=== PATIENT | male | born 1950 | race Caucasian/White ===

== ENCOUNTER 2024-12-20 10:00 | Outpatient (RCR) | payer MEDICARE, SELFPAY ==
[2024-11-29 08:51] VITALS: BP 142/93; PULSE 87; RESP 16; TEMP 36.6; BMI 36.9
--- NOTE | 2024-11-29 13:16 | HP.PCM_ITS ---
History of Present Illness Date of Service: 11/29/24 Chief Complaint: Chronic Left Leg ULcer History of Wound: Ketty is a 74-year-old who was referred to the wound center due to nonhealing left leg ulcer. Ketty states this has been an ongoing issue since age 20 however current episode has been present since September. It was noted when he looked at his lower extremity with a mirror. No significant pain. Was seen by primary care who is also surgeon and had some interventions which did not yield any significant results so was subsequently referred to the wound center. Feels rather well. Reports a diet rich in protein. Questionable history of diabetes mellitus. No chills, fever or feeling of unwell. [facility] Medical History (Updated 11/29/24 @ 16:[address] Aissatou Ricketts MD) Bilateral lower extremity edema Stasis dermatitis of both legs Ulcer of left lower extremity with fat layer exposed Home Medications ?Medication ?Instructions ?Recorded ?Last Taken ?Type atorvastatin 40 mg tablet 40 mg PO DAILY 11/29/24 Unkn own History furosemide 20 mg tablet 20 mg PO DAILY 11/29/24 Unkn own History lisinopril 2.5 mg tablet 2.5 mg PO DAILY 11/29/24 Unk nown History metoprolol succinate 25 mg 25 mg PO DAILY 11/29/24 Unk nown History tablet,extended release 24 hr (Toprol XL) Allergy/AdvReac Type Severity Reaction Status Date / Time No Known Allergies Allergy Verified 11/29/24 09:12 Social History Smoking Status: Former smoker ROS Constitutional Constitutional: Denies fatigue, frequent falls, headache(s), increased appetite, lethargy, malaise or weight loss Eyes Eyes: Denies blindness, change in eye color, change in vision, discharge from eye(s), discongugate gaze or double vision ENT HEENT: Denies dysphagia, ear discharge, epistaxis, foreign body in nose, halitosis, headache(s), hearing loss or hoarseness Cardiovascular Cardiovascular: Denies claudication, cold extremities, cyanosis, diaphoresis, dyspnea at rest, dyspnea on exertion or easily tiring during activity Respiratory/Chest Respiratory/Chest: Denies chest congestion, difficulty clearing secretions, dry cough, excessive phlegm production, hemoptysis or hoarseness Gastrointestinal Gastrointestinal: Denies abdominal pain, bloating, chewing difficulty, coffee ground emesis, constipation or dyspepsia Genitourinary Genitourinary: Denies abdominal discomfort, difficulty urinating or flank pain Musculoskeletal Musculoskeletal: Denies extremity pain, limited range of motion, muscle spasms, muscle weakness, tingling or tremors Integumentary Integumentary: Reports skin ulcer; Denies erythema, furuncle, hirsutism, jaundice or pruritus Neurologic Neurologic: Denies abnormal speech, behavior changes, burning sensations, confusion, dizziness, focal weakness or frequent falls Psychiatric Psychiatric: Denies auditory hallucinations, behavioral changes, suicidal thoughts, tactile hallucinations or visual hallucinations Endocrine Endocrinology: Denies change in body appearance, deepening of the voice, excessive sweating, fatigue, heat intolerance, increase in ring/shoe/hat size or palpitations Hematologic/Lymphatic Hematologic/Lymphatic: Denies anemia, easy bleeding or easy bruising Allergic/Immunologic Allergic/Immunologic: Denies lip swelling, rhinitis, throat swelling, tongue swelling, hives, eczemia or wheezing Vital Signs Vital Signs Vital Signs: 11/29/24 08:51 Temperature 97.9 F Temperature Source Temporal Pulse Rate 87 Respiratory Rate 16 Blood Pressure 142/93 H Blood Pressure Mean 109 Blood Pressure Source Monitor Blood Pressure Position Semi-Fowlers Blood Pressure Location Right Arm Weight Weight: 265 lb Body Mass Index (BMI) 36.9 Physical Exam Const alert, oriented x3 and no apparent distress General Appearance: cooperative, comfortable and well kempt HEENT normocephalic, head/scalp atraumatic and hearing grossly normal bilaterally Head and Scalp: normal to inspection and normocephalic Eyes EOMs intact bilaterally General Eye: normal appearance of both eyes Neck full ROM General: normal visual inspection Resp normal respiratory effort and normal air movement Effort and Inspection: able to speak in complete sentences Cardio regular rate, S1 normal heart sound and S2 normal heart sound GI soft to palpation and non-tender Extremity General Extremity: edema Skin Wounds: wounds noted size Size: See clinical note, bed with slough, drainage serous, margins well approximated, no odor, open and surrounding erythema Neuro oriented x3, CN's II-XII intact bilaterally, moves all extremities and no focal motor deficits Psych mental status grossly normal, cooperative and affect normal Debridement Note Debridement Note Wound debrided: Left lower extremity (lateral) Type of Debridement: Excisional debridement Anesthesia Used: 5% Lidocaine Gel Depth: Down to and including healthy tissue and in the subcutaneous layer Percentage of wound debrided: 100 Instrument Used: 7mm curette Tissue Removed: Slough and devitalized tissue Severity: Fat Layer Exposed Amount of bleeding with debridement: Mild Bleeding Controlled with: Pressure Patient tolerated procedure: Patient tolerated procedure well Post-Debridement Measurements and Additional Note: Post-Debridement Measurements/Treatment - Nurse 1 - General Ulcer Assessment Start: 11/29/24 08:50 Freq: Status: Active Protocol: PRAMOD.LOWEXT Activity Type Activity Date Activity User E-sign Co-sign Detail Recorded Client Recorded Date Recorded By Document 11/29/24 08:51 [id number] 11/29/24 09:09 SEE 11/29/24 08:51 - Today's Visit Information Type of service Initial Visit Arrival Mode Ambulatory Patient Identification Verified (Name & No ) Patient Requires Transmission-Based No Precautions Height and Weight Height 5 ft 11 in Weight 265 lb Weight in Pounds 265.0 lbs Body Mass Index (BMI) 36.9 BMI Classification Obese Vital Signs Temperature (97.8 F-99.1 F) 97.9 F Temperature Source Temporal Pulse Rate (60-100) 87 Pulse Location Monitor Respiratory Rate (12-18) 16 Respiratory rate source Observation Blood Pressure (90/60-120/80) 142/93 H Blood Pressure Mean 109 Source Monitor Position Semi-Fowlers Blood Pressure Location Right Arm History Since Last Visit- (Skip if this is Patient's initial visit) Left Footwear Regular Shoe Right Footwear Regular Shoe Pain Scale: 0-10 Numeric Is Patient Pain Free? Yes Lower Extremity Assessment/ Foot Assessment/ Toe Nail Assessment Left -Posterior Tibial Palpable Yes -Posterior Tibial Doppler Multiphasic -Dorsalis Pedis Palpable Yes -Dorsalis Pedis Doppler Multiphasic -Hair Growth on Legs Yes -Hair Growth on Toes No -Temperature of Extremity Warm -Capillary Refill Less than 3 Seconds -Thick Yes -Discolored Yes -Deformed Yes -Improper Length & Hygeine No Communication Assessment Preferred language [place] Able to Read Yes Able to Write Yes Communication Tools None Caregiver Communication Skills No Impairment Impairment Right Hearing Abillity Normal Left Hearing Abillity Normal Visual Assistive Devices Glasses Teaching Assessment Preferences Verbal,Written, Audio/Visual, Demonstration Barriers to Learning None Readiness To Learn Good Willingness to Engage in Self Management High Activies Readiness to Engage in Self Management High Activities Anxiety Level Calm Cooperation Cooperative Perception Coherent Interest in Health Problem Asks Questions Education Importance Acknowledges Need Does Patient Smoke tobacco or other No substances Smoking Status Former smoker Is Patient Diabetic Yes Functional Assessment Recent Decline in Ability to Perform Denies Any Declines Culture/Denominational/Motor Coach Operator Cultural/Denominational Needs that may affect No Treatment Plan Would you allow our hospital rag production worker to No meet you for the purpose of spiritual/ emotional support? Motor Coach Operator to contact place of oriental orthodox No Teaching: Wound Center [facility] Orientation/ Contacting Physician -Person Taught Patient -Teaching Method Discussion, Demonstration -Response to teaching Return Demonstration, Verbalize Understanding - Nurse 1 - General Ulcer Measurement Start: 11/29/24 08:50 Freq: Status: Active Protocol: Activity Type Activity Date Activity User E-sign Co-sign Detail Recorded Client Recorded Date Recorded By Document 11/29/24 08:51 SEE [id number] 11/29/24 09:09 SEE 11/29/24 08:51 Wound Center Nurse 1 1-Left lateral leg -Combined with other wound No -Current Size (cm) - Length 4.7 -Current Size (cm) - Width 3.2 -Current Size (cm) - Depth 0.2 -Total Square Cm 15.04 -Photo Taken Yes -Epithelialization Small 1-33% -Tunneling No -Undermining/Tunneling No -Circular Undermining No -Classification - Soler Grading ( Grade 2 Diabetic Ulcer) -Exudate Amt Medium -Exudate Type Serosanguineous -Wound Margin Flat & Intact -Granulation Amt Medium (34-66%) -Granulation Quality Red -Slough/Fibrin Yes -Necrosis Amt Medium (34-66%) -Necrotic Tissue Type Adherent Slough -Structure Exposed N/A -Texture (Ashely-wound Skin Appearance) Assessed, Localized Edema -Moisture (Ashely-wound Skin Appearance) No Abnormality, Weeping -Color (Ashely-wound Skin Appearance) Assessed, Hemosiderin Staining -Temperature (Ashely-wound Skin No Abnormality Appearance) (Pt Warm) -Tenderness on Palpation (Ashely-wound No Skin Appearance) -Ulcer Cleansing Rinsed/ Irrigated with Saline -Foul Odor after Cleansing No -Anesthetic Used 5% Lidocaine Gel Lower Limb Edema Present Yes Right Calf (cm) 40.7 Right Ankle (cm) 26.0 Left Calf (cm) 43.6 Left Ankle (cm) 27.5 - Nurse 2 - General Ulcer CM Notes Start: 11/29/24 08:50 Freq: Status: Active Protocol: Activity Type Activity Date Activity User E-sign Co-sign Detail Recorded Client Recorded Date Recorded By Document 11/29/24 09:38 [id number] 11/29/24 09:48 11/29/24 09:38 Wound Center Nurse 2 1-Left lateral leg -Time 09:38 -Correct Patient Yes -Correct Side, Site, Position Yes -Correct Procedure Yes -Procedure Performed Yes -Type of Procedure Debridement -Clinical Debridement Subcutaneous -Tissue Removed Subcutaneous -Post Debridement (cm) - Length 4.8 -Post Debridement (cm) - Width 3.4 -Post Debridement (cm) - Depth 0.2 -Total Square (Post) (cm) 16.32 -Area of Debridement (cm) - Length 4.8 -Area of Debridement (cm) - Width 3.4 -Total Square (Area) (cm) 16.32 -Tunneling No -Undermining/Tunneling No -Circular Undermining No -Wound/Ulcer Outcome Not Healed -Ulcer Cleansing Rinsed/ Irrigated with Saline -Foul Odor after Cleansing No -Bioengineered Tissue No -Bleeding Controlled with Pressure -Treatment Response Procedure Tolerated Well -Offloading No -Debridement - Subq, 1st 20sq cm Yes Pain Scale: 0-10 Numeric Is Patient Pain Free? Yes - Nurse 3 - General Ulcer D/C NN Start: 11/29/24 08:50 Freq: Status: Active Protocol: Activity Type Activity Date Activity User E-sign Co-sign Detail Recorded Client Recorded Date Recorded By Document 11/29/24 10:08 [id number] 11/29/24 10:09 11/29/24 10:08 Wound Care Center Nurse 3 1-Left lateral leg -Ulcer Cleansing Rinsed/ Irrigated with Saline -Foul Odor after Cleansing No -Primary Dressing Applied Optilok 5x5 1/2 ,Promogran -Primary Dressing Covered/Secured with Dry Gauze -Optilok 5x5 1/2 1 -Promogran 1 LLE -Lotion applied to leg before Yes compression wrap -Multi-Layered Wrap Application Multi-Layer Comp - Left ($) -Multi-Layer Compression Left (Qty 1 applied) Pain Scale: 0-10 Numeric Is Patient Pain Free? Yes - Visit Discharge Discharge Condition Stable Ambulatory Status Ambulatory Transportation Private Auto Medication Reconcilliation completed & Yes provided to patient/care provider Clinical Summary of Care Provided Yes Charges/Coding Visit Charges Office Visits / Consults: 16430 OV L4 New 45min Procedures Integumentary [id number]: [id number] Lulu subq tissue 20 sq cm/< Assessment/Plan Assessment/Plan (1) Ulcer of left lower extremity with fat layer exposed: CODE(S): L97.922 - Non-pressure chronic ulcer of unspecified part of left lower leg with fat layer exposed (2) Stasis dermatitis of both legs: CODE(S): I87.2 - Venous insufficiency (chronic) (peripheral) (3) Bilateral lower extremity edema: CODE(S): R60.0 - Localized edema PLAN: Plan Debridement done as documented above, procedure was well-tolerated. Bilateral stasis dermatitis worse on the left compared to the right. Areas of excoriation/skin breakdown. Concern for dressing changes at home, lives alone and as above, did not identify left lower extremity ulcer until looked with a mirror. Culture taken, will review. For ease, Promogran with 3M wrap for edema management. Cover area of redness with Adaptic. Come in on Tuesday for nurse visit/change. Venous and arterial studies ordered, will review. Optimal dietary protein intake and diabetes control discussed, Ketty voiced understanding. Ketty's questions were answered and Ketty was advised to call with any further questions or concerns. This note was generated with [employer] dictation software. It may contain incorrect words, spelling, and punctuation that were not noted in checking the note before signing.
--- NOTE | 2024-11-30 10:26 | WC ---
PHOTO-LEFT LATERAL LEG 11/29/24
[2024-12-03 11:07] VITALS: BP 127/95; PULSE 83; RESP 18; TEMP 36.9; BMI 36.9
--- NOTE | 2024-12-06 08:57 | ART_ITS ---
Reason For Study Reason For Study: Chronic LLE Wound Procedure A bilateral lower extremity continuous wave Doppler with analog waveform analysis,segmental pressures,and ankle brachial indexes without exercise. Left Segmental Pressures Left brachial= 116mmHg. Left posterior tibial artery = 140mmHg. Left dorsalis pedis artery = 141mmHg. Left digit = 98 mmHg. The left posterior tibial artery waveforms are triphasic. The left dorsalis pedis waveforms are triphasic. Right Segmental Pressures Right brachial= 113mmHg. Right posterior tibial artery = 140mmHg. Right dorsalis pedis artery = 128mmHg. Right digit = 108 mmHg. The right posterior tibial artery waveforms are triphasic. The right dorsalis pedis waveforms are triphasic. Indices The right ankle brachial index by the posterior tibial artery is 1.21. The right ankle brachial index by the dorsalis pedis is 1.10. The right digital-brachial index is 0.93. The left ankle brachial index by the posterior tibial artery is 1.21. The left ankle brachial index by the dorsalis pedis is 1.22. The left digital-brachial index is 0.84. VL/Lower Ext Art Exam w/o Exercis Interpretation Summary Triphasic Doppler waveforms are noted at ankle level bilaterally. Pulse-volume recordings appear satisfactory bilaterally. Resting ankle-brachial indices are normal bilaterally. Digital-bra chial indices are normal bilaterally. There is no evidence of significant arterial occlusive disease in the lower ext remities bilaterally. Ordering Physician: Aissatou Ricketts Referring Physician: Jeremías Saldivar Performed By: Gera Son RVT
--- NOTE | 2024-12-06 08:57 | VDLE_ITS ---
Reason For Study Reason For Study: LLE Chronic Wound RIGHT LEFT CFV is compressible, spontaneous, phasic, competent CFV is compressible, spontaneous, phasic, competent, and demonstrates normal augmentation. and demonstrates normal augmentation. FV is compressible, spontaneous, phasic, competent FV is compressible, spontaneous, phasic, competent and demonstrates normal augmentation. and demonstrates normal augmentation. POP V is compressible, spontaneous, phasic, competent POP V is compressible, spontaneous, phasic, competent and demonstrates normal augmentation. and demonstrates normal augmentation. T/P Trunk is compressible. T/P Trunk is compressible. PTV is compressible. PTV is compressible. RT PerV is compressible. LT PerV is compressible. SFJ is competent and measures 0.45 cm. SFJ is competent and measures 0.58 cm. GSV proximal thigh measures 0.23 x 0.26 cm. GSV proximal thigh measures 0.47 x 0.48 cm. GSV at knee measures 0.22 x 0.25 cm. GSV at knee measures 0.44 x 0.50 cm. GSV above knee is competent. GSV is competent throughout. GSV below knee is INCOMPETENT for greater than 0.5 SSV mid calf is competent and measures 0.29 x 0.28 seconds. cm. SSV mid calf is competent and measures 0.22 x 0.25 cm. Procedure Exam performed in department. This is a venous duplex using B-mode, color flow and spectral Doppler. The exam was diagnostic. VL/Venous Duplex US - [place] Extrem Interpretation Summary Deep veins of the lower extremities are bilaterally patent and compressible seg mentally. There is no evidence of deep vein thrombosis on either side. Valvular competence appears intact within the p roximal deep venous systems bilaterally. The great saphenous veins appear bilaterally patent and compressible segmentall y. Sapheno-femoral junctions are bilaterally competent . The right great saphenous vein appears competent above the knee. The right great saphenous vein appears incompetent below the knee. The left great saphenous vein appears segme ntally competent. The small saphenous veins are patent and competent bilaterally. Ordering Physician: Aissatou Ricketts Referring Physician: Jeremías Thomas Performed By: Gera Son RVT
[2024-12-06 11:19] VITALS: BP 135/79; PULSE 105; RESP 18; TEMP 36.4; BMI 36.9
[2024-12-13 10:09] VITALS: BP 138/88; PULSE 84; RESP 18; TEMP 36.5; BMI 36.9
--- NOTE | 2024-12-13 11:18 | PCM.WC.PN ---
History of Present Illness Date of Service: 12/13/24 Chief Complaint: Chronic Left Leg ULcer History of Wound: Ketty is a 74-year-old who was referred to the wound center due to nonhealing left leg ulcer. Ketty states this has been an ongoing issue since age 20 however current episode has been present since September. It was noted when he looked at his lower extremity with a mirror. No significant pain. Was seen by primary care who is also surgeon and had some interventions which did not yield any significant results so was subsequently referred to the wound center. Feels rather well. Reports a diet rich in protein. Questionable history of diabetes mellitus. No chills, fever or feeling of unwell. Progress of Wound: No acute concerns at this time. Some improvement noted since initial visit however still significant ulceration. Tolerated 3M wraps. Cultures reviewed, minimal/rare aerobic growth. Anaerobic growth noted. Objective Data Objective Data Vital Signs: Vital Signs Temp Pulse Resp BP O2 Del Method 97.7 F L 84 18 138/88 H Room Air 12/13/24 10:09 12/13/24 10:09 12/13/24 10:09 12/13/24 10:09 12/03/24 11:07 Oxygen Delivery Method Room Air Weight: 265 lb Body Mass Index (BMI) 36.9 Lab / Micro Data Micro: Microbiology 11/29/24 09:44 Wound - Leg, Left Gram Stain - Final 11/29/24 09:44 Wound - Leg, Left Wound Culture - Final Staphylococcus aureus Staphylococcus epidermidis 11/29/24 09:44 Wound - Leg, Left Anaerobic Culture - Final Lactobacillus sp. Charges/Coding Procedures Integumentary 111xxx-113xx: 26333 Lulu subq tissue 20 sq cm/< Physical Exam Const alert, oriented x3 and no apparent distress General Appearance: cooperative, comfortable and well kempt HEENT normocephalic, head/scalp atraumatic and hearing grossly normal bilaterally Head and Scalp: normal to inspection and normocephalic Eyes EOMs intact bilaterally General Eye: normal appearance of both eyes Neck full ROM General: normal visual inspection Resp normal respiratory effort Effort and Inspection: able to speak in complete sentences Extremity General Extremity: edema Skin Wounds: wounds noted size Size: See clinical note, bed with slough, drainage serous, margins well approximated, no odor, open and surrounding erythema Neuro oriented x3, CN's II-XII intact bilaterally, moves all extremities and no focal motor deficits Psych mental status grossly normal, cooperative and affect normal Debridement Note Debridement Note Wound debrided: Left lower extremity (lateral) Type of Debridement: Excisional debridement Anesthesia Used: 5% Lidocaine Gel Depth: Down to and including healthy tissue and in the subcutaneous layer Percentage of wound debrided: 100 Instrument Used: 5mm curette Tissue Removed: Slough and devitalized tissue Severity: Fat Layer Exposed Amount of bleeding with debridement: Mild Bleeding Controlled with: Pressure Patient tolerated procedure: Patient tolerated procedure well Post-Debridement Measurements and Additional Note: Post-Debridement Measurements/Treatment - Nurse 1 - General Ulcer Assessment Start: 11/29/24 08:50 Freq: Status: Active Protocol: FARIBA9+Dionisio Activity Type Activity Date Activity User E-sign Co-sign Detail Recorded Client Recorded Date Recorded By Document 11/29/24 08:51 JF [id number] 11/29/24 09:09 JF Document 12/03/24 11:07 MT [id number] 12/03/24 11:10 MT Document 12/06/24 11:19 RB [id number] 12/06/24 11:23 RB Document 12/13/24 10:09 TS [id number] 12/13/24 10:16 TS 11/29/24 12/03/24 12/06/24 08:51 11:07 11:19 - Today's Visit Information Type of service Initial Visit Nurse-only Nurse-only Visit Visit Arrival Mode Ambulatory Ambulatory Ambulatory Transfer Assistance None Accompanied by self Patient Identification Verified (Name & No Yes Yes ) Patient Requires Transmission-Based No No Precautions Safety Precautions Fall Prevention Height and Weight Height 5 ft 11 in Weight 265 lb Weight in Pounds 265.0 lbs Body Mass Index (BMI) 36.9 36.9 36.9 BMI Classification Obese Obese Obese Vital Signs Temperature (97.8 F-99.1 F) 97.9 F 98.5 F 97.5 F L Temperature Source Temporal Temporal Temporal Pulse Rate (60-100) 87 83 105 H Pulse Location Monitor Monitor Monitor Respiratory Rate (12-18) 16 18 18 Respiratory rate source Observation Monitor Observation Oxygen Delivery Method Room Air Blood Pressure (90/60-120/80) 142/93 H 127/95 H 135/79 H Blood Pressure Mean (mm Hg) 109 105 97 Source Monitor Monitor Monitor Position Semi-Fowlers Sitting Sitting Blood Pressure Location Right Arm Left Forearm Left Arm History Since Last Visit- (Skip if this is Patient's initial visit) Have you changed medications since your No last visit? Any new allergies or adverse reactions No Had a fall/change in ADL's that may No increase risk of falls Signs or symptoms of abuse and/or No neglect since last visit Have you been in the hospital since your No last visit? Has dressing in place as prescribed Yes Yes Has compression in place as prescribed Yes No Has offloadiing in place as prescribed Yes N/A Experienced any changes in pain level or Yes No management Left Footwear Regular Shoe Regular Shoe Right Footwear Regular Shoe Regular Shoe Pain Scale: 0-10 Numeric Is Patient Pain Free? Yes Yes Yes LLE -Description -Intensity -Duration (hours) -Pain Behavior -Pain Aggravating Factors -Alleviating Factors/Interventions Lower Extremity Assessment/ Foot Assessment/ Toe Nail Assessment Left -Posterior Tibial Palpable Yes -Posterior Tibial Doppler Multiphasic -Dorsalis Pedis Palpable Yes -Dorsalis Pedis Doppler Multiphasic -Hair Growth on Legs Yes -Hair Growth on Toes No -Temperature of Extremity Warm -Capillary Refill Less than 3 Seconds -Thick Yes -Discolored Yes -Deformed Yes -Improper Length & Hygeine No Communication Assessment Preferred language Upper Sorbian Able to Read Yes Able to Write Yes Communication Tools None Caregiver Communication Skills No Impairment Impairment Right Hearing Abillity Normal Left Hearing Abillity Normal Visual Assistive Devices Glasses Teaching Assessment Preferences Verbal,Written, Audio/Visual, Demonstration Barriers to Learning None Readiness To Learn Good Willingness to Engage in Self Management High Activies Readiness to Engage in Self Management High Activities Anxiety Level Calm Cooperation Cooperative Perception Coherent Interest in Health Problem Asks Questions Education Importance Acknowledges Need Does Patient Smoke tobacco or other No substances Smoking Status Former smoker Is Patient Diabetic Yes Functional Assessment Recent Decline in Ability to Perform Denies Any Declines Culture/Faith/Senior Media Director Cultural/Faith Needs that may affect No Treatment Plan Would you allow our hospital endless steamer tender to No meet you for the purpose of spiritual/ emotional support? Senior Media Director to contact place of evangelical No Teaching: Wound Center [facility] Orientation/ Contacting Physician -Person Taught Patient -Teaching Method Discussion, Demonstration -Response to teaching Return Demonstration, Verbalize Understanding 12/13/24 10:09 - Today's Visit Information Type of service Follow-up Visit (Physician/[employer] ) Arrival Mode Ambulatory Transfer Assistance None Accompanied by Patient Identification Verified (Name & Yes ) Patient Requires Transmission-Based Precautions Safety Precautions Height and Weight Height Weight Weight in Pounds Body Mass Index (BMI) 36.9 BMI Classification Obese Vital Signs Temperature (97.8 F-99.1 F) 97.7 F L Temperature Source Temporal Pulse Rate (60-100) 84 Pulse Location Monitor Respiratory Rate (12-18) 18 Respiratory rate source Observation Oxygen Delivery Method Blood Pressure (90/60-120/80) 138/88 H Blood Pressure Mean (mm Hg) 104 Source Monitor Position Sitting Blood Pressure Location Left Arm History Since Last Visit- (Skip if this is Patient's initial visit) Have you changed medications since your No last visit? Any new allergies or adverse reactions No Had a fall/change in ADL's that may No increase risk of falls Signs or symptoms of abuse and/or No neglect since last visit Have you been in the hospital since your No last visit? Has dressing in place as prescribed Yes Has compression in place as prescribed Yes Has offloadiing in place as prescribed N/A Experienced any changes in pain level or No management Left Footwear Regular Shoe Right Footwear Regular Shoe Pain Scale: 0-10 Numeric Is Patient Pain Free? Yes LLE -Description Aching -Intensity 1 -Duration (hours) Acute -Pain Behavior Withdrawal from Touch -Pain Aggravating Factors Exercise/ Activity, Debridement -Alleviating Factors/Interventions None Lower Extremity Assessment/ Foot Assessment/ Toe Nail Assessment Left -Posterior Tibial Palpable -Posterior Tibial Doppler -Dorsalis Pedis Palpable -Dorsalis Pedis Doppler -Hair Growth on Legs -Hair Growth on Toes -Temperature of Extremity -Capillary Refill -Thick -Discolored -Deformed -Improper Length & Hygeine Communication Assessment Preferred language Able to Read Able to Write Communication Tools Caregiver Communication Skills Impairment Right Hearing Abillity Left Hearing Abillity Visual Assistive Devices Teaching Assessment Preferences Barriers to Learning Readiness To Learn Willingness to Engage in Self Management Activies Readiness to Engage in Self Management Activities Anxiety Level Cooperation Perception Interest in Health Problem Education Importance Does Patient Smoke tobacco or other substances Smoking Status Is Patient Diabetic Functional Assessment Recent Decline in Ability to Perform Culture/Faith/Senior Media Director Cultural/Faith Needs that may affect Treatment Plan Would you allow our hospital endless steamer tender to meet you for the purpose of spiritual/ emotional support? Senior Media Director to contact place of evangelical Teaching: Wound Center [facility] Orientation/ Contacting Physician -Person Taught -Teaching Method -Response to teaching WC - Nurse 1 - General Ulcer Measurement Start: 11/29/24 08:50 Freq: Status: Active Protocol: Activity Type Activity Date Activity User E-sign Co-sign Detail Recorded Client Recorded Date Recorded By Document 11/29/24 08:51 JF [id number] 11/29/24 09:09 JF Document 12/03/24 11:07 MT [id number] 12/03/24 11:10 MT Document 12/06/24 11:19 RB [id number] 12/06/24 11:23 RB Document 12/13/24 10:09 TS [id number] 12/13/24 10:16 TS 11/29/24 12/03/24 12/06/24 08:51 11:07 11:19 Wound Center Nurse 1 1-Left lateral leg -Combined with other wound No -Current Size (cm) - Length 4.7 -Current Size (cm) - Width 3.2 -Current Size (cm) - Depth 0.2 -Total Square Cm 15.04 -Photo Taken Yes -Epithelialization Small 1-33% -Tunneling No -Undermining/Tunneling No -Circular Undermining No -Classification - Soler Grading ( Grade 2 Diabetic Ulcer) -Exudate Amt Medium -Exudate Type Serosanguineous -Wound Margin Flat & Intact -Granulation Amt Medium (34-66%) -Granulation Quality Red -Slough/Fibrin Yes -Necrosis Amt Medium (34-66%) -Necrotic Tissue Type Adherent Slough -Structure Exposed N/A -Texture (Ashely-wound Skin Appearance) Assessed, Localized Edema -Moisture (Ashely-wound Skin Appearance) No Abnormality, Weeping -Color (Ashely-wound Skin Appearance) Assessed, Hemosiderin Staining -Temperature (Ashely-wound Skin No Abnormality Appearance) (Pt Warm) -Tenderness on Palpation (Ashely-wound No Skin Appearance) -Ulcer Cleansing Rinsed/ Irrigated with Saline -Foul Odor after Cleansing No -Anesthetic Used 5% Lidocaine Gel Lower Limb Edema Present Yes Yes Right Calf (cm) 40.7 Right Ankle (cm) 26.0 Left Calf (cm) 43.6 26.6 40.5 Left Ankle (cm) 27.5 40.8 27.6 12/13/24 10:09 Wound Center Nurse 1 1-Left lateral leg -Combined with other wound No -Current Size (cm) - Length 5.1 -Current Size (cm) - Width 3 -Current Size (cm) - Depth 0.2 -Total Square Cm 15.3 -Photo Taken Yes -Epithelialization -Tunneling No -Undermining/Tunneling No -Circular Undermining No -Classification - Soler Grading ( Diabetic Ulcer) -Exudate Amt Large -Exudate Type Serosanguineous -Wound Margin Distinct, Outline Attached -Granulation Amt Medium (34-66%) -Granulation Quality [place] -Slough/Fibrin Yes -Necrosis Amt -Necrotic Tissue Type Adherent Slough -Structure Exposed N/A -Texture (Ashely-wound Skin Appearance) Assessed -Moisture (Ashely-wound Skin Appearance) Assessed -Color (Ashely-wound Skin Appearance) Hemosiderin Staining -Temperature (Ashely-wound Skin No Abnormality Appearance) (Pt Warm) -Tenderness on Palpation (Ashely-wound No Skin Appearance) -Ulcer Cleansing Wound Cleanser -Foul Odor after Cleansing No -Anesthetic Used 5% Lidocaine Gel Lower Limb Edema Present Yes Right Calf (cm) Right Ankle (cm) Left Calf (cm) 39.5 Left Ankle (cm) 26.2 WC - Nurse 2 - General Ulcer CM Notes Start: 11/29/24 08:50 Freq: Status: Active Protocol: Activity Type Activity Date Activity User E-sign Co-sign Detail Recorded Client Recorded Date Recorded By Document 11/29/24 09:38 [id number] 11/29/24 09:48 Document 12/13/24 10:26 [id number] 12/13/24 10:30 11/29/24 12/13/24 09:38 10:26 Wound Center Nurse 2 1-Left lateral leg -Time 09:38 10:27 -Correct Patient Yes Yes -Correct Side, Site, Position Yes Yes -Correct Procedure Yes Yes -Procedure Performed Yes Yes -Type of Procedure Debridement Debridement -Clinical Debridement Subcutaneous Subcutaneous -Tissue Removed Subcutaneous Subcutaneous -Post Debridement (cm) - Length 4.8 -Post Debridement (cm) - Width 3.4 -Post Debridement (cm) - Depth 0.2 -Total Square (Post) (cm) 16.32 -Area of Debridement (cm) - Length 4.8 -Area of Debridement (cm) - Width 3.4 -Total Square (Area) (cm) 16.32 -Tunneling No No -Undermining/Tunneling No No -Circular Undermining No No -Wound/Ulcer Outcome Not Healed Not Healed -Ulcer Cleansing Rinsed/ Rinsed/ Irrigated with Irrigated with Saline Saline -Foul Odor after Cleansing No No -Bioengineered Tissue No No -Bleeding Controlled with Pressure Pressure -Treatment Response Procedure Procedure Tolerated Well Tolerated Well -Offloading No No -Debridement - Subq, 1st 20sq cm Yes Yes Pain Scale: 0-10 Numeric Is Patient Pain Free? Yes Yes WC - Nurse 3 - General Ulcer D/C NN Start: 11/29/24 08:50 Freq: Status: Active Protocol: Activity Type Activity Date Activity User E-sign Co-sign Detail Recorded Client Recorded Date Recorded By Document 11/29/24 10:08 JF [id number] 11/29/24 10:09 JF Document 12/03/24 11:07 MT [id number] 12/03/24 11:10 MT Document 12/06/24 11:19 RB [id number] 12/06/24 11:23 RB Document 12/13/24 10:53 RB [id number] 12/13/24 10:54 RB 11/29/24 12/03/24 12/06/24 10:08 11:07 11:19 Wound Care Center Nurse 3 1-Left lateral leg -Ulcer Cleansing Rinsed/ Wound Cleanser Irrigated with Saline -Foul Odor after Cleansing No No -Negative Pressure Wound Therapy N/A -Primary Dressing Applied Optilok 5x5 1/2 Optilok 5x5 1/2 Optilok 5x5 1/2 ,Promogran ,Promogran ,Promogran -Primary Dressing Covered/Secured with Dry Gauze -Optilok 5x5 1/2 1 1 1 -Promogran 1 1 1 Ashely-Wound Care Lotion LLE -Lotion applied to leg before Yes compression wrap -Multi-Layered Wrap Application Multi-Layer Multi-Layer Multi-Layer Comp - Left ($) Comp - Left ($) Comp - Left ($) -Multi-Layer Compression Left (Qty 1 1 1 applied) Treatment Response Procedure Tolerated Well Pain Scale: 0-10 Numeric Is Patient Pain Free? Yes Yes Yes WC - Visit Discharge Discharge Condition Stable Stable Stable Ambulatory Status Ambulatory Ambulatory Ambulatory Transportation Private Auto Private Auto Private Auto Medication Reconcilliation completed & Yes No No provided to patient/care provider Clinical Summary of Care Provided Yes Yes No Notes: pt 3M removed per WC at vascular studies today 10/23/25 10:53 Wound Care Center Nurse 3 1-Left lateral leg -Ulcer Cleansing Rinsed/ Irrigated with Saline -Foul Odor after Cleansing -Negative Pressure Wound Therapy -Primary Dressing Applied Optilok 5x5 1/2 ,Promogran -Primary Dressing Covered/Secured with -Optilok 5x5 1/2 1 -Promogran 1 Ashely-Wound Care LLE -Lotion applied to leg before compression wrap -Multi-Layered Wrap Application Multi-Layer Comp - Left ($) -Multi-Layer Compression Left (Qty 1 applied) Treatment Response Procedure Tolerated Well Pain Scale: 0-10 Numeric Is Patient Pain Free? Yes WC - Visit Discharge Discharge Condition Stable Ambulatory Status Ambulatory Transportation Private Auto Medication Reconcilliation completed & No provided to patient/care provider Clinical Summary of Care Provided Yes Notes: Assessment/Plan Assessment/Plan (1) Ulcer of left lower extremity with fat layer exposed: CODE(S): L97.922 - Non-pressure chronic ulcer of unspecified part of left lower leg with fat layer exposed (2) Stasis dermatitis of both legs: CODE(S): I87.2 - Venous insufficiency (chronic) (peripheral) (3) Bilateral lower extremity edema: CODE(S): R60.0 - Localized edema PLAN: Plan Debridement done as documented above, procedure was well-tolerated. No acute concerns reported at this time. Area of erythema has improved and some improvement in ulceration however, nothing significant. Due to chronicity, I believe would benefit from a skin substitute, we will begin process. For now, continue Promogran covered with Adaptic and foam dressing. Come in on Tuesday for nurse visit/change. Continue optimal dietary protein intake and diabetes control. Ketty's questions were answered and Ketty was advised to call with any further questions or concerns. Follow-up in a week or sooner if needed. This note was generated with [employer] dictation software. It may contain incorrect words, spelling, and punctuation that were not noted in checking the note before signing.
[2024-12-17 12:02] VITALS: BP 123/88; PULSE 87; RESP 15; TEMP 35.9; BMI 36.9
[2024-12-20 10:11] VITALS: BP 124/87; PULSE 98; RESP 18; TEMP 36.4; BMI 36.9
--- NOTE | 2024-12-20 11:11 | PCM.WC.PN ---
History of Present Illness Date of Service: 12/20/24 Chief Complaint: Chronic Left Leg ULcer History of Wound: Ketty is a 74-year-old who was referred to the wound center due to nonhealing left leg ulcer. Ketty states this has been an ongoing issue since age 20 however current episode has been present since September. It was noted when he looked at his lower extremity with a mirror. No significant pain. Was seen by primary care who is also surgeon and had some interventions which did not yield any significant results so was subsequently referred to the wound center. Feels rather well. Reports a diet rich in protein. Questionable history of diabetes mellitus. No chills, fever or feeling of unwell. Progress of Wound: Application for EpiFix began last week however, still in progress. No acute concerns reported. Tolerating 3M wrap however concern for dermatitis. Objective Data Objective Data Vital Signs: Vital Signs Temp Pulse Resp BP O2 Del Method 97.6 F L 98 18 124/87 H Room Air 12/20/24 10:11 12/20/24 10:11 12/20/24 10:11 12/20/24 10:11 12/20/24 10:11 Oxygen Delivery Method Room Air Weight: 265 lb Body Mass Index (BMI) 36.9 Lab / Micro Data Micro: Microbiology 11/29/24 09:44 Wound - Leg, Left Gram Stain - Final 11/29/24 09:44 Wound - Leg, Left Wound Culture - Final Staphylococcus aureus Staphylococcus epidermidis 11/29/24 09:44 Wound - Leg, Left Anaerobic Culture - Final Lactobacillus sp. Charges/Coding Procedures Integumentary [id number]: [id number] Lulu subq tissue 20 sq cm/< Physical Exam Const alert, oriented x3 and no apparent distress General Appearance: cooperative, comfortable and well kempt HEENT normocephalic, head/scalp atraumatic and hearing grossly normal bilaterally Head and Scalp: normal to inspection and normocephalic Eyes EOMs intact bilaterally General Eye: normal appearance of both eyes Neck full ROM General: normal visual inspection Resp normal respiratory effort Effort and Inspection: able to speak in complete sentences Extremity General Extremity: edema Skin Wounds: wounds noted size Size: See clinical note, bed with slough, margins well approximated, no odor, open and surrounding erythema Neuro oriented x3, CN's II-XII intact bilaterally, moves all extremities and no focal motor deficits Psych mental status grossly normal, cooperative and affect normal Debridement Note Debridement Note Wound debrided: Left lower extremity (lateral) Type of Debridement: Excisional debridement Anesthesia Used: 5% Lidocaine Gel Depth: Down to and including healthy tissue and in the subcutaneous layer Percentage of wound debrided: 100 Instrument Used: 7mm curette Tissue Removed: Slough and devitalized tissue Severity: Fat Layer Exposed Amount of bleeding with debridement: Mild Bleeding Controlled with: Pressure Patient tolerated procedure: Patient tolerated procedure well Post-Debridement Measurements and Additional Note: Post-Debridement Measurements/Treatment - Nurse 1 - General Ulcer Assessment Start: 11/29/24 08:50 Freq: Status: Active Protocol: .TruLeaf Activity Type Activity Date Activity User E-sign Co-sign Detail Recorded Client Recorded Date Recorded By Document 11/29/24 08:51 JF [id number] 11/29/24 09:09 Document 12/03/24 11:07 MT [id number] 12/03/24 11:10 MT Document 12/06/24 11:19 RB [id number] 12/06/24 11:23 RB Document 12/13/24 10:09 TS [id number] 12/13/24 10:16 TS Document 12/17/24 12:02 MT [id number] 12/17/24 12:11 MT Document 12/20/24 10:11 RB [id number] 12/20/24 10:12 RB 11/29/24 12/03/24 12/06/24 08:51 11:07 11:19 - Today's Visit Information Type of service Initial Visit Nurse-only Nurse-only Visit Visit Arrival Mode Ambulatory Ambulatory Ambulatory Transfer Assistance None Accompanied by self Patient Identification Verified (Name & No Yes Yes ) Patient Requires Transmission-Based No No Precautions Safety Precautions Fall Prevention Height and Weight Height 5 ft 11 in Weight 265 lb Weight in Pounds 265.0 lbs Body Mass Index (BMI) 36.9 36.9 36.9 BMI Classification Obese Obese Obese Vital Signs Temperature (97.8 F-99.1 F) 97.9 F 98.5 F 97.5 F L Temperature Source Temporal Temporal Temporal Pulse Rate (60-100) 87 83 105 H Pulse Location Monitor Monitor Monitor Respiratory Rate (12-18) 16 18 18 Respiratory rate source Observation Monitor Observation Oxygen Delivery Method Room Air Blood Pressure (90/60-120/80) 142/93 H 127/95 H 135/79 H Blood Pressure Mean (mm Hg) 109 105 97 Source Monitor Monitor Monitor Position Semi-Fowlers Sitting Sitting Blood Pressure Location Right Arm Left Forearm Left Arm History Since Last Visit- (Skip if this is Patient's initial visit) Have you changed medications since your No last visit? Any new allergies or adverse reactions No Had a fall/change in ADL's that may No increase risk of falls Signs or symptoms of abuse and/or No neglect since last visit Have you been in the hospital since your No last visit? Has dressing in place as prescribed Yes Yes Has compression in place as prescribed Yes No Has offloadiing in place as prescribed Yes N/A Experienced any changes in pain level or Yes No management Left Footwear Regular Shoe Regular Shoe Right Footwear Regular Shoe Regular Shoe Pain Scale: 0-10 Numeric Is Patient Pain Free? Yes Yes Yes LLE -Description -Intensity -Duration (hours) -Pain Behavior -Pain Aggravating Factors -Alleviating Factors/Interventions Lower Extremity Assessment/ Foot Assessment/ Toe Nail Assessment Left -Posterior Tibial Palpable Yes -Posterior Tibial Doppler Multiphasic -Dorsalis Pedis Palpable Yes -Dorsalis Pedis Doppler Multiphasic -Hair Growth on Legs Yes -Hair Growth on Toes No -Temperature of Extremity Warm -Capillary Refill Less than 3 Seconds -Thick Yes -Discolored Yes -Deformed Yes -Improper Length & Hygeine No Communication Assessment Preferred language Polish Able to Read Yes Able to Write Yes Communication Tools None Caregiver Communication Skills No Impairment Impairment Right Hearing Abillity Normal Left Hearing Abillity Normal Visual Assistive Devices Glasses Teaching Assessment Preferences Verbal,Written, Audio/Visual, Demonstration Barriers to Learning None Readiness To Learn Good Willingness to Engage in Self Management High Activies Readiness to Engage in Self Management High Activities Anxiety Level Calm Cooperation Cooperative Perception Coherent Interest in Health Problem Asks Questions Education Importance Acknowledges Need Does Patient Smoke tobacco or other No substances Smoking Status Former smoker Is Patient Diabetic Yes Functional Assessment Recent Decline in Ability to Perform Denies Any Declines Culture/Pentecostalism/Sql Server Bi Developer Cultural/Pentecostalism Needs that may affect No Treatment Plan Would you allow our hospital blood bank calendar control clerk to No meet you for the purpose of spiritual/ emotional support? Sql Server Bi Developer to contact place of religious No Teaching: Wound Center [facility] Orientation/ Contacting Physician -Person Taught Patient -Teaching Method Discussion, Demonstration -Response to teaching Return Demonstration, Verbalize Understanding 12/13/24 12/17/24 12/20/24 10:09 12:02 10:11 WC - Today's Visit Information Type of service Follow-up Visit Nurse-only Follow-up Visit (Physician/BISQUE GRADER Visit (Physician/BISQUE GRADER ) ) Arrival Mode Ambulatory Ambulatory Transfer Assistance None Manual Accompanied by Patient Identification Verified (Name & Yes Yes Yes ) Patient Requires Transmission-Based No No Precautions Safety Precautions Height and Weight Height Weight Weight in Pounds Body Mass Index (BMI) 36.9 36.9 36.9 BMI Classification Obese Obese Obese Vital Signs Temperature (97.8 F-99.1 F) 97.7 F L 96.6 F L 97.6 F L Temperature Source Temporal Temporal Temporal Pulse Rate (60-100) 84 87 98 Pulse Location Monitor Monitor Monitor Respiratory Rate (12-18) 18 15 18 Respiratory rate source Observation Monitor Observation Oxygen Delivery Method Room Air Blood Pressure (90/60-120/80) 138/88 H 123/88 H 124/87 H Blood Pressure Mean (mm Hg) 104 99 99 Source Monitor Monitor Monitor Position Sitting Sitting Sitting Blood Pressure Location Left Arm Right Forearm Left Arm History Since Last Visit- (Skip if this is Patient's initial visit) Have you changed medications since your No No No last visit? Any new allergies or adverse reactions No No No Had a fall/change in ADL's that may No No No increase risk of falls Signs or symptoms of abuse and/or No No No neglect since last visit Have you been in the hospital since your No No No last visit? Has dressing in place as prescribed Yes Yes Yes Has compression in place as prescribed Yes Yes Yes Has offloadiing in place as prescribed N/A Yes No Experienced any changes in pain level or No No No management Left Footwear Regular Shoe Regular Shoe Right Footwear Regular Shoe Regular Shoe Pain Scale: 0-10 Numeric Is Patient Pain Free? Yes Yes Yes LLE -Description Aching -Intensity 1 -Duration (hours) Acute -Pain Behavior Withdrawal from Touch -Pain Aggravating Factors Exercise/ Activity, Debridement -Alleviating Factors/Interventions None Lower Extremity Assessment/ Foot Assessment/ Toe Nail Assessment Left -Posterior Tibial Palpable -Posterior Tibial Doppler -Dorsalis Pedis Palpable -Dorsalis Pedis Doppler -Hair Growth on Legs -Hair Growth on Toes -Temperature of Extremity -Capillary Refill -Thick -Discolored -Deformed -Improper Length & Hygeine Communication Assessment Preferred language Able to Read Able to Write Communication Tools Caregiver Communication Skills Impairment Right Hearing Abillity Left Hearing Abillity Visual Assistive Devices Teaching Assessment Preferences Barriers to Learning Readiness To Learn Willingness to Engage in Self Management Activies Readiness to Engage in Self Management Activities Anxiety Level Cooperation Perception Interest in Health Problem Education Importance Does Patient Smoke tobacco or other substances Smoking Status Is Patient Diabetic Functional Assessment Recent Decline in Ability to Perform Culture/Pentecostalism/Sql Server Bi Developer Cultural/Pentecostalism Needs that may affect Treatment Plan Would you allow our hospital blood bank calendar control clerk to meet you for the purpose of spiritual/ emotional support? Sql Server Bi Developer to contact place of religious Teaching: Wound Center [facility] Orientation/ Contacting Physician -Person Taught -Teaching Method -Response to teaching WC - Nurse 1 - General Ulcer Measurement Start: 11/29/24 08:50 Freq: Status: Active Protocol: Activity Type Activity Date Activity User E-sign Co-sign Detail Recorded Client Recorded Date Recorded By Document 11/29/24 08:51 JF [id number] 11/29/24 09:09 JF Document 12/03/24 11:07 MT [id number] 12/03/24 11:10 MT Document 12/06/24 11:19 RB [id number] 12/06/24 11:23 RB Document 12/13/24 10:09 TS [id number] 12/13/24 10:16 TS Document 12/20/24 10:11 RB [id number] 12/20/24 10:12 RB 11/29/24 12/03/24 12/06/24 08:51 11:07 11:19 Wound Center Nurse 1 1-Left lateral leg -Combined with other wound No -Current Size (cm) - Length 4.7 -Current Size (cm) - Width 3.2 -Current Size (cm) - Depth 0.2 -Total Square Cm 15.04 -Photo Taken Yes -Epithelialization Small 1-33% -Tunneling No -Undermining/Tunneling No -Circular Undermining No -Classification - Soler Grading ( Grade 2 Diabetic Ulcer) -Exudate Amt Medium -Exudate Type Serosanguineous -Wound Margin Flat & Intact -Granulation Amt Medium (34-66%) -Granulation Quality Red -Slough/Fibrin Yes -Necrosis Amt Medium (34-66%) -Necrotic Tissue Type Adherent Slough -Structure Exposed N/A -Texture (Ashely-wound Skin Appearance) Assessed, Localized Edema -Moisture (Ashely-wound Skin Appearance) No Abnormality, Weeping -Color (Ashely-wound Skin Appearance) Assessed, Hemosiderin Staining -Temperature (Ashely-wound Skin No Abnormality Appearance) (Pt Warm) -Tenderness on Palpation (Ashely-wound No Skin Appearance) -Ulcer Cleansing Rinsed/ Irrigated with Saline -Foul Odor after Cleansing No -Anesthetic Used 5% Lidocaine Gel Lower Limb Edema Present Yes Yes Right Calf (cm) 40.7 Right Ankle (cm) 26.0 Left Calf (cm) 43.6 26.6 40.5 Left Ankle (cm) 27.5 40.8 27.6 12/13/24 12/20/24 10:09 10:11 Wound Center Nurse 1 1-Left lateral leg -Combined with other wound No No -Current Size (cm) - Length 5.1 4.3 -Current Size (cm) - Width 3 2.7 -Current Size (cm) - Depth 0.2 0.2 -Total Square Cm 15.3 11.61 -Photo Taken Yes Yes -Epithelialization -Tunneling No No -Undermining/Tunneling No No -Circular Undermining No No -Classification - Soler Grading ( Diabetic Ulcer) -Exudate Amt Large Large -Exudate Type Serosanguineous Serosanguineous -Wound Margin Distinct, Thickened & Outline Rolled Under Attached -Granulation Amt Medium (34-66%) Large (67-100%) -Granulation Quality [place] -Slough/Fibrin Yes Yes -Necrosis Amt Medium (34-66%) -Necrotic Tissue Type Adherent Slough Adherent Slough -Structure Exposed N/A N/A -Texture (Ashely-wound Skin Appearance) Assessed Assessed -Moisture (Ashely-wound Skin Appearance) Assessed Assessed -Color (Ashely-wound Skin Appearance) Hemosiderin Hemosiderin Staining Staining -Temperature (Ashely-wound Skin No Abnormality No Abnormality Appearance) (Pt Warm) (Pt Warm) -Tenderness on Palpation (Ashely-wound No No Skin Appearance) -Ulcer Cleansing Wound Cleanser Wound Cleanser -Foul Odor after Cleansing No No -Anesthetic Used 5% Lidocaine Gel Lower Limb Edema Present Yes Yes Right Calf (cm) Right Ankle (cm) Left Calf (cm) 39.5 38.6 Left Ankle (cm) 26.2 26 WC - Nurse 2 - General Ulcer CM Notes Start: 11/29/24 08:50 Freq: Status: Active Protocol: Activity Type Activity Date Activity User E-sign Co-sign Detail Recorded Client Recorded Date Recorded By Document 11/29/24 09:38 GM [id number] 11/29/24 09:48 GM Document 12/13/24 10:26 GM [id number] 12/13/24 10:30 GM Document 12/20/24 10:25 DS [id number] 12/20/24 10:26 DS 11/29/24 12/13/24 12/20/24 09:38 10:26 10:25 Wound Center Nurse 2 1-Left lateral leg -Time 09: 10:27 10:25 -Correct Patient Yes Yes Yes -Correct Side, Site, Position Yes Yes Yes -Correct Procedure Yes Yes Yes -Procedure Performed Yes Yes Yes -Type of Procedure Debridement Debridement Debridement -Clinical Debridement Subcutaneous Subcutaneous Subcutaneous -Tissue Removed Subcutaneous Subcutaneous Subcutaneous -Post Debridement (cm) - Length 4.8 4.5 -Post Debridement (cm) - Width 3.4 2.4 -Post Debridement (cm) - Depth 0.2 0.2 -Total Square (Post) (cm) 16.32 10.80 -Area of Debridement (cm) - Length 4.8 4.5 -Area of Debridement (cm) - Width 3.4 2.4 -Total Square (Area) (cm) 16.32 10.80 -Tunneling No No No -Undermining/Tunneling No No No -Circular Undermining No No No -Wound/Ulcer Outcome Not Healed Not Healed Not Healed -Ulcer Cleansing Rinsed/ Rinsed/ Rinsed/ Irrigated with Irrigated with Irrigated with Saline Saline Saline -Foul Odor after Cleansing No No No -Bioengineered Tissue No No No -Bleeding Controlled with Pressure Pressure Pressure -Treatment Response Procedure Procedure Procedure Tolerated Well Tolerated Well Tolerated Well -Offloading No No -Debridement - Subq, 1st 20sq cm Yes Yes Yes Pain Scale: 0-10 Numeric Is Patient Pain Free? Yes Yes Yes - Nurse 3 - General Ulcer D/C NN Start: 11/29/24 08:50 Freq: Status: Active Protocol: Activity Type Activity Date Activity User E-sign Co-sign Detail Recorded Client Recorded Date Recorded By Document 11/29/24 10:08 [id number] 11/29/24 10:09 Document 12/03/24 11:07 MT [id number] 12/03/24 11:10 MT Document 12/06/24 11:19 RB [id number] 12/06/24 11:23 RB Document 12/13/24 10:53 RB [id number] 12/13/24 10:54 RB Document 12/17/24 12:02 MT [id number] 12/17/24 12:11 MT Edit Result 12/17/24 12:02 MT (1) [id number] 12/19/24 12:52 MT Document 12/20/24 10:33 TS [id number] 12/20/24 10:45 TS (1) 1-Left lateral leg - NPWT Application Charge NPWT </= 50 sq cm => (disp) ($) => 11/29/24 12/03/24 12/06/24 10:08 11:07 11:19 Wound Care Center Nurse 3 1-Left lateral leg -Ulcer Cleansing Rinsed/ Wound Cleanser Irrigated with Saline -Foul Odor after Cleansing No No -Negative Pressure Wound Therapy N/A -Primary Dressing Applied Optilok 5x5 1/2 Optilok 5x5 1/2 Optilok 5x5 1/2 ,Promogran ,Promogran ,Promogran -Primary Dressing Covered/Secured with Dry Gauze -Optilok 5x5 1/2 1 1 1 -Promogran 1 1 1 Ashely-Wound Care Lotion LLE -Lotion applied to leg before Yes compression wrap -Multi-Layered Wrap Application Multi-Layer Multi-Layer Multi-Layer Comp - Left ($) Comp - Left ($) Comp - Left ($) -Unna- Left (Qty applied) -Multi-Layer Compression Left (Qty 1 1 1 applied) -Multi-Layer Compression Right (Qty applied) Treatment Response Procedure Tolerated Well Pain Scale: 0-10 Numeric Is Patient Pain Free? Yes Yes Yes WC - Visit Discharge Discharge Condition Stable Stable Stable Ambulatory Status Ambulatory Ambulatory Ambulatory Transportation Private Auto Private Auto Private Auto Medication Reconcilliation completed & Yes No No provided to patient/care provider Clinical Summary of Care Provided Yes Yes No Notes: pt 3M removed per WC at vascular studies today 12/13/24 12/17/24 12/20/24 10:53 12:02 10:33 Wound Care Center Nurse 3 1-Left lateral leg -Ulcer Cleansing Rinsed/ Soap and Water Irrigated with Saline -Foul Odor after Cleansing -Negative Pressure Wound Therapy -Primary Dressing Applied Optilok 5x5 1/2 Optilok 5x5 1/2 Promogran ,Promogran ,Promogran -Primary Dressing Covered/Secured with -Optilok 5x5 1/2 1 1 -Promogran 1 1 1 Ashely-Wound Care LLE -Lotion applied to leg before Yes compression wrap -Multi-Layered Wrap Application Multi-Layer Multi-Layer Unna Boot - Comp - Left ($) Comp - Right ($ Left ) -Unna- Left (Qty applied) 1 -Multi-Layer Compression Left (Qty 1 applied) -Multi-Layer Compression Right (Qty 1 applied) Treatment Response Procedure Tolerated Well Pain Scale: 0-10 Numeric Is Patient Pain Free? Yes Yes Yes WC - Visit Discharge Discharge Condition Stable Stable Ambulatory Status Ambulatory Ambulatory Transportation Private Auto Private Auto Medication Reconcilliation completed & No No provided to patient/care provider Clinical Summary of Care Provided Yes Yes Notes: Assessment/Plan Assessment/Plan (1) Ulcer of left lower extremity with fat layer exposed: CODE(S): L97.922 - Non-pressure chronic ulcer of unspecified part of left lower leg with fat layer exposed (2) Stasis dermatitis of both legs: CODE(S): I87.2 - Venous insufficiency (chronic) (peripheral) (3) Bilateral lower extremity edema: CODE(S): R60.0 - Localized edema PLAN: Plan Debridement done as documented above, procedure was well-tolerated. Overall, stable. EpiFix application still in progress. Continue Promogran, cover with Adaptic and foam dressing. Switch compression to Unna boots due to concern for stasis dermatitis. Encourage leg elevation, exercise as tolerated. Optimize dietary/protein intake. Advised to call with any further questions or concerns. Follow-up in a week or sooner if needed. This note was generated with [employer] dictation software. It may contain incorrect words, spelling, and punctuation that were not noted in checking the note before signing.
--- NOTE | 2024-12-21 07:43 | WC ---
PHOTO-LEFT LAT LEG 12/20/24
== END 2024-12-21 23:59 | disposition home or self-care (01) ==
LOC: WC 10:00
PROVIDERS: PCP Internal Medicine; Referring Provider Internal Medicine; Visit Provider Internal Medicine
DX: L97.922 Non-pressure chronic ulcer of unspecified part of left lower leg with fat layer exposed (principal); I87.2 Venous insufficiency (chronic) (peripheral); Z87.891 Personal history of nicotine dependence; R60.0 Localized edema
CPT/HCPCS: 11042; 29580; 29581; 87070; 87075; 87077; 87186; 87205; 93923; 93970; 97607; 99203; G0463

== ENCOUNTER 2025-01-16 09:45 | Outpatient (RCR) | payer MEDICARE, SELFPAY ==
[2024-12-24 11:03] VITALS: BP 137/84; PULSE 87; RESP 16; TEMP 36.2
[2024-12-27 10:10] VITALS: BP 120/80; PULSE 97; RESP 18; TEMP 36.7
--- NOTE | 2024-12-27 10:38 | PCM.WC.PN ---
History of Present Illness Date of Service: 12/27/24 Chief Complaint: Chronic Left Leg ULcer History of Wound: Ketty is a 74-year-old who was referred to the wound center due to nonhealing left leg ulcer. Ketty states this has been an ongoing issue since age 20 however current episode has been present since September. It was noted when he looked at his lower extremity with a mirror. No significant pain. Was seen by primary care who is also surgeon and had some interventions which did not yield any significant results so was subsequently referred to the wound center. Feels rather well. Reports a diet rich in protein. Questionable history of diabetes mellitus. No chills, fever or feeling of unwell. Progress of Wound: No acute concerns at this time. Application for skin substitute still pending. Tolerated Unna boots well. Stasis dermatitis did show some improvement. Objective Data Objective Data Vital Signs: Vital Signs Temp Pulse Resp BP O2 Del Method 98.1 F 97 18 120/80 Room Air 12/27/24 10:10 12/27/24 10:10 12/27/24 10:10 12/27/24 10:10 12/27/24 10:10 Oxygen Delivery Method Room Air Charges/Coding Procedures Integumentary 111xxx-113xx: 29519 Lulu subq tissue 20 sq cm/< Physical Exam Const alert, oriented x3 and no apparent distress General Appearance: cooperative, comfortable and well kempt HEENT normocephalic, head/scalp atraumatic and hearing grossly normal bilaterally Head and Scalp: normal to inspection and normocephalic Eyes EOMs intact bilaterally General Eye: normal appearance of both eyes Neck full ROM General: normal visual inspection Resp normal respiratory effort Effort and Inspection: able to speak in complete sentences Extremity General Extremity: edema Skin Wounds: wounds noted size Size: See clinical note, bed with slough, margins well approximated, no odor, open and surrounding erythema Neuro oriented x3, CN's II-XII intact bilaterally, moves all extremities and no focal motor deficits Psych mental status grossly normal, cooperative and affect normal Debridement Note Debridement Note Wound debrided: Left lower extremity (lateral) Type of Debridement: Excisional debridement Anesthesia Used: 5% Lidocaine Gel Depth: Down to and including healthy tissue and in the subcutaneous layer Percentage of wound debrided: 100 Instrument Used: 5mm curette Tissue Removed: Slough and devitalized tissue Severity: Fat Layer Exposed Amount of bleeding with debridement: Mild Bleeding Controlled with: Pressure Patient tolerated procedure: Patient tolerated procedure well Post-Debridement Measurements and Additional Note: Post-Debridement Measurements/Treatment - Nurse 1 - General Ulcer Assessment Start: 12/24/24 11:03 Freq: Status: Active Protocol: TANA Activity Type Activity Date Activity User E-sign Co-sign Detail Recorded Client Recorded Date Recorded By Document 12/24/24 11:03 SEE [id number] 12/24/24 11:04 JF Document 12/27/24 10:10 RB [id number] 12/27/24 10:14 RB 12/24/24 12/27/24 11:03 10:10 WC - Today's Visit Information Type of service Nurse-only Follow-up Visit Visit (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 ) Arrival Mode Ambulatory Ambulatory Transfer Assistance None Patient Identification Verified (Name & Yes Yes ) Patient Requires Transmission-Based No No Precautions Vital Signs Temperature (97.8 F-99.1 F) 97.1 F L 98.1 F Temperature Source Temporal Temporal Pulse Rate (60-100) 87 97 Pulse Location Monitor Monitor Respiratory Rate (12-18) 16 18 Respiratory rate source Observation Observation Oxygen Delivery Method Room Air Blood Pressure (90/60-120/80) 137/84 H 120/80 Blood Pressure Mean (mm Hg) 101 93 Source Monitor Monitor Position Semi-Fowlers Sitting Blood Pressure Location Right Arm Left Arm History Since Last Visit- (Skip if this is Patient's initial visit) Have you changed medications since your No last visit? Any new allergies or adverse reactions No Had a fall/change in ADL's that may No increase risk of falls Signs or symptoms of abuse and/or No neglect since last visit Have you been in the hospital since your No last visit? Has dressing in place as prescribed Yes Has compression in place as prescribed Yes Has offloadiing in place as prescribed N/A Experienced any changes in pain level or No management Left Footwear Regular Shoe Regular Shoe Right Footwear Regular Shoe Slipper Pain Scale: 0-10 Numeric Is Patient Pain Free? Yes Yes LLE -Description Aching -Intensity 1 -Duration (hours) Acute -Pain Behavior Irritability -Pain Aggravating Factors ADL's -Alleviating Factors/Interventions None - Nurse 1 - General Ulcer Measurement Start: 12/24/24 11:03 Freq: Status: Active Protocol: Activity Type Activity Date Activity User E-sign Co-sign Detail Recorded Client Recorded Date Recorded By Document 12/24/24 11:03 JF [id number] 12/24/24 11:04 JF Document 12/27/24 10:10 RB [id number] 12/27/24 10:14 RB 12/24/24 12/27/24 11:03 10:10 Wound Center Nurse 1 1-Left lateral leg -Combined with other wound No -Current Size (cm) - Length 4.3 -Current Size (cm) - Width 2.4 -Current Size (cm) - Depth 0.2 -Total Square Cm 10.32 -Date of Last Picture (Recall this 12/27/24 field) -Photo Taken Yes -Epithelialization Small 1-33% -Tunneling No -Undermining/Tunneling No -Circular Undermining No -Exudate Amt Medium -Exudate Type Serosanguineous -Wound Margin Thickened & Rolled Under -Granulation Amt Large (67-100%) -Granulation Quality [place] -Slough/Fibrin Yes -Necrosis Amt Small (1-33%) -Necrotic Tissue Type Adherent Slough -Structure Exposed N/A -Texture (Ashely-wound Skin Appearance) Assessed -Moisture (Ashely-wound Skin Appearance) Assessed -Color (Ashely-wound Skin Appearance) Hemosiderin Staining -Temperature (Ashely-wound Skin No Abnormality Appearance) (Pt Warm) -Tenderness on Palpation (Ashely-wound No Skin Appearance) -Ulcer Cleansing Wound Cleanser -Foul Odor after Cleansing No -Anesthetic Used 5% Lidocaine Gel Lower Limb Edema Present Yes Yes Left Calf (cm) 39 38.6 Left Ankle (cm) 26 26.6 WC - Nurse 2 - General Ulcer CM Notes Start: 12/24/24 11:03 Freq: Status: Active Protocol: Activity Type Activity Date Activity User E-sign Co-sign Detail Recorded Client Recorded Date Recorded By Document 12/27/24 10:28 [id number] 12/27/24 10:29 12/27/24 10:28 Wound Center Nurse 2 1-Left lateral leg -Time 10:29 -Correct Patient Yes -Correct Side, Site, Position Yes -Correct Procedure Yes -Procedure Performed Yes -Type of Procedure Debridement -Clinical Debridement Subcutaneous -Tissue Removed Subcutaneous -Post Debridement (cm) - Length 4.1 -Post Debridement (cm) - Width 2.2 -Post Debridement (cm) - Depth 0.2 -Total Square (Post) (cm) 9.02 -Area of Debridement (cm) - Length 4.1 -Area of Debridement (cm) - Width 2.2 -Total Square (Area) (cm) 9.02 -Tunneling No -Undermining/Tunneling No -Circular Undermining No -Wound/Ulcer Outcome Not Healed -Ulcer Cleansing Rinsed/ Irrigated with Saline -Foul Odor after Cleansing No -Bioengineered Tissue No -Bleeding Controlled with Pressure -Treatment Response Procedure Tolerated Well -Debridement - Subq, 1st 20sq cm Yes Pain Scale: 0-10 Numeric Is Patient Pain Free? Yes - Nurse 3 - General Ulcer D/C NN Start: 12/24/24 11:03 Freq: Status: Active Protocol: Activity Type Activity Date Activity User E-sign Co-sign Detail Recorded Client Recorded Date Recorded By Document 12/24/24 11:03 SEE [id number] 12/24/24 11:04 SEE 12/24/24 11:03 Is Patient Pain Free? Yes Wound Care Center Nurse 3 1-Left lateral leg -Ulcer Cleansing Soap and Water -Foul Odor after Cleansing No -Primary Dressing Applied Promogran -Primary Dressing Covered/Secured with Dry Gauze -Promogran 0 LLE -Multi-Layered Wrap Application Unna Boot - Left -Unna- Left (Qty applied) 1 - Visit Discharge Discharge Condition Stable Ambulatory Status Ambulatory Transportation Private Auto Medication Reconcilliation completed & No provided to patient/care provider Clinical Summary of Care Provided No Assessment/Plan Assessment/Plan (1) Ulcer of left lower extremity with fat layer exposed: CODE(S): L97.922 - Non-pressure chronic ulcer of unspecified part of left lower leg with fat layer exposed (2) Stasis dermatitis of both legs: CODE(S): I87.2 - Venous insufficiency (chronic) (peripheral) (3) Bilateral lower extremity edema: CODE(S): R60.0 - Localized edema PLAN: Plan Debridement done as documented above, procedure was well-tolerated. Some improvement noted, slow. EpiFix application still in progress. Continue Promogran, cover with Adaptic and foam dressing. Continue Unna boots due to concern for stasis dermatitis which did show some improvement compared to last week. Encourage leg elevation, exercise as tolerated. Optimize dietary/protein intake. Advised to call with any further questions or concerns. Follow-up in a week or sooner if needed. This note was generated with [employer] dictation software. It may contain incorrect words, spelling, and punctuation that were not noted in checking the note before signing.
[2024-12-31 10:15] VITALS: BP 112/71; PULSE 87; RESP 17; TEMP 36.2
[2025-01-03 09:51] VITALS: BP 114/85; PULSE 94; RESP 16; TEMP 36.8
--- NOTE | 2025-01-03 12:08 | PCM.WC.PN ---
History of Present Illness Date of Service: 01/03/25 Chief Complaint: Chronic Left Leg ULcer History of Wound: Ketty is a 74-year-old who was referred to the wound center due to nonhealing left leg ulcer. Ketty states this has been an ongoing issue since age 20 however current episode has been present since September. It was noted when he looked at his lower extremity with a mirror. No significant pain. Was seen by primary care who is also surgeon and had some interventions which did not yield any significant results so was subsequently referred to the wound center. Feels rather well. Reports a diet rich in protein. Questionable history of diabetes mellitus. No chills, fever or feeling of unwell. Progress of Wound: No acute concerns reported at this time. Now approved for EpiFix. Objective Data Objective Data Vital Signs: Vital Signs Temp Pulse Resp BP O2 Del Method 98.3 F 94 16 114/85 H Room Air 01/03/25 09:51 01/03/25 09:51 01/03/25 09:51 01/03/25 09:51 12/31/24 10:15 Oxygen Delivery Method Room Air Charges/Coding Procedures Integumentary 150xxx-152xx: 99175 Skin sub graft trnk/arm/leg Physical Exam Const alert, oriented x3 and no apparent distress General Appearance: cooperative, comfortable and well kempt HEENT normocephalic, head/scalp atraumatic and hearing grossly normal bilaterally Head and Scalp: normal to inspection and normocephalic Eyes EOMs intact bilaterally General Eye: normal appearance of both eyes Neck full ROM General: normal visual inspection Resp normal respiratory effort Effort and Inspection: able to speak in complete sentences Extremity General Extremity: edema Skin Wounds: wounds noted size Size: See clinical note, bed with slough, margins well approximated, no odor, open and surrounding erythema Neuro oriented x3, CN's II-XII intact bilaterally, moves all extremities and no focal motor deficits Psych mental status grossly normal, cooperative and affect normal Debridement Note Debridement Note Wound debrided: Left lower extremity (lateral) Type of Debridement: Excisional debridement Anesthesia Used: 5% Lidocaine Gel Depth: Down to and including healthy tissue and in the subcutaneous layer Percentage of wound debrided: 100 Instrument Used: 5mm curette Tissue Removed: Slough and devitalized tissue Severity: Fat Layer Exposed Amount of bleeding with debridement: Mild Bleeding Controlled with: Pressure Patient tolerated procedure: Patient tolerated procedure well Post-Debridement Measurements and Additional Note: Post-Debridement Measurements/Treatment WC - Nurse 1 - General Ulcer Assessment Start: 12/24/24 11:03 Freq: Status: Active Protocol: TANA Activity Type Activity Date Activity User E-sign Co-sign Detail Recorded Client Recorded Date Recorded By Document 12/24/24 11:03 JF [id number] 12/24/24 11:04 JF Document 12/27/24 10:10 RB [id number] 12/27/24 10:14 RB Document 12/31/24 10:15 TS [id number] 12/31/24 10:18 TS Document 01/03/25 09:51 JF [id number] 01/03/25 10:02 JF 12/24/24 12/27/24 12/31/24 11:03 10:10 10:15 - Today's Visit Information Type of service Nurse-only Follow-up Visit Nurse-only Visit (Physician/INSTANT POTATO PROCESSOR Visit ) Arrival Mode Ambulatory Ambulatory Ambulatory Transfer Assistance None Patient Identification Verified (Name & Yes Yes Yes ) Patient Requires Transmission-Based No No No Precautions Safety Precautions Fall Prevention Vital Signs Temperature (97.8 F-99.1 F) 97.1 F L 98.1 F 97.2 F L Temperature Source Temporal Temporal Temporal Pulse Rate (60-100) 87 97 87 Pulse Location Monitor Monitor Monitor Respiratory Rate (12-18) 16 18 17 Respiratory rate source Observation Observation Observation Oxygen Delivery Method Room Air Room Air Blood Pressure (90/60-120/80) 137/84 H 120/80 112/71 Blood Pressure Mean (mm Hg) 101 93 84 Source Monitor Monitor Position Semi-Fowlers Sitting Sitting Blood Pressure Location Right Arm Left Arm Left Arm History Since Last Visit- (Skip if this is Patient's initial visit) Have you changed medications since your No last visit? Any new allergies or adverse reactions No Had a fall/change in ADL's that may No increase risk of falls Signs or symptoms of abuse and/or No neglect since last visit Have you been in the hospital since your No last visit? Has dressing in place as prescribed Yes Has compression in place as prescribed Yes Has offloadiing in place as prescribed N/A Experienced any changes in pain level or No management Left Footwear Regular Shoe Regular Shoe Regular Shoe Right Footwear Regular Shoe Slipper Regular Shoe Pain Scale: 0-10 Numeric Is Patient Pain Free? Yes Yes Yes LLE -Description Aching -Intensity 1 -Duration (hours) Acute -Pain Behavior Irritability -Pain Aggravating Factors ADL's -Alleviating Factors/Interventions None 01/03/25 09:51 - Today's Visit Information Type of service Follow-up Visit (Physician/INSTANT POTATO PROCESSOR ) Arrival Mode Ambulatory Transfer Assistance Patient Identification Verified (Name & No ) Patient Requires Transmission-Based No Precautions Safety Precautions Vital Signs Temperature (97.8 F-99.1 F) 98.3 F Temperature Source Temporal Pulse Rate (60-100) 94 Pulse Location Monitor Respiratory Rate (12-18) 16 Respiratory rate source Observation Oxygen Delivery Method Blood Pressure (90/60-120/80) 114/85 H Blood Pressure Mean (mm Hg) 94 Source Monitor Position Semi-Fowlers Blood Pressure Location Right Arm History Since Last Visit- (Skip if this is Patient's initial visit) Have you changed medications since your Yes last visit? Any new allergies or adverse reactions No Had a fall/change in ADL's that may No increase risk of falls Signs or symptoms of abuse and/or No neglect since last visit Have you been in the hospital since your No last visit? Has dressing in place as prescribed Yes Has compression in place as prescribed Yes Has offloadiing in place as prescribed N/A Experienced any changes in pain level or No management Left Footwear Regular Shoe Right Footwear Regular Shoe Pain Scale: 0-10 Numeric Is Patient Pain Free? Yes LLE -Description -Intensity -Duration (hours) -Pain Behavior -Pain Aggravating Factors -Alleviating Factors/Interventions - Nurse 1 - General Ulcer Measurement Start: 12/24/24 11:03 Freq: Status: Active Protocol: Activity Type Activity Date Activity User E-sign Co-sign Detail Recorded Client Recorded Date Recorded By Document 12/24/24 11:03 SEE [id number] 12/24/24 11:04 JF Document 12/27/24 10:10 RB [id number] 12/27/24 10:14 RB Document 01/03/25 09:51 SEE [id number] 01/03/25 10:02 SEE 12/24/24 12/27/24 01/03/25 11:03 10:10 09:51 Wound Center Nurse 1 1-Left lateral leg -Combined with other wound No No -Current Size (cm) - Length 4.3 4.2 -Current Size (cm) - Width 2.4 2.2 -Current Size (cm) - Depth 0.2 0.2 -Total Square Cm 10.32 9.24 -Date of Last Picture (Recall this 12/27/24 field) -Photo Taken Yes Yes -Epithelialization Small 1-33% Medium 34-66% -Tunneling No No -Undermining/Tunneling No No -Circular Undermining No No -Exudate Amt Medium Small -Exudate Type Serosanguineous Serosanguineous -Wound Margin Thickened & Flat & Intact Rolled Under -Granulation Amt Large (67-100%) Medium (34-66%) -Granulation Quality [place] -Slough/Fibrin Yes Yes -Necrosis Amt Small (1-33%) Medium (34-66%) -Necrotic Tissue Type Adherent Slough Adherent Slough -Structure Exposed N/A N/A -Texture (Ashely-wound Skin Appearance) Assessed Assessed, Localized Edema -Moisture (Ashely-wound Skin Appearance) Assessed No Abnormality, Assessed,Dry/ Scaly -Color (Ashely-wound Skin Appearance) Hemosiderin Assessed Staining -Temperature (Ashely-wound Skin No Abnormality No Abnormality Appearance) (Pt Warm) (Pt Warm) -Tenderness on Palpation (Ashely-wound No No Skin Appearance) -Ulcer Cleansing Wound Cleanser Soap and Water -Foul Odor after Cleansing No No -Anesthetic Used 5% Lidocaine 4% Lidocaine Gel Solution Lower Limb Edema Present Yes Yes Yes Left Calf (cm) 39 38.6 38.5 Left Ankle (cm) 26 26.6 27.4 WC - Nurse 2 - General Ulcer CM Notes Start: 12/24/24 11:03 Freq: Status: Active Protocol: Activity Type Activity Date Activity User E-sign Co-sign Detail Recorded Client Recorded Date Recorded By Document 12/27/24 10:28 [id number] 12/27/24 10:29 Document 01/03/25 11:18 [id number] 01/03/25 11:23 12/27/24 01/03/25 10:28 11:18 Wound Center Nurse 2 1-Left lateral leg -Time 10:29 11:18 -Correct Patient Yes Yes -Correct Side, Site, Position Yes Yes -Correct Procedure Yes Yes -Procedure Performed Yes Yes -Type of Procedure Debridement Debridement -Clinical Debridement Subcutaneous Subcutaneous -Tissue Removed Subcutaneous Subcutaneous -Post Debridement (cm) - Length 4.1 4.0 -Post Debridement (cm) - Width 2.2 2.4 -Post Debridement (cm) - Depth 0.2 0.2 -Total Square (Post) (cm) 9.02 9.60 -Area of Debridement (cm) - Length 4.1 4.0 -Area of Debridement (cm) - Width 2.2 2.4 -Total Square (Area) (cm) 9.02 9.60 -Tunneling No No -Undermining/Tunneling No No -Circular Undermining No No -Wound/Ulcer Outcome Not Healed Not Healed -Ulcer Cleansing Rinsed/ Rinsed/ Irrigated with Irrigated with Saline Saline -Foul Odor after Cleansing No No -Bioengineered Tissue No Yes -Type of Bioengineered Tissue Epifix Mesh -Expiration Date 07/22/29 -Product Lot Number [id number] -Percent Used 100 -Lot number of Saline Used [id number] -Bleeding Controlled with Pressure Pressure -Treatment Response Procedure Procedure Tolerated Well Tolerated Well -Offloading No -Debridement - Subq, 1st 20sq cm Yes Yes -Apply Skin Sub - 1st 25 sq cm - Legs 1 -Epifix Mesh Application 1-4 (per sq 11 cm) Pain Scale: 0-10 Numeric Is Patient Pain Free? Yes Yes - Nurse 3 - General Ulcer D/C NN Start: 12/24/24 11:03 Freq: Status: Active Protocol: Activity Type Activity Date Activity User E-sign Co-sign Detail Recorded Client Recorded Date Recorded By Document 12/24/24 11:03 JF [id number] 12/24/24 11:04 JF Document 12/27/24 10:52 RB [id number] 12/27/24 10:55 RB Document 12/31/24 10:15 TS [id number] 12/31/24 10:18 TS Document 01/03/25 11:40 RB [id number] 01/03/25 11:41 RB 12/24/24 12/27/24 12/31/24 11:03 10:52 10:15 Pain Scale: 0-10 Numeric Is Patient Pain Free? Yes Yes Yes Wound Care Center Nurse 3 1-Left lateral leg -Ulcer Cleansing Soap and Water Rinsed/ Soap and Water Irrigated with Saline -Foul Odor after Cleansing No -Primary Dressing Applied Promogran Promogran Promogran -Primary Dressing Covered/Secured with Dry Gauze Dry Gauze & Roll Gauze -Aquacel Extra -Promogran 0 1 1 LLE -Lotion applied to leg before No compression wrap -Multi-Layered Wrap Application Unna Boot - Unna Boot - Unna Boot - Left Left Left -Unna- Left (Qty applied) 1 1 1 Treatment Response Procedure Procedure Tolerated Well Tolerated Well WC - Visit Discharge Discharge Condition Stable Stable Stable Ambulatory Status Ambulatory Ambulatory Ambulatory Transportation Private Auto Private Auto Private Auto Medication Reconcilliation completed & No No No provided to patient/care provider Clinical Summary of Care Provided No Yes No 01/03/25 11:40 Pain Scale: 0-10 Numeric Is Patient Pain Free? Yes Wound Care Center Nurse 3 1-Left lateral leg -Ulcer Cleansing Rinsed/ Irrigated with Saline -Foul Odor after Cleansing -Primary Dressing Applied Aquacel Extra -Primary Dressing Covered/Secured with Dry Gauze -Aquacel Extra 1 -Promogran LLE -Lotion applied to leg before compression wrap -Multi-Layered Wrap Application Unna Boot - Left -Unna- Left (Qty applied) 1 Treatment Response Procedure Tolerated Well WC - Visit Discharge Discharge Condition Stable Ambulatory Status Ambulatory Transportation Private Auto Medication Reconcilliation completed & No provided to patient/care provider Clinical Summary of Care Provided Yes Assessment/Plan Assessment/Plan (1) Ulcer of left lower extremity with fat layer exposed: CODE(S): L97.922 - Non-pressure chronic ulcer of unspecified part of left lower leg with fat layer exposed (2) Stasis dermatitis of both legs: CODE(S): I87.2 - Venous insufficiency (chronic) (peripheral) (3) Bilateral lower extremity edema: CODE(S): R60.0 - Localized edema PLAN: Plan Debridement done as documented above, procedure was well-tolerated. Initial application of EpiFix mesh using 100% of product done today. Moistened with saline, covered with Adaptic touch and secured with Steri-Strips. Aquacel extra over top. Continue Unna boots for edema management. Encourage leg elevation and exercise as tolerated. Optimize dietary/protein intake. Advised to call with any further questions or concerns. Follow-up in a week or sooner if needed. This note was generated with [employer] dictation software. It may contain incorrect words, spelling, and punctuation that were not noted in checking the note before signing.
--- NOTE | 2025-01-07 08:51 | WC ---
PHOTO-LEFT LATERAL LEG 01/03/25
[2025-01-10 10:13] VITALS: BP 130/78; PULSE 91; RESP 18; TEMP 36.4
--- NOTE | 2025-01-10 10:52 | PN.PCM_ITS ---
History of Present Illness Date of Service: 01/10/25 Chief Complaint: Chronic Left Leg ULcer History of Wound: Ketty is a 74-year-old who was referred to the wound center due to nonhealing left leg ulcer. Ketty states this has been an ongoing issue since age 20 however current episode has been present since September. It was noted when he looked at his lower extremity with a mirror. No significant pain. Was seen by primary care who is also surgeon and had some interventions which did not yield any significant results so was subsequently referred to the wound center. Feels rather well. Reports a diet rich in protein. Questionable history of diabetes mellitus. No chills, fever or feeling of unwell. Progress of Wound: No acute concerns reported at this time. Has had 1 application of EpiFix so far. Tolerated well. Objective Data Objective Data Vital Signs: Vital Signs Temp Pulse Resp BP O2 Del Method 97.5 F L 91 18 130/78 H Room Air 01/10/25 10:13 01/10/25 10:13 01/10/25 10:13 01/10/25 10:13 01/10/25 10:13 Oxygen Delivery Method Room Air Charges/Coding Procedures Integumentary 150xxx-152xx: 06161 Skin sub graft trnk/arm/leg Physical Exam Const alert, oriented x3 and no apparent distress General Appearance: cooperative, comfortable and well kempt HEENT normocephalic, head/scalp atraumatic and hearing grossly normal bilaterally Head and Scalp: normal to inspection and normocephalic Eyes EOMs intact bilaterally General Eye: normal appearance of both eyes Neck full ROM General: normal visual inspection Resp normal respiratory effort Effort and Inspection: able to speak in complete sentences Extremity General Extremity: edema Skin Wounds: wounds noted size Size: See clinical note, bed granulating well, margins well approximated, no odor, open and surrounding erythema Neuro oriented x3, CN's II-XII intact bilaterally, moves all extremities and no focal motor deficits Psych mental status grossly normal, cooperative and affect normal Debridement Note Debridement Note Wound debrided: Left lower extremity Type of Debridement: Excisional debridement Anesthesia Used: 5% Lidocaine Gel Depth: Down to and including healthy tissue and in the subcutaneous layer Percentage of wound debrided: 100 Instrument Used: 5mm curette Tissue Removed: Slough and devitalized tissue Severity: Fat Layer Exposed Amount of bleeding with debridement: Mild Bleeding Controlled with: Pressure Patient tolerated procedure: Patient tolerated procedure well Post-Debridement Measurements and Additional Note: Post-Debridement Measurements/Treatment WC - Nurse 1 - General Ulcer Assessment Start: 12/24/24 11:03 Freq: Status: Active Protocol: TANA Activity Type Activity Date Activity User E-sign Co-sign Detail Recorded Client Recorded Date Recorded By Document 12/24/24 11:03 JF [id number] 12/24/24 11:04 JF Document 12/27/24 10:10 RB [id number] 12/27/24 10:14 RB Document 12/31/24 10:15 TS [id number] 12/31/24 10:18 TS Document 01/03/25 09:51 JF [id number] 01/03/25 10:02 JF Document 01/10/25 10:13 RB [id number] 01/10/25 10:15 RB 12/24/24 12/27/24 12/31/24 11:03 10:10 10:15 - Today's Visit Information Type of service Nurse-only Follow-up Visit Nurse-only Visit (Physician/DIRECTOR CORPORATE SECURITY Visit ) Arrival Mode Ambulatory Ambulatory Ambulatory Transfer Assistance None Patient Identification Verified (Name & Yes Yes Yes ) Patient Requires Transmission-Based No No No Precautions Safety Precautions Fall Prevention Vital Signs Temperature (97.8 F-99.1 F) 97.1 F L 98.1 F 97.2 F L Temperature Source Temporal Temporal Temporal Pulse Rate (60-100) 87 97 87 Pulse Location Monitor Monitor Monitor Respiratory Rate (12-18) 16 18 17 Respiratory rate source Observation Observation Observation Oxygen Delivery Method Room Air Room Air Blood Pressure (90/60-120/80) 137/84 H 120/80 112/71 Blood Pressure Mean (mm Hg) 101 93 84 Source Monitor Monitor Position Semi-Fowlers Sitting Sitting Blood Pressure Location Right Arm Left Arm Left Arm History Since Last Visit- (Skip if this is Patient's initial visit) Have you changed medications since your No last visit? Any new allergies or adverse reactions No Had a fall/change in ADL's that may No increase risk of falls Signs or symptoms of abuse and/or No neglect since last visit Have you been in the hospital since your No last visit? Has dressing in place as prescribed Yes Has compression in place as prescribed Yes Has offloadiing in place as prescribed N/A Experienced any changes in pain level or No management Left Footwear Regular Shoe Regular Shoe Regular Shoe Right Footwear Regular Shoe Slipper Regular Shoe Pain Scale: 0-10 Numeric Is Patient Pain Free? Yes Yes Yes LLE -Description Aching -Intensity 1 -Duration (hours) Acute -Pain Behavior Irritability -Pain Aggravating Factors ADL's -Alleviating Factors/Interventions None 01/03/25 01/10/25 09:51 10:13 WC - Today's Visit Information Type of service Follow-up Visit Follow-up Visit (Physician/DIRECTOR CORPORATE SECURITY (Physician/DIRECTOR CORPORATE SECURITY ) ) Arrival Mode Ambulatory Ambulatory Transfer Assistance None Patient Identification Verified (Name & No Yes ) Patient Requires Transmission-Based No No Precautions Safety Precautions Vital Signs Temperature (97.8 F-99.1 F) 98.3 F 97.5 F L Temperature Source Temporal Temporal Pulse Rate (60-100) 94 91 Pulse Location Monitor Monitor Respiratory Rate (12-18) 16 18 Respiratory rate source Observation Observation Oxygen Delivery Method Room Air Blood Pressure (90/60-120/80) 114/85 H 130/78 H Blood Pressure Mean (mm Hg) 94 95 Source Monitor Monitor Position Semi-Fowlers Semi-Fowlers Blood Pressure Location Right Arm Left Arm History Since Last Visit- (Skip if this is Patient's initial visit) Have you changed medications since your Yes No last visit? Any new allergies or adverse reactions No No Had a fall/change in ADL's that may No No increase risk of falls Signs or symptoms of abuse and/or No No neglect since last visit Have you been in the hospital since your No No last visit? Has dressing in place as prescribed Yes Yes Has compression in place as prescribed Yes Yes Has offloadiing in place as prescribed N/A N/A Experienced any changes in pain level or No No management Left Footwear Regular Shoe Regular Shoe Right Footwear Regular Shoe Regular Shoe Pain Scale: 0-10 Numeric Is Patient Pain Free? Yes Yes LLE -Description -Intensity -Duration (hours) -Pain Behavior -Pain Aggravating Factors -Alleviating Factors/Interventions PRAMOD - Nurse 1 - General Ulcer Measurement Start: 12/24/24 11:03 Freq: Status: Active Protocol: Activity Type Activity Date Activity User E-sign Co-sign Detail Recorded Client Recorded Date Recorded By Document 12/24/24 11:03 SEE [id number] 12/24/24 11:04 JF Document 12/27/24 10:10 RB [id number] 12/27/24 10:14 RB Document 01/03/25 09:51 JF [id number] 01/03/25 10:02 JF Document 01/10/25 10:13 RB [id number] 01/10/25 10:15 RB 12/24/24 12/27/24 01/03/25 11:03 10:10 09:51 Wound Center Nurse 1 1-Left lateral leg -Combined with other wound No No -Current Size (cm) - Length 4.3 4.2 -Current Size (cm) - Width 2.4 2.2 -Current Size (cm) - Depth 0.2 0.2 -Total Square Cm 10.32 9.24 -Date of Last Picture (Recall this 12/27/24 field) -Photo Taken Yes Yes -Epithelialization Small 1-33% Medium 34-66% -Tunneling No No -Undermining/Tunneling No No -Circular Undermining No No -Exudate Amt Medium Small -Exudate Type Serosanguineous Serosanguineous -Wound Margin Thickened & Flat & Intact Rolled Under -Granulation Amt Large (67-100%) Medium (34-66%) -Granulation Quality Onsted Onsted -Slough/Fibrin Yes Yes -Necrosis Amt Small (1-33%) Medium (34-66%) -Necrotic Tissue Type Adherent Slough Adherent Slough -Structure Exposed N/A N/A -Texture (Ashely-wound Skin Appearance) Assessed Assessed, Localized Edema -Moisture (Ashely-wound Skin Appearance) Assessed No Abnormality, Assessed,Dry/ Scaly -Color (Asheyl-wound Skin Appearance) Hemosiderin Assessed Staining -Temperature (Ashely-wound Skin No Abnormality No Abnormality Appearance) (Pt Warm) (Pt Warm) -Tenderness on Palpation (Ashely-wound No No Skin Appearance) -Ulcer Cleansing Wound Cleanser Soap and Water -Foul Odor after Cleansing No No -Anesthetic Used 5% Lidocaine 4% Lidocaine Gel Solution Lower Limb Edema Present Yes Yes Yes Left Calf (cm) 39 38.6 38.5 Left Ankle (cm) 26 26.6 27.4 01/10/25 10:13 Wound Center Nurse 1 1-Left lateral leg -Combined with other wound No -Current Size (cm) - Length 3.9 -Current Size (cm) - Width 2.3 -Current Size (cm) - Depth 0.2 -Total Square Cm 8.97 -Date of Last Picture (Recall this 01/10/25 field) -Photo Taken Yes -Epithelialization -Tunneling No -Undermining/Tunneling No -Circular Undermining No -Exudate Amt Medium -Exudate Type Serosanguineous -Wound Margin Thickened & Rolled Under -Granulation Amt Medium (34-66%) -Granulation Quality Onsted -Slough/Fibrin Yes -Necrosis Amt Medium (34-66%) -Necrotic Tissue Type Adherent Slough -Structure Exposed N/A -Texture (Ashely-wound Skin Appearance) Assessed -Moisture (Ashely-wound Skin Appearance) Dry/Scaly -Color (Ashely-wound Skin Appearance) Erythema -Temperature (Ashely-wound Skin No Abnormality Appearance) (Pt Warm) -Tenderness on Palpation (Ashely-wound No Skin Appearance) -Ulcer Cleansing Wound Cleanser -Foul Odor after Cleansing No -Anesthetic Used 5% Lidocaine Gel Lower Limb Edema Present Yes Left Calf (cm) 39.1 Left Ankle (cm) 26.2 WC - Nurse 2 - General Ulcer CM Notes Start: 12/24/24 11:03 Freq: Status: Active Protocol: Activity Type Activity Date Activity User E-sign Co-sign Detail Recorded Client Recorded Date Recorded By Document 12/27/24 10:28 [id number] 12/27/24 10:29 Document 01/03/25 11:18 [id number] 01/03/25 11:23 Document 01/10/25 10:29 [id number] 01/10/25 10:33 12/27/24 01/03/25 01/10/25 10:28 11:18 10:29 Wound Center Nurse 2 1-Left lateral leg -Time 10: 11:18 10:30 -Correct Patient Yes Yes Yes -Correct Side, Site, Position Yes Yes Yes -Correct Procedure Yes Yes Yes -Procedure Performed Yes Yes Yes -Type of Procedure Debridement Debridement Debridement -Clinical Debridement Subcutaneous Subcutaneous Subcutaneous -Tissue Removed Subcutaneous Subcutaneous Subcutaneous -Post Debridement (cm) - Length 4.1 4.0 4.0 -Post Debridement (cm) - Width 2.2 2.4 2.2 -Post Debridement (cm) - Depth 0.2 0.2 0.2 -Total Square (Post) (cm) 9.02 9.60 8.80 -Area of Debridement (cm) - Length 4.1 4.0 1.0 -Area of Debridement (cm) - Width 2.2 2.4 2.2 -Total Square (Area) (cm) 9.02 9.60 2.20 -Tunneling No No No -Undermining/Tunneling No No No -Circular Undermining No No No -Wound/Ulcer Outcome Not Healed Not Healed Not Healed -Ulcer Cleansing Rinsed/ Rinsed/ Rinsed/ Irrigated with Irrigated with Irrigated with Saline Saline Saline -Foul Odor after Cleansing No No No -Bioengineered Tissue No Yes Yes -Type of Bioengineered Tissue Epifix Mesh Epifix -Expiration Date 07/22/29 04/21/29 -Product Lot Number [id number] -Percent Used 100 100 -Lot number of Saline Used [id number] -Bleeding Controlled with Pressure Pressure Pressure -Treatment Response Procedure Procedure Procedure Tolerated Well Tolerated Well Tolerated Well -Offloading No No -Debridement - Subq, 1st 20sq cm Yes Yes Yes -Apply Skin Sub - 1st 25 sq cm - Legs 1 1 -Epifix Application 1-4 (per sq cm) 4 -Epifix Mesh Application 1-4 (per sq 11 cm) Pain Scale: 0-10 Numeric Is Patient Pain Free? Yes Yes Yes WC - Nurse 3 - General Ulcer D/C NN Start: 12/24/24 11:03 Freq: Status: Active Protocol: Activity Type Activity Date Activity User E-sign Co-sign Detail Recorded Client Recorded Date Recorded By Document 12/24/24 11:03 JF [id number] 12/24/24 11:04 JF Document 12/27/24 10:52 RB [id number] 12/27/24 10:55 RB Document 12/31/24 10:15 TS [id number] 12/31/24 10:18 TS Document 01/03/25 11:40 RB [id number] 01/03/25 11:41 RB Document 01/10/25 10:50 TS [id number] 01/10/25 10:51 TS 12/24/24 12/27/24 12/31/24 11:03 10:52 10:15 Pain Scale: 0-10 Numeric Is Patient Pain Free? Yes Yes Yes Wound Care Center Nurse 3 1-Left lateral leg -Ulcer Cleansing Soap and Water Rinsed/ Soap and Water Irrigated with Saline -Foul Odor after Cleansing No -Primary Dressing Applied Promogran Promogran Promogran -Primary Dressing Covered/Secured with Dry Gauze Dry Gauze & Roll Gauze -Aquacel Extra -Promogran 0 1 1 LLE -Lotion applied to leg before No compression wrap -Multi-Layered Wrap Application Unna Boot - Unna Boot - Unna Boot - Left Left Left -Unna- Left (Qty applied) 1 1 1 Treatment Response Procedure Procedure Tolerated Well Tolerated Well WC - Visit Discharge Discharge Condition Stable Stable Stable Ambulatory Status Ambulatory Ambulatory Ambulatory Transportation [employer] [facility] [place] Funding Options Auto Medication Reconcilliation completed & No No No provided to patient/care provider Clinical Summary of Care Provided No Yes No 01/03/25 01/10/25 11:40 10:50 Pain Scale: 0-10 Numeric Is Patient Pain Free? Yes Yes Wound Care Center Nurse 3 1-Left lateral leg -Ulcer Cleansing Rinsed/ Irrigated with Saline -Foul Odor after Cleansing -Primary Dressing Applied Aquacel Extra Aquacel Extra -Primary Dressing Covered/Secured with Dry Gauze -Aquacel Extra 1 1 -Promogran LLE -Lotion applied to leg before No compression wrap -Multi-Layered Wrap Application Unna Boot - Unna Boot - Left Left -Unna- Left (Qty applied) 1 1 Treatment Response Procedure Tolerated Well WC - Visit Discharge Discharge Condition Stable Stable Ambulatory Status Ambulatory Ambulatory Transportation Private [employer] Auto Medication Reconcilliation completed & No No provided to patient/care provider Clinical Summary of Care Provided Yes Yes Assessment/Plan Assessment/Plan (1) Ulcer of left lower extremity with fat layer exposed: CODE(S): L97.922 - Non-pressure chronic ulcer of unspecified part of left lower leg with fat layer exposed (2) Stasis dermatitis of both legs: CODE(S): I87.2 - Venous insufficiency (chronic) (peripheral) (3) Bilateral lower extremity edema: CODE(S): R60.0 - Localized edema PLAN: Plan Debridement done as documented above, procedure was well-tolerated. 2nd application of EpiFix using 100% of product done today. Moistened with saline, covered with wound veil and secured with Steri-Strips. Promogran also placed over area. Continue Unna boots for edema management. Encourage leg elevation and exercise as tolerated. Optimize dietary/protein intake. Advised to call with any further questions or concerns. Follow-up on Tuesday for Unna boot change and for courtesy visit and in 2 weeks with me. This note was generated with [employer] dictation software. It may contain incorrect words, spelling, and punctuation that were not noted in checking the note before signing.
--- NOTE | 2025-01-11 08:50 | WC ---
PHOTO-LEFT LATERAL LEG 01/10/25
[2025-01-16 10:09] VITALS: BP 88/53; PULSE 84; RESP 16; TEMP 35.9
--- NOTE | 2025-01-16 11:15 | PN.PCM_ITS ---
History of Present Illness Date of Service: 01/16/25 Chief Complaint: Chronic Left Leg ULcer History of Wound: Ketty is a 74-year-old who was referred to the wound center due to nonhealing left leg ulcer. Ketty states this has been an ongoing issue since age 20 however current episode has been present since September. It was noted when he looked at his lower extremity with a mirror. No significant pain. Was seen by primary care who is also surgeon and had some interventions which did not yield any significant results so was subsequently referred to the wound center. Feels rather well. Reports a diet rich in protein. Questionable history of diabetes mellitus. No chills, fever or feeling of unwell. Progress of Wound: No acute concerns reported at this time. Has had 1 application of EpiFix so far. Tolerated well. This is a courtesy visit ,no concerns EpiFix #3 applied today tolerated well still has depth well-demarcated edges no sign of infection. Will cover with an Aquacel and apply double layer Tubigrip to his leg Subjective Subjective Patient is agreeable to plan and is doing well he says his leg is never looked this good. Objective Data Objective Data Open wound on the lateral side of his left ankle. Appears to be a chronic problem we will continue to use EpiFix #3 on today with no issues covering it with a veil and Aquacel extra on top of that with the regular dressing and double layer Tubigrip's Vital Signs: Vital Signs Temp Pulse Resp BP O2 Del Method 96.6 F L 84 16 88/53 L Room Air 01/16/25 10:09 01/16/25 10:09 01/16/25 10:09 01/16/25 10:09 01/16/25 10:09 Oxygen Delivery Method Room Air Lab / Micro Data Lab results narrative: No labs to go over Physical Exam Const alert, oriented x3 and no apparent distress General Appearance: cooperative, comfortable and well kempt HEENT normocephalic, head/scalp atraumatic and hearing grossly normal bilaterally Head and Scalp: normal to inspection and normocephalic Eyes EOMs intact bilaterally General Eye: normal appearance of both eyes Neck full ROM General: normal visual inspection Resp normal respiratory effort Effort and Inspection: able to speak in complete sentences Extremity General Extremity: edema Skin Wounds: wounds noted size Size: See clinical note, bed granulating well, margins well approximated, no odor, open and surrounding erythema Neuro oriented x3, CN's II-XII intact bilaterally, moves all extremities and no focal motor deficits Psych mental status grossly normal, cooperative and affect normal Debridement Note Debridement Note Wound debrided: Left lower extremity Type of Debridement: Excisional debridement Anesthesia Used: 5% Lidocaine Gel Depth: Down to and including healthy tissue and in the subcutaneous layer Percentage of wound debrided: 100 Instrument Used: 5mm curette Tissue Removed: Fibrin Severity: Fat Layer Exposed Amount of bleeding with debridement: Mild Bleeding Controlled with: Pressure Patient tolerated procedure: Patient tolerated procedure well Post-Debridement Measurements and Additional Note: Post-Debridement Measurements/Treatment - Nurse 1 - General Ulcer Assessment Start: 12/24/24 11:03 Freq: Status: Active Protocol: TANA Activity Type Activity Date Activity User E-sign Co-sign Detail Recorded Client Recorded Date Recorded By Document 12/24/24 11:03 JF [id number] 12/24/24 11:04 JF Document 12/27/24 10:10 RB [id number] 12/27/24 10:14 RB Document 12/31/24 10:15 TS [id number] 12/31/24 10:18 TS Document 01/03/25 09:51 JF [id number] 01/03/25 10:02 JF Document 01/10/25 10:13 RB [id number] 01/10/25 10:15 RB Document 01/16/25 10:09 TS [id number] 01/16/25 10:10 TS 12/24/24 12/27/24 12/31/24 11:03 10:10 10:15 - Today's Visit Information Type of service Nurse-only Follow-up Visit Nurse-only Visit (Physician/GLASS BLOWING INSTRUCTOR Visit ) Arrival Mode Ambulatory Ambulatory Ambulatory Transfer Assistance None Patient Identification Verified (Name & Yes Yes Yes ) Patient Requires Transmission-Based No No No Precautions Safety Precautions Fall Prevention Vital Signs Temperature (97.8 F-99.1 F) 97.1 F L 98.1 F 97.2 F L Temperature Source Temporal Temporal Temporal Pulse Rate (60-100) 87 97 87 Pulse Location Monitor Monitor Monitor Respiratory Rate (12-18) 16 18 17 Respiratory rate source Observation Observation Observation Oxygen Delivery Method Room Air Room Air Blood Pressure (90/60-120/80) 137/84 H 120/80 112/71 Blood Pressure Mean (mm Hg) 101 93 84 Source Monitor Monitor Position Semi-Fowlers Sitting Sitting Blood Pressure Location Right Arm Left Arm Left Arm History Since Last Visit- (Skip if this is Patient's initial visit) Have you changed medications since your No last visit? Any new allergies or adverse reactions No Had a fall/change in ADL's that may No increase risk of falls Signs or symptoms of abuse and/or No neglect since last visit Have you been in the hospital since your No last visit? Has dressing in place as prescribed Yes Has compression in place as prescribed Yes Has offloadiing in place as prescribed N/A Experienced any changes in pain level or No management Left Footwear Regular Shoe Regular Shoe Regular Shoe Right Footwear Regular Shoe Slipper Regular Shoe Pain Scale: 0-10 Numeric Is Patient Pain Free? Yes Yes Yes LLE -Description Aching -Intensity 1 -Duration (hours) Acute -Pain Behavior Irritability -Pain Aggravating Factors ADL's -Alleviating Factors/Interventions None 01/03/25 01/10/25 01/16/25 09:51 10:13 10:09 WC - Today's Visit Information Type of service Follow-up Visit Follow-up Visit Follow-up Visit (Physician/GLASS BLOWING INSTRUCTOR (Physician/GLASS BLOWING INSTRUCTOR (Physician/GLASS BLOWING INSTRUCTOR ) ) ) Arrival Mode Ambulatory Ambulatory Ambulatory Transfer Assistance None Patient Identification Verified (Name & No Yes Yes ) Patient Requires Transmission-Based No No No Precautions Safety Precautions Fall Prevention Vital Signs Temperature (97.8 F-99.1 F) 98.3 F 97.5 F L 96.6 F L Temperature Source Temporal Temporal Temporal Pulse Rate (60-100) 94 91 84 Pulse Location Monitor Monitor Monitor Respiratory Rate (12-18) 16 18 16 Respiratory rate source Observation Observation Observation Oxygen Delivery Method Room Air Room Air Blood Pressure (90/60-120/80) 114/85 H 130/78 H 88/53 L Blood Pressure Mean (mm Hg) 94 95 64 Source Monitor Monitor Monitor Position Semi-Fowlers Semi-Fowlers Standing Blood Pressure Location Right Arm Left Arm Left Arm History Since Last Visit- (Skip if this is Patient's initial visit) Have you changed medications since your Yes No No last visit? Any new allergies or adverse reactions No No No Had a fall/change in ADL's that may No No No increase risk of falls Signs or symptoms of abuse and/or No No neglect since last visit Have you been in the hospital since your No No last visit? Has dressing in place as prescribed Yes Yes Yes Has compression in place as prescribed Yes Yes Yes Has offloadiing in place as prescribed N/A N/A N/A Experienced any changes in pain level or No No No management Left Footwear Regular Shoe Regular Shoe Regular Shoe Right Footwear Regular Shoe Regular Shoe Regular Shoe Pain Scale: 0-10 Numeric Is Patient Pain Free? Yes Yes Yes LLE -Description -Intensity -Duration (hours) -Pain Behavior -Pain Aggravating Factors -Alleviating Factors/Interventions WC - Nurse 1 - General Ulcer Measurement Start: 12/24/24 11:03 Freq: Status: Active Protocol: Activity Type Activity Date Activity User E-sign Co-sign Detail Recorded Client Recorded Date Recorded By Document 12/24/24 11:03 JF [id number] 12/24/24 11:04 JF Document 12/27/24 10:10 RB [id number] 12/27/24 10:14 RB Document 01/03/25 09:51 JF [id number] 01/03/25 10:02 JF Document 01/10/25 10:13 RB [id number] 01/10/25 10:15 RB Document 01/16/25 10:09 TS [id number] 01/16/25 10:10 TS 12/24/24 12/27/24 01/03/25 11:03 10:10 09:51 Wound Center Nurse 1 1-Left lateral leg -Combined with other wound No No -Current Size (cm) - Length 4.3 4.2 -Current Size (cm) - Width 2.4 2.2 -Current Size (cm) - Depth 0.2 0.2 -Total Square Cm 10.32 9.24 -Date of Last Picture (Recall this 12/27/24 field) -Photo Taken Yes Yes -Epithelialization Small 1-33% Medium 34-66% -Tunneling No No -Undermining/Tunneling No No -Circular Undermining No No -Exudate Amt Medium Small -Exudate Type Serosanguineous Serosanguineous -Wound Margin Thickened & Flat & Intact Rolled Under -Granulation Amt Large (67-100%) Medium (34-66%) -Granulation Quality [place] Pen[place]el -Slough/Fibrin Yes Yes -Necrosis Amt Small (1-33%) Medium (34-66%) -Necrotic Tissue Type Adherent Slough Adherent Slough -Structure Exposed N/A N/A -Texture (Ashely-wound Skin Appearance) Assessed Assessed, Localized Edema -Moisture (Ashely-wound Skin Appearance) Assessed No Abnormality, Assessed,Dry/ Scaly -Color (Ashely-wound Skin Appearance) Hemosiderin Assessed Staining -Temperature (Ashely-wound Skin No Abnormality No Abnormality Appearance) (Pt Warm) (Pt Warm) -Tenderness on Palpation (Ashely-wound No No Skin Appearance) -Ulcer Cleansing Wound Cleanser Soap and Water -Foul Odor after Cleansing No No -Anesthetic Used 5% Lidocaine 4% Lidocaine Gel Solution Lower Limb Edema Present Yes Yes Yes Left Calf (cm) 39 38.6 38.5 Point of measurement (cm from the medial instep) Left Ankle (cm) 26 26.6 27.4 Point of Measurement (cm from the medial instep) 01/10/25 01/16/25 10:13 10:09 Wound Center Nurse 1 1-Left lateral leg -Combined with other wound No No -Current Size (cm) - Length 3.9 4 -Current Size (cm) - Width 2.3 2 -Current Size (cm) - Depth 0.2 0.2 -Total Square Cm 8.97 8 -Date of Last Picture (Recall this 01/10/25 01/16/25 field) -Photo Taken Yes Yes -Epithelialization -Tunneling No -Undermining/Tunneling No -Circular Undermining No -Exudate Amt Medium Medium -Exudate Type Serosanguineous Serosanguineous -Wound Margin Thickened & Distinct, Rolled Under Outline Attached -Granulation Amt Medium (34-66%) -Granulation Quality [place],Red -Slough/Fibrin Yes -Necrosis Amt Medium (34-66%) Medium (34-66%) -Necrotic Tissue Type Adherent Slough Adherent Slough -Structure Exposed N/A None/Limited to Skin Breakdown -Texture (Ashely-wound Skin Appearance) Assessed Assessed -Moisture (Ashely-wound Skin Appearance) Dry/Scaly Assessed -Color (Ashely-wound Skin Appearance) Erythema Assessed -Temperature (Ashely-wound Skin No Abnormality No Abnormality Appearance) (Pt Warm) (Pt Warm) -Tenderness on Palpation (Ashely-wound No Skin Appearance) -Ulcer Cleansing Wound Cleanser Soap and Water -Foul Odor after Cleansing No No -Anesthetic Used 5% Lidocaine 5% Lidocaine Gel Gel Lower Limb Edema Present Yes No Left Calf (cm) 39.1 Point of measurement (cm from the medial 38.5 instep) Left Ankle (cm) 26.2 Point of Measurement (cm from the medial 29 instep) WC - Nurse 2 - General Ulcer CM Notes Start: 12/24/24 11:03 Freq: Status: Active Protocol: Activity Type Activity Date Activity User E-sign Co-sign Detail Recorded Client Recorded Date Recorded By Document 12/27/24 10:28 [id number] 12/27/24 10:29 Document 01/03/25 11:18 [id number] 01/03/25 11:23 Document 01/10/25 10:29 [id number] 01/10/25 10:33 Document 01/16/25 10:22 [id number] 01/16/25 10:27 GM 12/27/24 01/03/25 01/10/25 10:28 11:18 10:29 Wound Center Nurse 2 1-Left lateral leg -Time 10:29 11:18 10:30 -Correct Patient Yes Yes Yes -Correct Side, Site, Position Yes Yes Yes -Correct Procedure Yes Yes Yes -Procedure Performed Yes Yes Yes -Type of Procedure Debridement Debridement Debridement -Clinical Debridement Subcutaneous Subcutaneous Subcutaneous -Tissue Removed Subcutaneous Subcutaneous Subcutaneous -Post Debridement (cm) - Length 4.1 4.0 4.0 -Post Debridement (cm) - Width 2.2 2.4 2.2 -Post Debridement (cm) - Depth 0.2 0.2 0.2 -Total Square (Post) (cm) 9.02 9.60 8.80 -Area of Debridement (cm) - Length 4.1 4.0 1.0 -Area of Debridement (cm) - Width 2.2 2.4 2.2 -Total Square (Area) (cm) 9.02 9.60 2.20 -Tunneling No No No -Undermining/Tunneling No No No -Circular Undermining No No No -Wound/Ulcer Outcome Not Healed Not Healed Not Healed -Ulcer Cleansing Rinsed/ Rinsed/ Rinsed/ Irrigated with Irrigated with Irrigated with Saline Saline Saline -Foul Odor after Cleansing No No No -Bioengineered Tissue No Yes Yes -Type of Bioengineered Tissue Epifix Mesh Epifix -Expiration Date 07/22/29 04/21/29 -Product Lot Number [id number] -Percent Used 100 100 -Lot number of Saline Used [id number] -Bleeding Controlled with Pressure Pressure Pressure -Treatment Response Procedure Procedure Procedure Tolerated Well Tolerated Well Tolerated Well -Offloading No No -Debridement - Subq, 1st 20sq cm Yes Yes Yes -Apply Skin Sub - 1st 25 sq cm - Legs 1 1 -Epifix Application 1-4 (per sq cm) 4 -Epifix Mesh Application 1-4 (per sq 11 cm) Pain Scale: 0-10 Numeric Is Patient Pain Free? Yes Yes Yes 01/16/25 10:22 Wound Center Nurse 2 1-Left lateral leg -Time 10:23 -Correct Patient Yes -Correct Side, Site, Position Yes -Correct Procedure Yes -Procedure Performed Yes -Type of Procedure Debridement -Clinical Debridement Subcutaneous -Tissue Removed Subcutaneous -Post Debridement (cm) - Length 4.1 -Post Debridement (cm) - Width 2.2 -Post Debridement (cm) - Depth 0.3 -Total Square (Post) (cm) 9.02 -Area of Debridement (cm) - Length 4.1 -Area of Debridement (cm) - Width 2.2 -Total Square (Area) (cm) 9.02 -Tunneling No -Undermining/Tunneling No -Circular Undermining No -Wound/Ulcer Outcome Not Healed -Ulcer Cleansing Rinsed/ Irrigated with Saline -Foul Odor after Cleansing No -Bioengineered Tissue Yes -Type of Bioengineered Tissue Epifix Mesh -Expiration Date 04/21/29 -Product Lot Number [id number] -Percent Used 100 -Lot number of Saline Used [id number] -Bleeding Controlled with Pressure -Treatment Response Procedure Tolerated Well -Offloading No -Debridement - Subq, 1st 20sq cm Yes -Apply Skin Sub - 1st 25 sq cm - Legs -Epifix Application 1-4 (per sq cm) -Epifix Mesh Application 1-4 (per sq cm) Pain Scale: 0-10 Numeric Is Patient Pain Free? Yes WC - Nurse 3 - General Ulcer D/C NN Start: 12/24/24 11:03 Freq: Status: Active Protocol: Activity Type Activity Date Activity User E-sign Co-sign Detail Recorded Client Recorded Date Recorded By Document 12/24/24 11:03 JF [id number] 12/24/24 11:04 JF Document 12/27/24 10:52 RB [id number] 12/27/24 10:55 RB Document 12/31/24 10:15 TS [id number] 12/31/24 10:18 TS Document 01/03/25 11:40 RB [id number] 01/03/25 11:41 RB Document 01/10/25 10:50 TS [id number] 01/10/25 10:51 TS Document 01/16/25 10:57 TS [id number] 01/16/25 10:58 TS 12/24/24 12/27/24 12/31/24 11:03 10:52 10:15 Pain Scale: 0-10 Numeric Is Patient Pain Free? Yes Yes Yes Wound Care Center Nurse 3 1-Left lateral leg -Ulcer Cleansing Soap and Water Rinsed/ Soap and Water Irrigated with Saline -Foul Odor after Cleansing No -Primary Dressing Applied Promogran Promogran Promogran -Other Dressing -Primary Dressing Covered/Secured with Dry Gauze Dry Gauze & Roll Gauze -Aquacel Extra -Promogran 0 1 1 LLE -Lotion applied to leg before No compression wrap -Multi-Layered Wrap Application Unna Boot - Unna Boot - Unna Boot - Left Left Left -Tubular Bandage -Size of Tubigrip Used -Size D ($) -Unna- Left (Qty applied) 1 1 1 Treatment Response Procedure Procedure Tolerated Well Tolerated Well WC - Visit Discharge Discharge Condition Stable Stable Stable Ambulatory Status Ambulatory Ambulatory Ambulatory Transportation Private Auto Private Auto Private Auto Medication Reconcilliation completed & No No No provided to patient/care provider Clinical Summary of Care Provided No Yes No 01/03/25 01/10/25 01/16/25 11:40 10:50 10:57 Pain Scale: 0-10 Numeric Is Patient Pain Free? Yes Yes Yes Wound Care Center Nurse 3 1-Left lateral leg -Ulcer Cleansing Rinsed/ Irrigated with Saline -Foul Odor after Cleansing -Primary Dressing Applied Aquacel Extra Aquacel Extra Aquacel Extra -Other Dressing abd pad -Primary Dressing Covered/Secured with Dry Gauze Secured with Tape -Aquacel Extra 1 1 1 -Promogran LLE -Lotion applied to leg before No No compression wrap -Multi-Layered Wrap Application Unna Boot - Unna Boot - Left Left -Tubular Bandage Double Layer -Size of Tubigrip Used Size D -Size D ($) 2 -Unna- Left (Qty applied) 1 1 Treatment Response Procedure Tolerated Well WC - Visit Discharge Discharge Condition Stable Stable Stable Ambulatory Status Ambulatory Ambulatory Ambulatory Transportation Private Auto Private Auto Private Auto Medication Reconcilliation completed & No No No provided to patient/care provider Clinical Summary of Care Provided Yes Yes Yes Assessment/Plan Assessment/Plan (1) Ulcer of left lower extremity with fat layer exposed: CODE(S): L97.922 - Non-pressure chronic ulcer of unspecified part of left lower leg with fat layer exposed PLAN: 3. EpiFix applied to wound base of wound covered with veil and Steri- Strips and then we applied Aquacel extra over the graft site with a dry dressing And proceeded a double layer Tubigrip to the area patient was still instructed not to shower or get the dressing wet and follow-up in 1 week (2) Stasis dermatitis of both legs: CODE(S): I87.2 - Venous insufficiency (chronic) (peripheral) (3) Bilateral lower extremity edema: CODE(S): R60.0 - Localized edema
--- NOTE | 2025-01-21 09:18 | WC ---
PHOTO-LEFT LAT LEG 01/16/25
== END 2025-01-20 23:59 | disposition home or self-care (01) ==
LOC: WC 09:45
PROVIDERS: PCP Internal Medicine; Referring Provider Internal Medicine; Visit Provider Internal Medicine
DX: L97.922 Non-pressure chronic ulcer of unspecified part of left lower leg with fat layer exposed (principal); I87.2 Venous insufficiency (chronic) (peripheral); R60.0 Localized edema
CPT/HCPCS: 11042; 15271; 29580; Q4186

== ENCOUNTER 2025-02-19 10:15 | Outpatient (RCR) | payer MEDICARE, SELFPAY ==
[2025-01-24 09:52] VITALS: BP 119/86; PULSE 113; RESP 18; TEMP 36.6
--- NOTE | 2025-01-24 11:52 | PCM.WC.PN ---
History of Present Illness Date of Service: 01/24/25 Chief Complaint: Chronic Left Leg ULcer History of Wound: Ketty is a 74-year-old who was referred to the wound center due to nonhealing left leg ulcer. Ketty states this has been an ongoing issue since age 20 however current episode has been present since September. It was noted when he looked at his lower extremity with a mirror. No significant pain. Was seen by primary care who is also surgeon and had some interventions which did not yield any significant results so was subsequently referred to the wound center. Feels rather well. Reports a diet rich in protein. Questionable history of diabetes mellitus. No chills, fever or feeling of unwell. Progress of Wound: Some improvement noted in ulceration however, concern for ASHELY ulcer cellulitis/irritation. Reports increased pain around the surrounding skin, skin breakdown also appreciated. Objective Data Objective Data Vital Signs: Vital Signs Temp Pulse Resp BP O2 Del Method 97.8 F 113 H 18 119/86 H Room Air 01/24/25 09:52 01/24/25 09:52 01/24/25 09:52 01/24/25 09:52 01/24/25 09:52 Oxygen Delivery Method Room Air Charges/Coding Procedures Integumentary 150xxx-152xx: 40438 Skin sub graft trnk/arm/leg Physical Exam Const alert, oriented x3 and no apparent distress General Appearance: cooperative, comfortable and well kempt HEENT normocephalic, head/scalp atraumatic and hearing grossly normal bilaterally Head and Scalp: normal to inspection and normocephalic Eyes EOMs intact bilaterally General Eye: normal appearance of both eyes Neck full ROM General: normal visual inspection Resp normal respiratory effort Effort and Inspection: able to speak in complete sentences Extremity General Extremity: edema Skin Wounds: wounds noted size Size: See clinical note, bed granulating well, margins well approximated, no odor, open and surrounding erythema Neuro oriented x3, CN's II-XII intact bilaterally, moves all extremities and no focal motor deficits Psych mental status grossly normal, cooperative and affect normal Debridement Note Debridement Note Wound debrided: Left lower extremity Type of Debridement: Excisional debridement Anesthesia Used: 5% Lidocaine Gel Depth: Down to and including healthy tissue and - Percentage of wound debrided: 100 Instrument Used: 5mm curette Tissue Removed: Slough and devitalized tissue Severity: Fat Layer Exposed Amount of bleeding with debridement: Mild Bleeding Controlled with: Pressure Patient tolerated procedure: Patient tolerated procedure well Post-Debridement Measurements and Additional Note: Post-Debridement Measurements/Treatment - Nurse 1 - General Ulcer Assessment Start: 01/24/25 09:52 Freq: Status: Active Protocol: TANA Activity Type Activity Date Activity User E-sign Co-sign Detail Recorded Client Recorded Date Recorded By Document 01/24/25 09:52 EASTON [id number] 01/24/25 09:57 RB 01/24/25 09:52 - Today's Visit Information Type of service Follow-up Visit (Physician/SUPERVISOR [address] [address] ) Arrival Mode Ambulatory Transfer Assistance None Patient Identification Verified (Name & Yes ) Patient Requires Transmission-Based No Precautions Vital Signs Temperature (97.8 F-99.1 F) 97.8 F Temperature Source Temporal Pulse Rate (60-100) 113 H Pulse Location Monitor Respiratory Rate (12-18) 18 Respiratory rate source Observation Oxygen Delivery Method Room Air Blood Pressure (90/60-120/80) 119/86 H Blood Pressure Mean (mm Hg) 97 Source Monitor Position Sitting Blood Pressure Location Left Arm History Since Last Visit- (Skip if this is Patient's initial visit) Have you changed medications since your No last visit? Any new allergies or adverse reactions No Had a fall/change in ADL's that may No increase risk of falls Signs or symptoms of abuse and/or No neglect since last visit Have you been in the hospital since your No last visit? Has dressing in place as prescribed Yes Has compression in place as prescribed Yes Has offloadiing in place as prescribed N/A Experienced any changes in pain level or No management Pain Scale: 0-10 Numeric Is Patient Pain Free? Yes [facility] Nurse 1 - General Ulcer Measurement Start: 01/24/25 09:52 Freq: Status: Active Protocol: Activity Type Activity Date Activity User E-sign Co-sign Detail Recorded Client Recorded Date Recorded By Document 01/24/25 09:52 EASTON [id number] 01/24/25 09:57 RB 01/24/25 09:52 Wound Center Nurse 1 1-Left lateral leg -Combined with other wound No -Current Size (cm) - Length 4 -Current Size (cm) - Width 2.5 -Current Size (cm) - Depth 0.2 -Total Square Cm 10.0 -Date of Last Picture (Recall this 01/24/25 field) -Photo Taken Yes -Tunneling No -Undermining/Tunneling No -Circular Undermining No -Exudate Amt Medium -Exudate Type Serosanguineous -Wound Margin Thickened & Rolled Under -Granulation Amt Medium (34-66%) -Granulation Quality [place] -Slough/Fibrin Yes -Necrosis Amt Medium (34-66%) -Necrotic Tissue Type Adherent Slough -Structure Exposed N/A -Texture (Ashely-wound Skin Appearance) Assessed -Moisture (Ashely-wound Skin Appearance) Assessed -Color (Ashely-wound Skin Appearance) Erythema -Temperature (Ashely-wound Skin No Abnormality Appearance) (Pt Warm) -Tenderness on Palpation (Ashely-wound No Skin Appearance) -Ulcer Cleansing Wound Cleanser -Foul Odor after Cleansing No -Anesthetic Used 5% Lidocaine Gel Lower Limb Edema Present Yes Left Calf (cm) 40.6 Left Ankle (cm) 29 WC - Nurse 2 - General Ulcer CM Notes Start: 01/24/25 09:52 Freq: Status: Active Protocol: Activity Type Activity Date Activity User E-sign Co-sign Detail Recorded Client Recorded Date Recorded By Document 01/24/25 10:18 GM [id number] 01/24/25 10:20 GM 01/24/25 10:18 Wound Center Nurse 2 1-Left lateral leg -Time 10:18 -Correct Patient Yes -Correct Side, Site, Position Yes -Correct Procedure Yes -Procedure Performed Yes -Type of Procedure Debridement -Clinical Debridement Subcutaneous -Tissue Removed Subcutaneous -Post Debridement (cm) - Length 3.9 -Post Debridement (cm) - Width 2.4 -Post Debridement (cm) - Depth 0.2 -Total Square (Post) (cm) 9.36 -Area of Debridement (cm) - Length 3.9 -Area of Debridement (cm) - Width 2.4 -Total Square (Area) (cm) 9.36 -Tunneling No -Undermining/Tunneling No -Circular Undermining No -Wound/Ulcer Outcome Not Healed -Ulcer Cleansing Rinsed/ Irrigated with Saline -Foul Odor after Cleansing No -Bioengineered Tissue Yes -Type of Bioengineered Tissue Epifix Mesh -Expiration Date 05/22/29 -Product Lot Number [id number] -Percent Used 100 -Lot number of Saline Used [id number] -Bleeding Controlled with Pressure -Treatment Response Procedure Tolerated Well -Debridement - Subq, 1st 20sq cm Yes -Apply Skin Sub - 1st 25 sq cm - Legs 1 -Epifix Mesh Application 1-4 (per sq 11 cm) Pain Scale: 0-10 Numeric Is Patient Pain Free? Yes - Nurse 3 - General Ulcer D/C NN Start: 01/24/25 09:52 Freq: Status: Active Protocol: Activity Type Activity Date Activity User E-sign Co-sign Detail Recorded Client Recorded Date Recorded By Document 01/24/25 10:27 [id number] 01/24/25 10:28 TS 01/24/25 10:27 Wound Care Center Nurse 3 1-Left lateral leg -Primary Dressing Applied Aquacel Extra -Other Dressing abd -Aquacel Extra 1 LLE -Lotion applied to leg before No compression wrap -Multi-Layered Wrap Application Unna Boot - Left -Unna- Left (Qty applied) 1 Pain Scale: 0-10 Numeric Is Patient Pain Free? Yes WC - Visit Discharge Discharge Condition Stable Ambulatory Status Ambulatory Transportation Private Auto Medication Reconcilliation completed & No provided to patient/care provider Clinical Summary of Care Provided Yes Assessment/Plan Assessment/Plan (1) Ulcer of left lower extremity with fat layer exposed: CODE(S): L97.922 - Non-pressure chronic ulcer of unspecified part of left lower leg with fat layer exposed (2) Stasis dermatitis of both legs: CODE(S): I87.2 - Venous insufficiency (chronic) (peripheral) (3) Bilateral lower extremity edema: CODE(S): R60.0 - Localized edema PLAN: Plan Debridement done as documented above, procedure was well-tolerated. 4th application of EpiFix mesh using 100% of product done today. Moistened with saline, covered with wound veil and secured with Steri-Strips. Go back to Unna boots for edema management. Double layer Tubigrip's were used over the last week, obviously not enough for his compression. Encourage leg elevation and exercise as tolerated. Optimize dietary/protein intake. Prescription for Augmentin sent due to concern for cellulitis. Advised to call with any further questions or concerns. Follow-up on Tuesday for Unna boot change and with me in 1 week. This note was generated with [employer] dictation software. It may contain incorrect words, spelling, and punctuation that were not noted in checking the note before signing.
--- NOTE | 2025-01-25 09:14 | WC ---
PHOTO-LEFT LAT LEG 01/24/25
[2025-01-28 11:02] VITALS: BP 116/82; PULSE 92; RESP 18; TEMP 36.4
[2025-01-31 09:51] VITALS: BP 149/118; PULSE 64; RESP 16; TEMP 35.8
--- NOTE | 2025-01-31 12:35 | PCM.WC.PN ---
History of Present Illness Date of Service: 01/31/25 Chief Complaint: Chronic Left Leg ULcer History of Wound: Ketty is a 74-year-old who was referred to the wound center due to nonhealing left leg ulcer. Ketty states this has been an ongoing issue since age 20 however current episode has been present since September. It was noted when he looked at his lower extremity with a mirror. No significant pain. Was seen by primary care who is also surgeon and had some interventions which did not yield any significant results so was subsequently referred to the wound center. Feels rather well. Reports a diet rich in protein. Questionable history of diabetes mellitus. No chills, fever or feeling of unwell. Progress of Wound: No acute concerns reported at this time. Again, some improvement noted. Has had 4 applications of EpiFix so far. Objective Data Objective Data Vital Signs: Vital Signs Temp Pulse Resp BP O2 Del Method 96.5 F L 64 16 149/118 H Room Air 01/31/25 09:51 01/31/25 09:51 01/31/25 09:51 01/31/25 09:51 01/31/25 09:51 Oxygen Delivery Method Room Air Charges/Coding Procedures Integumentary 150xxx-152xx: 13423 Skin sub graft trnk/arm/leg Physical Exam Const alert, oriented x3 and no apparent distress General Appearance: cooperative, comfortable and well kempt HEENT normocephalic, head/scalp atraumatic and hearing grossly normal bilaterally Head and Scalp: normal to inspection and normocephalic Eyes EOMs intact bilaterally General Eye: normal appearance of both eyes Neck full ROM General: normal visual inspection Resp normal respiratory effort Effort and Inspection: able to speak in complete sentences Extremity General Extremity: edema Skin Wounds: wounds noted size Size: See clinical note, bed granulating well, margins well approximated, no odor, open and surrounding erythema Neuro oriented x3, CN's II-XII intact bilaterally, moves all extremities and no focal motor deficits Psych mental status grossly normal, cooperative and affect normal Debridement Note Debridement Note Wound debrided: Left lower extremity (lateral) Type of Debridement: Excisional debridement Anesthesia Used: 5% Lidocaine Gel Depth: Down to and including healthy tissue and in the subcutaneous layer Percentage of wound debrided: 100 Instrument Used: 5mm curette Tissue Removed: Devitalized tissue Severity: Fat Layer Exposed Amount of bleeding with debridement: Mild Bleeding Controlled with: Pressure Patient tolerated procedure: Patient tolerated procedure well Post-Debridement Measurements and Additional Note: Post-Debridement Measurements/Treatment WC - Nurse 1 - General Ulcer Assessment Start: 01/24/25 09:52 Freq: Status: Active Protocol: TANA Activity Type Activity Date Activity User E-sign Co-sign Detail Recorded Client Recorded Date Recorded By Document 01/24/25 09:52 RB [id number] 01/24/25 09:57 RB Document 01/28/25 11:02 JM [id number] 01/28/25 11:42 JM Document 01/31/25 09:51 TS [id number] 01/31/25 09:58 TS 01/24/25 01/28/25 01/31/25 09:52 11:02 09:51 - Today's Visit Information Type of service Follow-up Visit Nurse-only Follow-up Visit (Physician/SPECIAL ASSETS OFFICER Visit (Physician/SPECIAL ASSETS OFFICER ) ) Physician Covering Nurse Only Visit Jordan Combs Arrival Mode Ambulatory Ambulatory Ambulatory Transfer Assistance None None Patient Identification Verified (Name & Yes Yes Yes ) Patient Requires Transmission-Based No No No Precautions Safety Precautions NA Fall Prevention Vital Signs Temperature (97.8 F-99.1 F) 97.8 F 97.6 F L 96.5 F L Temperature Source Temporal Temporal Temporal Pulse Rate (60-100) 113 H 92 64 Pulse Location Monitor Monitor Monitor Respiratory Rate (12-18) 18 18 16 Respiratory rate source Observation Observation Observation Oxygen Delivery Method Room Air Room Air Room Air Blood Pressure (90/60-120/80) 119/86 H 116/82 H 149/118 H Blood Pressure Mean (mm Hg) 97 93 128 Source Monitor Monitor Monitor Position Sitting Sitting Sitting Blood Pressure Location Left Arm Left Arm Right Arm History Since Last Visit- (Skip if this is Patient's initial visit) Have you changed medications since your No No last visit? Any new allergies or adverse reactions No No Had a fall/change in ADL's that may No No increase risk of falls Signs or symptoms of abuse and/or No No neglect since last visit Have you been in the hospital since your No No last visit? Has dressing in place as prescribed Yes Yes Has compression in place as prescribed Yes Yes Has offloadiing in place as prescribed N/A N/A Experienced any changes in pain level or No No management Left Footwear Regular Shoe Right Footwear Regular Shoe Pain Scale: 0-10 Numeric Is Patient Pain Free? Yes Yes Yes WC - Nurse 1 - General Ulcer Measurement Start: 01/24/25 09:52 Freq: Status: Active Protocol: Activity Type Activity Date Activity User E-sign Co-sign Detail Recorded Client Recorded Date Recorded By Document 01/24/25 09:52 RB [id number] 01/24/25 09:57 RB Document 01/28/25 11:02 JM [id number] 01/28/25 11:42 JM Document 01/31/25 09:51 TS [id number] 01/31/25 09:58 TS 01/24/25 01/28/25 01/31/25 09:52 11:02 09:51 Wound Center Nurse 1 1-Left lateral leg -Combined with other wound No No No -Current Size (cm) - Length 4 4 -Current Size (cm) - Width 2.5 2.2 -Current Size (cm) - Depth 0.2 0.2 -Total Square Cm 10.0 8.8 -Date of Last Picture (Recall this 01/24/25 01/31/25 field) -Photo Taken Yes Yes -Tunneling No -Undermining/Tunneling No No -Circular Undermining No No -Exudate Amt Medium Large Medium -Exudate Type Serosanguineous Serosanguineous Serosanguineous -Wound Margin Thickened & Distinct, Rolled Under Outline Attached -Granulation Amt Medium (34-66%) Small (1-33%) -Granulation Quality [place] -Slough/Fibrin Yes -Necrosis Amt Medium (34-66%) Small (1-33%) -Necrotic Tissue Type Adherent Slough Adherent Slough -Structure Exposed N/A None/Limited to Skin Breakdown -Texture (Ashely-wound Skin Appearance) Assessed Assessed -Moisture (Ashely-wound Skin Appearance) Assessed Assessed -Color (Ashely-wound Skin Appearance) Erythema Assessed -Temperature (Ashely-wound Skin No Abnormality No Abnormality Appearance) (Pt Warm) (Pt Warm) -Tenderness on Palpation (Ashely-wound No Skin Appearance) -Ulcer Cleansing Wound Cleanser Soap and Water -Foul Odor after Cleansing No No -Anesthetic Used 5% Lidocaine 5% Lidocaine Gel Gel -Wound Comment(s) epimesh/wound veil/ steristrips left intact Lower Limb Edema Present Yes Left Calf (cm) 40.6 41.5 Point of measurement (cm from the medial 40 instep) Left Ankle (cm) 29 Point of Measurement (cm from the medial 32 instep) - Nurse 2 - General Ulcer CM Notes Start: 01/24/25 09:52 Freq: Status: Active Protocol: Activity Type Activity Date Activity User E-sign Co-sign Detail Recorded Client Recorded Date Recorded By Document 01/24/25 10:18 [id number] 01/24/25 10:20 Document 01/31/25 10:25 [id number] 01/31/25 10:28 GM 01/24/25 01/31/25 10:18 10:25 Wound Center Nurse 2 1-Left lateral leg -Time 10:18 10:25 -Correct Patient Yes Yes -Correct Side, Site, Position Yes Yes -Correct Procedure Yes Yes -Procedure Performed Yes Yes -Type of Procedure Debridement Debridement -Clinical Debridement Subcutaneous Subcutaneous -Tissue Removed Subcutaneous Subcutaneous -Post Debridement (cm) - Length 3.9 -Post Debridement (cm) - Width 2.4 -Post Debridement (cm) - Depth 0.2 -Total Square (Post) (cm) 9.36 -Area of Debridement (cm) - Length 3.9 -Area of Debridement (cm) - Width 2.4 -Total Square (Area) (cm) 9.36 -Tunneling No No -Undermining/Tunneling No No -Circular Undermining No No -Wound/Ulcer Outcome Not Healed Not Healed -Ulcer Cleansing Rinsed/ Rinsed/ Irrigated with Irrigated with Saline Saline -Foul Odor after Cleansing No No -Bioengineered Tissue Yes Yes -Type of Bioengineered Tissue Epifix Mesh Epifix Mesh -Expiration Date 05/22/29 07/22/29 -Product Lot Number [id number] -Percent Used 100 100 -Lot number of Saline Used [id number] -Bleeding Controlled with Pressure Pressure -Treatment Response Procedure Procedure Tolerated Well Tolerated Well -Offloading No -Debridement - Subq, 1st 20sq cm Yes Yes -Apply Skin Sub - 1st 25 sq cm - Legs 1 1 -Epifix Mesh Application 1-4 (per sq 11 11 cm) Pain Scale: 0-10 Numeric Is Patient Pain Free? Yes Yes - Nurse 3 - General Ulcer D/C NN Start: 01/24/25 09:52 Freq: Status: Active Protocol: Activity Type Activity Date Activity User E-sign Co-sign Detail Recorded Client Recorded Date Recorded By Document 01/24/25 10:27 TS [id number] 01/24/25 10:28 Document 01/28/25 11:42 JM [id number] 01/28/25 11:44 Document 01/31/25 10:48 RB [id number] 01/31/25 10:49 RB 01/24/25 01/28/25 01/31/25 10:27 11:42 10:48 Wound Care Center Nurse 3 1-Left lateral leg -Ulcer Cleansing Soap and Water -Foul Odor after Cleansing No -Primary Dressing Applied Aquacel Extra Aquacel Extra Aquacel Extra -Other Dressing abd ABD -Primary Dressing Covered/Secured with Other -Other Covering covered w/ABD pad -Patient Supplied Dressing Yes -Aquacel Extra 1 0 1 LLE -Lotion applied to leg before No compression wrap -Multi-Layered Wrap Application Unna Boot - Unna Boot - Unna Boot - Left Left Left -Unna- Left (Qty applied) 1 1 1 Treatment Response Procedure Tolerated Well Pain Scale: 0-10 Numeric Is Patient Pain Free? Yes Yes Yes WC - Visit Discharge Discharge Condition Stable Stable Stable Ambulatory Status Ambulatory Ambulatory Ambulatory Transportation Private Auto Private Auto Private Auto Medication Reconcilliation completed & No No provided to patient/care provider Clinical Summary of Care Provided Yes Yes Assessment/Plan Assessment/Plan (1) Ulcer of left lower extremity with fat layer exposed: CODE(S): L97.922 - Non-pressure chronic ulcer of unspecified part of left lower leg with fat layer exposed (2) Stasis dermatitis of both legs: CODE(S): I87.2 - Venous insufficiency (chronic) (peripheral) (3) Bilateral lower extremity edema: CODE(S): R60.0 - Localized edema PLAN: Plan Debridement done as documented above, procedure was well-tolerated. As above, some improvement noted. Concern for ASHELY ulcer cellulitis has resolved. 5th application of EpiFix mesh using 100% of product done today. Moistened with saline, covered with wound veil and secured with Steri-Strips. Continue Unna boots for edema management. Encourage leg elevation and exercise as tolerated. Optimize dietary/protein intake. Advised to call with any further questions or concerns. Follow-up on Tuesday for Unna boot change and with me in 1 week. This note was generated with [employer] dictation software. It may contain incorrect words, spelling, and punctuation that were not noted in checking the note before signing.
--- NOTE | 2025-02-01 11:38 | WC ---
PHOTO-RIGHT LAT LEG 01/31/25
[2025-02-04 13:39] VITALS: BP 119/82; PULSE 94; RESP 18; TEMP 36.6
[2025-02-07 10:12] VITALS: BP 138/74; PULSE 87; RESP 16; TEMP 36.4
--- NOTE | 2025-02-07 12:51 | PN.PCM_ITS ---
History of Present Illness Date of Service: 02/07/25 Chief Complaint: Chronic Left Leg ULcer History of Wound: Ketty is a 74-year-old who was referred to the wound center due to nonhealing left leg ulcer. Ketty states this has been an ongoing issue since age 20 however current episode has been present since September. It was noted when he looked at his lower extremity with a mirror. No significant pain. Was seen by primary care who is also surgeon and had some interventions which did not yield any significant results so was subsequently referred to the wound center. Feels rather well. Reports a diet rich in protein. Questionable history of diabetes mellitus. No chills, fever or feeling of unwell. Progress of Wound: No new concerns reported at this time. Has had 5 applications of EpiFix so far and has tolerated these well. Objective Data Objective Data Vital Signs: Vital Signs Temp Pulse Resp BP O2 Del Method 97.5 F L 87 16 138/74 H Room Air 02/07/25 10:12 02/07/25 10:12 02/07/25 10:12 02/07/25 10:12 02/07/25 10:12 Oxygen Delivery Method Room Air Charges/Coding Procedures Integumentary 150xxx-152xx: 10922 Skin sub graft trnk/arm/leg Physical Exam Const alert, oriented x3 and no apparent distress General Appearance: cooperative, comfortable and well kempt HEENT normocephalic, head/scalp atraumatic and hearing grossly normal bilaterally Head and Scalp: normal to inspection and normocephalic Eyes EOMs intact bilaterally General Eye: normal appearance of both eyes Neck full ROM General: normal visual inspection Resp normal respiratory effort Effort and Inspection: able to speak in complete sentences Extremity General Extremity: edema Skin Wounds: wounds noted size Size: See clinical note, bed granulating well, margins well approximated, no odor, open and surrounding erythema Neuro oriented x3, CN's II-XII intact bilaterally, moves all extremities and no focal motor deficits Psych mental status grossly normal, cooperative and affect normal Debridement Note Debridement Note Wound debrided: Left lower extremity Type of Debridement: Excisional debridement Anesthesia Used: 5% Lidocaine Gel Depth: Down to and including healthy tissue and in the subcutaneous layer Percentage of wound debrided: 100 Instrument Used: 5mm curette Tissue Removed: Devitalized tissue Severity: Fat Layer Exposed Amount of bleeding with debridement: Mild Bleeding Controlled with: Pressure Patient tolerated procedure: Patient tolerated procedure well Post-Debridement Measurements and Additional Note: Post-Debridement Measurements/Treatment WC - Nurse 1 - General Ulcer Assessment Start: 01/24/25 09:52 Freq: Status: Active Protocol: TANA Activity Type Activity Date Activity User E-sign Co-sign Detail Recorded Client Recorded Date Recorded By Document 01/24/25 09:52 RB [id number] 01/24/25 09:57 RB Document 01/28/25 11:02 JM [id number] 01/28/25 11:42 JM Document 01/31/25 09:51 TS [id number] 01/31/25 09:58 TS Document 02/04/25 13:39 RB [id number] 02/04/25 13:41 RB Document 02/07/25 10:12 TS [id number] 02/07/25 10:22 TS 01/24/25 01/28/25 01/31/25 09:52 11:02 09:51 WC - Today's Visit Information Type of service Follow-up Visit Nurse-only Follow-up Visit (Physician/HAND MIXER Visit (Physician/HAND MIXER ) ) Physician Covering Nurse Only Visit Jordan Combs Arrival Mode Ambulatory Ambulatory Ambulatory Transfer Assistance None None Patient Identification Verified (Name & Yes Yes Yes ) Patient Requires Transmission-Based No No No Precautions Safety Precautions NA Fall Prevention Vital Signs Temperature (97.8 F-99.1 F) 97.8 F 97.6 F L 96.5 F L Temperature Source Temporal Temporal Temporal Pulse Rate (60-100) 113 H 92 64 Pulse Location Monitor Monitor Monitor Respiratory Rate (12-18) 18 18 16 Respiratory rate source Observation Observation Observation Oxygen Delivery Method Room Air Room Air Room Air Blood Pressure (90/60-120/80) 119/86 H 116/82 H 149/118 H Blood Pressure Mean (mm Hg) 97 93 128 Source Monitor Monitor Monitor Position Sitting Sitting Sitting Blood Pressure Location Left Arm Left Arm Right Arm History Since Last Visit- (Skip if this is Patient's initial visit) Have you changed medications since your No No last visit? Any new allergies or adverse reactions No No Had a fall/change in ADL's that may No No increase risk of falls Signs or symptoms of abuse and/or No No neglect since last visit Have you been in the hospital since your No No last visit? Has dressing in place as prescribed Yes Yes Has compression in place as prescribed Yes Yes Has offloadiing in place as prescribed N/A N/A Experienced any changes in pain level or No No management Left Footwear Regular Shoe Right Footwear Regular Shoe Pain Scale: 0-10 Numeric Is Patient Pain Free? Yes Yes Yes 02/04/25 02/07/25 13:39 10:12 - Today's Visit Information Type of service Nurse-only Follow-up Visit Visit (Physician/HAND MIXER ) Physician Covering Nurse Only Visit Arrival Mode Ambulatory Ambulatory Transfer Assistance None Patient Identification Verified (Name & Yes Yes ) Patient Requires Transmission-Based No Precautions Safety Precautions Fall Prevention Vital Signs Temperature (97.8 F-99.1 F) 98 F 97.5 F L Temperature Source Temporal Temporal Pulse Rate (60-100) 94 87 Pulse Location Monitor Monitor Respiratory Rate (12-18) 18 16 Respiratory rate source Observation Oxygen Delivery Method Room Air Room Air Blood Pressure (90/60-120/80) 119/82 H 138/74 H Blood Pressure Mean (mm Hg) 94 95 Source Monitor Monitor Position Sitting Semi-Fowlers Blood Pressure Location Left Arm Right Arm History Since Last Visit- (Skip if this is Patient's initial visit) Have you changed medications since your No No last visit? Any new allergies or adverse reactions No No Had a fall/change in ADL's that may No No increase risk of falls Signs or symptoms of abuse and/or No No neglect since last visit Have you been in the hospital since your No last visit? Has dressing in place as prescribed Yes Yes Has compression in place as prescribed Yes Yes Has offloadiing in place as prescribed N/A N/A Experienced any changes in pain level or No No management Left Footwear Regular Shoe Right Footwear Regular Shoe Pain Scale: 0-10 Numeric Is Patient Pain Free? Yes Yes - Nurse 1 - General Ulcer Measurement Start: 01/24/25 09:52 Freq: Status: Active Protocol: Activity Type Activity Date Activity User E-sign Co-sign Detail Recorded Client Recorded Date Recorded By Document 01/24/25 09:52 RB [id number] 01/24/25 09:57 RB Document 01/28/25 11:02 JM [id number] 01/28/25 11:42 JM Document 01/31/25 09:51 TS [id number] 01/31/25 09:58 TS Document 02/04/25 13:39 RB [id number] 02/04/25 13:41 RB Document 02/07/25 10:12 TS [id number] 02/07/25 10:22 TS 01/24/25 01/28/25 01/31/25 09:52 11:02 09:51 Wound Center Nurse 1 1-Left lateral leg -Combined with other wound No No No -Current Size (cm) - Length 4 4 -Current Size (cm) - Width 2.5 2.2 -Current Size (cm) - Depth 0.2 0.2 -Total Square Cm 10.0 8.8 -Date of Last Picture (Recall this 01/24/25 01/31/25 field) -Photo Taken Yes Yes -Tunneling No -Undermining/Tunneling No No -Circular Undermining No No -Exudate Amt Medium Large Medium -Exudate Type Serosanguineous Serosanguineous Serosanguineous -Wound Margin Thickened & Distinct, Rolled Under Outline Attached -Granulation Amt Medium (34-66%) Small (1-33%) -Granulation Quality [place] -Slough/Fibrin Yes -Necrosis Amt Medium (34-66%) Small (1-33%) -Necrotic Tissue Type Adherent Slough Adherent Slough -Structure Exposed N/A None/Limited to Skin Breakdown -Texture (Ashely-wound Skin Appearance) Assessed Assessed -Moisture (Ashely-wound Skin Appearance) Assessed Assessed -Color (Ashely-wound Skin Appearance) Erythema Assessed -Temperature (Ashely-wound Skin No Abnormality No Abnormality Appearance) (Pt Warm) (Pt Warm) -Tenderness on Palpation (Ashely-wound No Skin Appearance) -Ulcer Cleansing Wound Cleanser Soap and Water -Foul Odor after Cleansing No No -Anesthetic Used 5% Lidocaine 5% Lidocaine Gel Gel -Wound Comment(s) epimesh/wound veil/ steristrips left intact Lower Limb Edema Present Yes Point of measurement (cm from the medial instep) Point of Measurement (cm from the medial instep) Left Calf (cm) 40.6 41.5 Point of measurement (cm from the medial 40 instep) Left Ankle (cm) 29 Point of Measurement (cm from the medial 32 instep) 02/04/25 02/07/25 13:39 10:12 Wound Center Nurse 1 1-Left lateral leg -Combined with other wound No No -Current Size (cm) - Length 4 -Current Size (cm) - Width 3.1 -Current Size (cm) - Depth 0.2 -Total Square Cm 12.4 -Date of Last Picture (Recall this 02/07/25 field) -Photo Taken Yes -Tunneling -Undermining/Tunneling No -Circular Undermining No -Exudate Amt Medium Medium -Exudate Type Serosanguineous Serosanguineous -Wound Margin Thickened & Rolled Under -Granulation Amt Small (1-33%) -Granulation Quality [place],Red -Slough/Fibrin Yes -Necrosis Amt Large (67-100%) -Necrotic Tissue Type Adherent Slough -Structure Exposed Fascia -Texture (Ashely-wound Skin Appearance) Assessed -Moisture (Ashely-wound Skin Appearance) No Abnormality, Assessed -Color (Ashely-wound Skin Appearance) Assessed -Temperature (Ashely-wound Skin No Abnormality Appearance) (Pt Warm) -Tenderness on Palpation (Ashely-wound Skin Appearance) -Ulcer Cleansing Soap and Water -Foul Odor after Cleansing No -Anesthetic Used 5% Lidocaine Gel -Wound Comment(s) Lower Limb Edema Present Yes Point of measurement (cm from the medial 30 instep) Point of Measurement (cm from the medial 29 instep) Left Calf (cm) 39 Point of measurement (cm from the medial 32 instep) Left Ankle (cm) 25.7 Point of Measurement (cm from the medial 23 instep) WC - Nurse 2 - General Ulcer CM Notes Start: 01/24/25 09:52 Freq: Status: Active Protocol: Activity Type Activity Date Activity User E-sign Co-sign Detail Recorded Client Recorded Date Recorded By Document 01/24/25 10:18 GM [id number] 01/24/25 10:20 GM Edit Result 01/24/25 10:18 GM (1) [id number] 02/01/25 07:42 GM Document 01/31/25 10:25 GM [id number] 01/31/25 10:28 GM Document 02/07/25 10:41 GM [id number] 02/07/25 10:45 GM (1) 1-Left lateral leg - Debridement - Subq, 1st 20sq cm Yes => No 01/24/25 01/31/25 02/07/25 10:18 10:25 10:41 Wound Center Nurse 2 1-Left lateral leg -Time 10:18 10:25 10:41 -Correct Patient Yes Yes Yes -Correct Side, Site, Position Yes Yes Yes -Correct Procedure Yes Yes Yes -Procedure Performed Yes Yes Yes -Type of Procedure Debridement Debridement Debridement -Clinical Debridement Subcutaneous Subcutaneous Subcutaneous -Tissue Removed Subcutaneous Subcutaneous Subcutaneous -Post Debridement (cm) - Length 3.9 3.7 -Post Debridement (cm) - Width 2.4 1.9 -Post Debridement (cm) - Depth 0.2 0.2 -Total Square (Post) (cm) 9.36 7.03 -Area of Debridement (cm) - Length 3.9 3.7 -Area of Debridement (cm) - Width 2.4 1.9 -Total Square (Area) (cm) 9.36 7.03 -Tunneling No No No -Undermining/Tunneling No No No -Circular Undermining No No No -Wound/Ulcer Outcome Not Healed Not Healed Not Healed -Ulcer Cleansing Rinsed/ Rinsed/ Rinsed/ Irrigated with Irrigated with Irrigated with Saline Saline Saline -Foul Odor after Cleansing No No No -Bioengineered Tissue Yes Yes Yes -Type of Bioengineered Tissue Epifix Mesh Epifix Mesh Epifix Mesh -Expiration Date 05/22/29 07/22/29 07/22/29 -Product Lot Number [id number] -Percent Used 100 100 100 -Lot number of Saline Used [id number] -Bleeding Controlled with Pressure Pressure Pressure -Treatment Response Procedure Procedure Procedure Tolerated Well Tolerated Well Tolerated Well -Offloading No No -Debridement - Subq, 1st 20sq cm No Yes No -Apply Skin Sub - 1st 25 sq cm - Legs 1 1 1 -Epifix Mesh Application 1-4 (per sq 11 11 11 cm) Pain Scale: 0-10 Numeric Is Patient Pain Free? Yes Yes Yes WC - Nurse 3 - General Ulcer D/C NN Start: 01/24/25 09:52 Freq: Status: Active Protocol: Activity Type Activity Date Activity User E-sign Co-sign Detail Recorded Client Recorded Date Recorded By Document 01/24/25 10:27 TS [id number] 01/24/25 10:28 TS Document 01/28/25 11:42 JM [id number] 01/28/25 11:44 Document 01/31/25 10:48 RB [id number] 01/31/25 10:49 RB Document 02/04/25 13:39 RB [id number] 02/04/25 13:41 RB Document 02/07/25 11:09 ML [id number] 02/07/25 11:10 ML 01/24/25 01/28/25 01/31/25 10:27 11:42 10:48 Wound Care Center Nurse 3 1-Left lateral leg -Ulcer Cleansing Soap and Water -Foul Odor after Cleansing No -Primary Dressing Applied Aquacel Extra Aquacel Extra Aquacel Extra -Other Dressing abd ABD -Primary Dressing Covered/Secured with Other -Other Covering covered w/ABD pad -Patient Supplied Dressing Yes -Aquacel Extra 1 0 1 -Aquacel AG 4x4 LLE -Lotion applied to leg before No compression wrap -Multi-Layered Wrap Application Unna Boot - Unna Boot - Unna Boot - Left Left Left -Unna- Left (Qty applied) 1 1 1 Treatment Response Procedure Tolerated Well Pain Scale: 0-10 Numeric Is Patient Pain Free? Yes Yes Yes WC - Visit Discharge Discharge Condition Stable Stable Stable Ambulatory Status Ambulatory Ambulatory Ambulatory Transportation Private Auto Private Auto Private Auto Medication Reconcilliation completed & No No provided to patient/care provider Clinical Summary of Care Provided Yes Yes 02/04/25 02/07/25 13:39 11:09 Wound Care Center Nurse 3 1-Left lateral leg -Ulcer Cleansing Wound Cleanser -Foul Odor after Cleansing -Primary Dressing Applied -Other Dressing aquacel extra/ abd abd -Primary Dressing Covered/Secured with -Other Covering -Patient Supplied Dressing -Aquacel Extra -Aquacel AG 4x4 1 LLE -Lotion applied to leg before compression wrap -Multi-Layered Wrap Application Unna Boot - Unna Boot - Left Left -Unna- Left (Qty applied) 1 1 Treatment Response Procedure Tolerated Well Pain Scale: 0-10 Numeric Is Patient Pain Free? Yes Yes WC - Visit Discharge Discharge Condition Stable Ambulatory Status Ambulatory Transportation Private Auto Medication Reconcilliation completed & No provided to patient/care provider Clinical Summary of Care Provided Yes Assessment/Plan Assessment/Plan (1) Ulcer of left lower extremity with fat layer exposed: CODE(S): L97.922 - Non-pressure chronic ulcer of unspecified part of left lower leg with fat layer exposed (2) Stasis dermatitis of both legs: CODE(S): I87.2 - Venous insufficiency (chronic) (peripheral) (3) Bilateral lower extremity edema: CODE(S): R60.0 - Localized edema PLAN: Plan Debridement done as documented above, procedure was well-tolerated. Continues to show slow but steady improvement. 6th application of EpiFix mesh using 100% of product done today. Moistened with saline, covered with wound veil and secured with Steri-Strips. Continue Unna boots for edema management. Encourage leg elevation and exercise as tolerated. Optimize dietary/protein intake. Advised to call with any further questions or concerns. Follow-up on Tuesday for nurse visit/Unna boot change. Used a for courtesy visit and me due to the holidays. This note was generated with [employer] dictation software. It may contain incorrect words, spelling, and punctuation that were not noted in checking the note before signing.
--- NOTE | 2025-02-08 09:27 | WC ---
PHOTO-LEFT LATERAL LEG 02/07/25
[2025-02-12 09:54] VITALS: BP 131/86; PULSE 89; RESP 18; TEMP 36.2
--- NOTE | 2025-02-12 15:29 | PCM.WC.HP ---
History of Present Illness Date of Service: 02/12/25 Chief Complaint: Chronic Left Leg ULcer History of Wound: The patient is seen as a courtesy to Dr. Ricketts, who is the patient's regular Wound Center provider. The patient's past medical history has been previously documented, as below: Ketty is a 74-year-old who was referred to the wound center due to nonhealing left leg ulcer. Ketty states this has been an ongoing issue since age 20 however current episode has been present since September. It was noted when he looked at his lower extremity with a mirror. No significant pain. Was seen by primary care who is also surgeon and had some interventions which did not yield any significant results so was subsequently referred to the wound center. Feels rather well. Reports a diet rich in protein. Questionable history of diabetes mellitus. No chills, fever or feeling of unwell. The patient claims to sleep on a flat mattress. He denies a history of thrombophlebitis. He states that he is prediabetic, and denies that he currently smokes. Progress of Wound: No new concerns reported at this time. Has had 6 applications of EpiFix so far and has tolerated these well. The last EpiFix was applied on February 07, 2025. [facility] Medical History Localized swelling of both lower legs Venous stasis ulcer of left lower leg with edema of left lower leg Bilateral lower extremity edema Stasis dermatitis of both legs Ulcer of left lower extremity with fat layer exposed Home Medications ?Medication ?Instructions ?Recorded ?Last Taken ?Type atorvastatin 40 mg tablet 40 mg PO DAILY 11/29/24 Unknown History furosemide 20 mg tablet 20 mg PO DAILY 11/29/24 Unknown History lisinopril 2.5 mg tablet 2.5 mg PO DAILY 11/29/24 Unknown History metoprolol succinate 25 mg 25 mg PO DAILY 11/29/24 Unknown History tablet,extended release 24 hr (Toprol XL) amoxicillin 875 mg-potassium 1 tab PO Q12H #14 tabs 01/24/25 Unknown Rx clavulanate 125 mg tablet Allergy/AdvReac Type Severity Reaction Status Date / Time No Known Allergies Allergy Verified 11/29/24 09:12 Social History Smoking Status: Former smoker Vital Signs Vital Signs Vital Signs: 02/12/25 09:54 Temperature 97.1 F L Temperature Source Temporal Pulse Rate 89 Respiratory Rate 18 Blood Pressure 131/86 H Blood Pressure Mean 101 Blood Pressure Source Monitor Blood Pressure Position Sitting Blood Pressure Location Right Arm Oxygen Delivery Method Room Air Physical Exam Const alert, oriented x3 and no apparent distress General Appearance: cooperative, comfortable and well developed Orientation / Consciousness: awake, oriented to person, oriented to place and oriented to time Exam Limitations: no limitations HEENT normocephalic and head/scalp atraumatic Head and Scalp: normal to inspection, normocephalic and atraumatic Face and Sinus: normal facial exam Nose: external nose normal External Ear: external ears normal Eyes EOMs intact bilaterally General Eye: normal appearance of both eyes Alignment: alignment normal Neck full ROM General: normal visual inspection Resp normal respiratory effort, normal air movement, no retractions and no use of accessory muscles Effort and Inspection: able to speak in complete sentences Extremity General Extremity: edema Skin Wounds: wounds noted size Size: See clinical note, bed granulating well, margins well approximated, no odor, open and surrounding erythema Wound Narrative: Moderate swelling and edema are noted in the patient's left lower extremity. A diffuse, scaly dermatitis is noted in the left gaiter area. An ulceration is noted on the distal left lateral calf, just proximal to the ankle. There is no sign of infection or cellulitis. Dimensions are documented elsewhere. There is a small amount of bioburden and slough. Ulcer margins are moderately well beveled. Neuro oriented x3, CN's II-XII intact bilaterally, moves all extremities and no focal motor deficits Sensorium / Orientation: awake, alert, oriented to person, oriented to place and oriented to time Speech: speech normal Psych mental status grossly normal, cooperative and affect normal Attitude: calm Speech: normal speech Mood & Affect: euthymic mood Attention / Concentration: attention grossly intact Debridement Note Debridement Note Wound debrided: Left lower extremity venous ulceration Laterality: Left Type of Debridement: Excisional debridement Anesthesia Used: 5% Lidocaine Gel Depth: Down to and including healthy tissue and in the subcutaneous layer Percentage of wound debrided: 100 Instrument Used: 5mm curette Tissue Removed: Slough and bioburden Severity: Fat Layer Exposed Amount of bleeding with debridement: Mild Bleeding Controlled with: Compression and gauze Patient tolerated procedure: Patient tolerated procedure well Debridement Free Text: Following a routine excisional debridement, which was well-tolerated, a meshed EpiFix allograft was applied. Based upon the dimensions of the ulceration, a 4.0 cm x 4.5 cm meshed EpiFix allograft was applied topically. The allograft was removed from its sterile packaging, and was applied to the ulceration. Once in place, Adaptic Touch was applied over the graft, which was then secured with Steri-Strips. Collagen hydrogel was applied over the Adaptic Touch, and a dry sterile gauze dressing was applied. This represents the 7th application of an allograft at this site. 100% of the allograft was utilized. Post-Debridement Measurements and Additional Note: Post-Debridement Measurements/Treatment - Nurse 1 - General Ulcer Assessment Start: 01/24/25 09:52 Freq: Status: Active Protocol: TANA Activity Type Activity Date Activity User E-sign Co-sign Detail Recorded Client Recorded Date Recorded By Document 01/24/25 09:52 RB [id number] 01/24/25 09:57 RB Document 01/28/25 11:02 [id number] 01/28/25 11:42 Document 01/31/25 09:51 TS [id number] 01/31/25 09:58 TS Document 02/04/25 13:39 RB [id number] 02/04/25 13:41 RB Document 02/07/25 10:12 TS [id number] 02/07/25 10:22 TS Document 02/12/25 09:54 RB [id number] 02/12/25 10:05 RB 01/24/25 01/28/25 01/31/25 09:52 11:02 09:51 - Today's Visit Information Type of service Follow-up Visit Nurse-only Follow-up Visit (Physician/FINANCIAL AID ADVISOR Visit (Physician/FINANCIAL AID ADVISOR ) ) Physician Covering Nurse Only Visit Jordan Combs Arrival Mode Ambulatory Ambulatory Ambulatory Transfer Assistance None None Patient Identification Verified (Name & Yes Yes Yes ) Patient Requires Transmission-Based No No No Precautions Safety Precautions NA Fall Prevention Vital Signs Temperature (97.8 F-99.1 F) 97.8 F 97.6 F L 96.5 F L Temperature Source Temporal Temporal Temporal Pulse Rate (60-100) 113 H 92 64 Pulse Location Monitor Monitor Monitor Respiratory Rate (12-18) 18 18 16 Respiratory rate source Observation Observation Observation Oxygen Delivery Method Room Air Room Air Room Air Blood Pressure (90/60-120/80) 119/86 H 116/82 H 149/118 H Blood Pressure Mean 97 93 128 Source Monitor Monitor Monitor Position Sitting Sitting Sitting Blood Pressure Location Left Arm Left Arm Right Arm History Since Last Visit- (Skip if this is Patient's initial visit) Have you changed medications since your No No last visit? Any new allergies or adverse reactions No No Had a fall/change in ADL's that may No No increase risk of falls Signs or symptoms of abuse and/or No No neglect since last visit Have you been in the hospital since your No No last visit? Has dressing in place as prescribed Yes Yes Has compression in place as prescribed Yes Yes Has offloadiing in place as prescribed N/A N/A Experienced any changes in pain level or No No management Left Footwear Regular Shoe Right Footwear Regular Shoe Pain Scale: 0-10 Numeric Is Patient Pain Free? Yes Yes Yes 02/04/25 02/07/25 02/12/25 13:39 10:12 09:54 - Today's Visit Information Type of service Nurse-only Follow-up Visit Follow-up Visit Visit (Physician/FINANCIAL AID ADVISOR (Physician/FINANCIAL AID ADVISOR ) ) Physician Covering Nurse Only Visit Arrival Mode Ambulatory Ambulatory Ambulatory Transfer Assistance None None Patient Identification Verified (Name & Yes Yes Yes ) Patient Requires Transmission-Based No No Precautions Safety Precautions Fall Prevention Vital Signs Temperature (97.8 F-99.1 F) 98 F 97.5 F L 97.1 F L Temperature Source Temporal Temporal Temporal Pulse Rate (60-100) 94 87 89 Pulse Location Monitor Monitor Monitor Respiratory Rate (12-18) 18 16 18 Respiratory rate source Observation Observation Oxygen Delivery Method Room Air Room Air Room Air Blood Pressure (90/60-120/80) 119/82 H 138/74 H 131/86 H Blood Pressure Mean 94 95 101 Source Monitor Monitor Monitor Position Sitting Semi-Fowlers Sitting Blood Pressure Location Left Arm Right Arm Right Arm History Since Last Visit- (Skip if this is Patient's initial visit) Have you changed medications since your No No No last visit? Any new allergies or adverse reactions No No No Had a fall/change in ADL's that may No No No increase risk of falls Signs or symptoms of abuse and/or No No No neglect since last visit Have you been in the hospital since your No No last visit? Has dressing in place as prescribed Yes Yes Yes Has compression in place as prescribed Yes Yes Yes Has offloadiing in place as prescribed N/A N/A N/A Experienced any changes in pain level or No No No management Left Footwear Regular Shoe Regular Shoe Right Footwear Regular Shoe Regular Shoe Pain Scale: 0-10 Numeric Is Patient Pain Free? Yes Yes Yes WC - Nurse 1 - General Ulcer Measurement Start: 01/24/25 09:52 Freq: Status: Active Protocol: Activity Type Activity Date Activity User E-sign Co-sign Detail Recorded Client Recorded Date Recorded By Document 01/24/25 09:52 RB [id number] 01/24/25 09:57 RB Document 01/28/25 11:02 JM [id number] 01/28/25 11:42 JM Document 01/31/25 09:51 TS [id number] 01/31/25 09:58 TS Document 02/04/25 13:39 RB [id number] 02/04/25 13:41 RB Document 02/07/25 10:12 TS [id number] 02/07/25 10:22 TS Document 02/12/25 09:54 RB [id number] 02/12/25 10:05 RB 01/24/25 01/28/25 01/31/25 09:52 11:02 09:51 Wound Center Nurse 1 1-Left lateral leg -Combined with other wound No No No -Current Size (cm) - Length 4 4 -Current Size (cm) - Width 2.5 2.2 -Current Size (cm) - Depth 0.2 0.2 -Total Square Cm 10.0 8.8 -Date of Last Picture (Recall this 01/24/25 01/31/25 field) -Photo Taken Yes Yes -Tunneling No -Undermining/Tunneling No No -Circular Undermining No No -Exudate Amt Medium Large Medium -Exudate Type Serosanguineous Serosanguineous Serosanguineous -Wound Margin Thickened & Distinct, Rolled Under Outline Attached -Granulation Amt Medium (34-66%) Small (1-33%) -Granulation Quality [place],Red -Slough/Fibrin Yes -Necrosis Amt Medium (34-66%) Small (1-33%) -Necrotic Tissue Type Adherent Slough Adherent Slough -Structure Exposed N/A None/Limited to Skin Breakdown -Texture (Ashely-wound Skin Appearance) Assessed Assessed -Moisture (Ashely-wound Skin Appearance) Assessed Assessed -Color (Ashely-wound Skin Appearance) Erythema Assessed -Temperature (Ashely-wound Skin No Abnormality No Abnormality Appearance) (Pt Warm) (Pt Warm) -Tenderness on Palpation (Ashely-wound No Skin Appearance) -Ulcer Cleansing Wound Cleanser Soap and Water -Foul Odor after Cleansing No No -Anesthetic Used 5% Lidocaine 5% Lidocaine Gel Gel -Wound Comment(s) epimesh/wound veil/ steristrips left intact Lower Limb Edema Present Yes Point of measurement (cm from the medial instep) Point of Measurement (cm from the medial instep) Left Calf (cm) 40.6 41.5 Point of measurement (cm from the medial 40 instep) Left Ankle (cm) 29 Point of Measurement (cm from the medial 32 instep) 02/04/25 02/07/25 02/12/25 13:39 10:12 09:54 Wound Center Nurse 1 1-Left lateral leg -Combined with other wound No No No -Current Size (cm) - Length 4 3.3 -Current Size (cm) - Width 3.1 1.3 -Current Size (cm) - Depth 0.2 0.2 -Total Square Cm 12.4 4.29 -Date of Last Picture (Recall this 02/07/25 02/12/25 field) -Photo Taken Yes Yes -Tunneling No -Undermining/Tunneling No No -Circular Undermining No No -Exudate Amt Medium Medium Large -Exudate Type Serosanguineous Serosanguineous Serosanguineous -Wound Margin Thickened & Distinct, Rolled Under Outline Attached -Granulation Amt Small (1-33%) Medium (34-66%) -Granulation Quality [place] -Slough/Fibrin Yes Yes -Necrosis Amt Large (67-100%) Medium (34-66%) -Necrotic Tissue Type Adherent Slough Adherent Slough -Structure Exposed Fascia N/A -Texture (Ashely-wound Skin Appearance) Assessed Assessed -Moisture (Ashely-wound Skin Appearance) No Abnormality, Assessed Assessed -Color (Ashely-wound Skin Appearance) Assessed Assessed, Hemosiderin Staining -Temperature (Ashely-wound Skin No Abnormality No Abnormality Appearance) (Pt Warm) (Pt Warm) -Tenderness on Palpation (Ashely-wound No Skin Appearance) -Ulcer Cleansing Soap and Water Wound Cleanser -Foul Odor after Cleansing No No -Anesthetic Used 5% Lidocaine 5% Lidocaine Gel Gel -Wound Comment(s) Lower Limb Edema Present Yes Yes Point of measurement (cm from the medial 30 instep) Point of Measurement (cm from the medial 29 instep) Left Calf (cm) 39 38.5 Point of measurement (cm from the medial 32 instep) Left Ankle (cm) 25.7 26.2 Point of Measurement (cm from the medial 23 instep) WC - Nurse 2 - General Ulcer CM Notes Start: 01/24/25 09:52 Freq: Status: Active Protocol: Activity Type Activity Date Activity User E-sign Co-sign Detail Recorded Client Recorded Date Recorded By Document 01/24/25 10:18 GM [id number] 01/24/25 10:20 GM Edit Result 01/24/25 10:18 GM (1) [id number] 02/01/25 07:42 GM Document 01/31/25 10:25 GM [id number] 01/31/25 10:28 GM Document 02/07/25 10:41 GM [id number] 02/07/25 10:45 GM Document 02/12/25 10:38 DS [id number] 02/12/25 10:51 DS (1) 1-Left lateral leg - Debridement - Subq, 1st 20sq cm Yes => No 01/24/25 01/31/25 02/07/25 10:18 10:25 10:41 Wound Center Nurse 2 1-Left lateral leg -Time 10:18 10:25 10:41 -Correct Patient Yes Yes Yes -Correct Side, Site, Position Yes Yes Yes -Correct Procedure Yes Yes Yes -Procedure Performed Yes Yes Yes -Type of Procedure Debridement Debridement Debridement -Clinical Debridement Subcutaneous Subcutaneous Subcutaneous -Tissue Removed Subcutaneous Subcutaneous Subcutaneous -Post Debridement (cm) - Length 3.9 3.7 -Post Debridement (cm) - Width 2.4 1.9 -Post Debridement (cm) - Depth 0.2 0.2 -Total Square (Post) (cm) 9.36 7.03 -Area of Debridement (cm) - Length 3.9 3.7 -Area of Debridement (cm) - Width 2.4 1.9 -Total Square (Area) (cm) 9.36 7.03 -Tunneling No No No -Undermining/Tunneling No No No -Circular Undermining No No No -Wound/Ulcer Outcome Not Healed Not Healed Not Healed -Ulcer Cleansing Rinsed/ Rinsed/ Rinsed/ Irrigated with Irrigated with Irrigated with Saline Saline Saline -Foul Odor after Cleansing No No No -Bioengineered Tissue Yes Yes Yes -Type of Bioengineered Tissue Epifix Mesh Epifix Mesh Epifix Mesh -Expiration Date 05/22/29 07/22/29 07/22/29 -Product Lot Number [id number] -Percent Used 100 100 100 -Lot number of Saline Used [id number] -Bleeding Controlled with Pressure Pressure Pressure -Treatment Response Procedure Procedure Procedure Tolerated Well Tolerated Well Tolerated Well -Offloading No No -Debridement - Subq, 1st 20sq cm No Yes No -Apply Skin Sub - 1st 25 sq cm - Legs 1 1 1 -Epifix Mesh Application 1-4 (per sq 11 11 11 cm) Pain Scale: 0-10 Numeric Is Patient Pain Free? Yes Yes Yes 02/12/25 10:38 Wound Center Nurse 2 1-Left lateral leg -Time 10:38 -Correct Patient Yes -Correct Side, Site, Position Yes -Correct Procedure Yes -Procedure Performed Yes -Type of Procedure Debridement -Clinical Debridement Subcutaneous -Tissue Removed Subcutaneous -Post Debridement (cm) - Length 3.5 -Post Debridement (cm) - Width 2.0 -Post Debridement (cm) - Depth 0.3 -Total Square (Post) (cm) 7.00 -Area of Debridement (cm) - Length 3.5 -Area of Debridement (cm) - Width 2.0 -Total Square (Area) (cm) 7.00 -Tunneling No -Undermining/Tunneling No -Circular Undermining No -Wound/Ulcer Outcome Not Healed -Ulcer Cleansing Rinsed/ Irrigated with Saline -Foul Odor after Cleansing No -Bioengineered Tissue Yes -Type of Bioengineered Tissue Epifix Mesh -Expiration Date 07/22/29 -Product Lot Number [id number] -Percent Used 100 -Lot number of Saline Used [id number] -Bleeding Controlled with Pressure -Treatment Response Procedure Tolerated Well -Offloading -Debridement - Subq, 1st 20sq cm No -Apply Skin Sub - 1st 25 sq cm - Legs 1 -Epifix Mesh Application 1-4 (per sq 11 cm) Pain Scale: 0-10 Numeric Is Patient Pain Free? Yes WC - Nurse 3 - General Ulcer D/C NN Start: 01/24/25 09:52 Freq: Status: Active Protocol: Activity Type Activity Date Activity User E-sign Co-sign Detail Recorded Client Recorded Date Recorded By Document 01/24/25 10:27 TS [id number] 01/24/25 10:28 TS Document 01/28/25 11:42 JM [id number] 01/28/25 11:44 JM Document 01/31/25 10:48 RB [id number] 01/31/25 10:49 RB Document 02/04/25 13:39 RB [id number] 02/04/25 13:41 RB Document 02/07/25 11:09 ML [id number] 02/07/25 11:10 ML Document 02/12/25 11:07 TS [id number] 02/12/25 11:07 TS 01/24/25 01/28/25 01/31/25 10:27 11:42 10:48 Wound Care Center Nurse 3 1-Left lateral leg -Ulcer Cleansing Soap and Water -Foul Odor after Cleansing No -Primary Dressing Applied Aquacel Extra Aquacel Extra Aquacel Extra -Other Dressing abd ABD -Primary Dressing Covered/Secured with Other -Other Covering covered w/ABD pad -Patient Supplied Dressing Yes -Aquacel Extra 1 0 1 -Aquacel AG 4x4 LLE -Lotion applied to leg before No compression wrap -Multi-Layered Wrap Application Unna Boot - Unna Boot - Unna Boot - Left Left Left -Unna- Left (Qty applied) 1 1 1 Treatment Response Procedure Tolerated Well Pain Scale: 0-10 Numeric Is Patient Pain Free? Yes Yes Yes WC - Visit Discharge Discharge Condition Stable Stable Stable Ambulatory Status Ambulatory Ambulatory Ambulatory Transportation Private Auto Private Auto Private Auto Medication Reconcilliation completed & No No provided to patient/care provider Clinical Summary of Care Provided Yes Yes 02/04/25 02/07/25 02/12/25 13:39 11:09 11:07 Wound Care Center Nurse 3 1-Left lateral leg -Ulcer Cleansing Wound Cleanser -Foul Odor after Cleansing -Primary Dressing Applied -Other Dressing aquacel extra/ abd abd -Primary Dressing Covered/Secured with -Other Covering -Patient Supplied Dressing -Aquacel Extra -Aquacel AG 4x4 1 LLE -Lotion applied to leg before Yes compression wrap -Multi-Layered Wrap Application Unna Boot - Unna Boot - Unna Boot - Left Left Left -Unna- Left (Qty applied) 1 1 1 Treatment Response Procedure Tolerated Well Pain Scale: 0-10 Numeric Is Patient Pain Free? Yes Yes Yes WC - Visit Discharge Discharge Condition Stable Stable Ambulatory Status Ambulatory Ambulatory Transportation Private Auto Private Auto Medication Reconcilliation completed & No No provided to patient/care provider Clinical Summary of Care Provided Yes Yes Charges/Coding Multi Select Codes Visit Charges Office Visit/Consults: 74230 OV L4 New 45 min Integumentary Integumentary CPT Codes: 67946 Skin sub graft trnk/arm/leg Assessment/Plan Assessment/Plan (1) Ulcer of left lower extremity with fat layer exposed: CODE(S): L97.922 - Non-pressure chronic ulcer of unspecified part of left lower leg with fat layer exposed (2) Stasis dermatitis of both legs: CODE(S): I87.2 - Venous insufficiency (chronic) (peripheral) (3) Bilateral lower extremity edema: CODE(S): R60.0 - Localized edema (4) Venous stasis ulcer of left lower leg with edema of left lower leg: CODE(S): I83.029 - Varicose veins of left lower extremity with ulcer of unspecified site; I83.892 - Varicose veins of left lower extremity with other complications; L97.929 - Non-pressure chronic ulcer of unspecified part of left lower leg with unspecified severity; R60.0 - Localized edema (5) Localized swelling of both lower legs: CODE(S): R22.43 - Localized swelling, mass and lump, lower limb, bilateral PLAN: Plan EpiFix allograft #7 was applied today. The allograft and its dressing are to be left in place, undisturbed, until the patient's return visit next week. Compression is to continue by means of an Unna compression wrap, which is to be reapplied today, and left in place until the patient's return visit in 1 week. Twice weekly Unna compression wrap changes would be preferred, but the holiday week precludes this option. The patient has been encouraged to continue sleeping on a flat mattress at night. He has been encouraged to elevate his lower extremities during daytime hours as well. Elevation is to be to heart level, or higher, as much as possible. Prolonged idle sitting has been discouraged. Activity/ambulation has been encouraged. The patient has been encouraged to optimize his nutritional intake. Review of the patient's records reveals a noninvasive lower extremity arterial study performed in November 2024 with no evidence of significant arterial occlusive disease in the lower extremities bilaterally. A venous duplex examination in November 2024 revealed no significant abnormalities in the left lower extremity. The patient is to return in 1 week for reevaluation. Total time: 45 minutes
[2025-02-19 09:58] VITALS: BP 131/93; PULSE 92; RESP 18; TEMP 36.4
--- NOTE | 2025-02-19 12:28 | PCM.WC.HP ---
History of Present Illness Date of Service: 02/19/25 Chief Complaint: Chronic Left Leg ULcer History of Wound: The patient is seen as a courtesy to Dr. Ricketts, who is the patient's regular Wound Center provider. The patient's past medical history has been previously documented, as below: Ketty is a 74-year-old who was referred to the wound center due to nonhealing left leg ulcer. Ketty states this has been an ongoing issue since age 20 however current episode has been present since September. It was noted when he looked at his lower extremity with a mirror. No significant pain. Was seen by primary care who is also surgeon and had some interventions which did not yield any significant results so was subsequently referred to the wound center. Feels rather well. Reports a diet rich in protein. Questionable history of diabetes mellitus. No chills, fever or feeling of unwell. The patient claims to sleep on a flat mattress. He denies a history of thrombophlebitis. He states that he is prediabetic, and denies that he currently smokes. [facility] Medical History Localized swelling of both lower legs Venous stasis ulcer of left lower leg with edema of left lower leg Bilateral lower extremity edema Stasis dermatitis of both legs Ulcer of left lower extremity with fat layer exposed Home Medications ?Medication ?Instructions ?Recorded ?Last Taken ?Type atorvastatin 40 mg tablet 40 mg PO DAILY 11/29/24 Unknown History furosemide 20 mg tablet 20 mg PO DAILY 11/29/24 Unknown History lisinopril 2.5 mg tablet 2.5 mg PO DAILY 11/29/24 Unknown History metoprolol succinate 25 mg 25 mg PO DAILY 11/29/24 Unknown History tablet,extended release 24 hr (Toprol XL) amoxicillin 875 mg-potassium 1 tab PO Q12H #14 tabs 01/24/25 Unknown Rx clavulanate 125 mg tablet Allergy/AdvReac Type Severity Reaction Status Date / Time No Known Allergies Allergy Verified 11/29/24 09:12 Social History Smoking Status: Former smoker Vital Signs Vital Signs Vital Signs: 02/19/25 09:58 Temperature 97.6 F L Temperature Source Temporal Pulse Rate 92 Respiratory Rate 18 Blood Pressure 131/93 H Blood Pressure Mean 105 Blood Pressure Source Monitor Blood Pressure Position Supine Blood Pressure Location Right Arm Oxygen Delivery Method Room Air Physical Exam Const alert, oriented x3 and no apparent distress General Appearance: cooperative, comfortable and well developed Orientation / Consciousness: awake, oriented to person, oriented to place and oriented to time Exam Limitations: no limitations HEENT normocephalic and head/scalp atraumatic Head and Scalp: normal to inspection, normocephalic and atraumatic Face and Sinus: normal facial exam Nose: external nose normal External Ear: external ears normal Eyes EOMs intact bilaterally General Eye: normal appearance of both eyes Alignment: alignment normal Neck full ROM General: normal visual inspection Resp normal respiratory effort, normal air movement, no retractions and no use of accessory muscles Effort and Inspection: able to speak in complete sentences Extremity General Extremity: edema Skin Wounds: wounds noted size Size: See clinical note, bed granulating well, margins well approximated, no odor, open and surrounding erythema Wound Narrative: Moderate swelling and edema are noted in the patient's left lower extremity. Mild, diffuse, scaly dermatitis is noted in the left gaiter area. An ulceration is noted on the distal left lateral calf, just proximal to the ankle. There is no sign of infection or cellulitis. Dimensions are documented elsewhere. There is a small amount of bioburden and slough. Ulcer margins are moderately well beveled. Neuro oriented x3, CN's II-XII intact bilaterally, moves all extremities and no focal motor deficits Sensorium / Orientation: awake, alert, oriented to person, oriented to place and oriented to time Speech: speech normal Psych cooperative and affect normal Attitude: calm Speech: normal speech Mood & Affect: euthymic mood Attention / Concentration: attention grossly intact Debridement Note Debridement Note Wound debrided: Left lower extremity venous ulceration Laterality: Left Type of Debridement: Excisional debridement Anesthesia Used: 5% Lidocaine Gel and Cetacaine Depth: Down to and including healthy tissue and in the subcutaneous layer Percentage of wound debrided: 100 Instrument Used: 5mm curette Tissue Removed: Slough and bioburden Severity: Fat Layer Exposed Amount of bleeding with debridement: Mild Bleeding Controlled with: Compression and gauze Patient tolerated procedure: Patient tolerated procedure well Debridement Free Text: Following a routine excisional debridement, which was well-tolerated, a meshed EpiFix allograft was applied. Based upon the dimensions of the ulceration, a 4.0 cm x 4.5 cm meshed EpiFix allograft was applied topically. The allograft was removed from its sterile packaging, cut to the appropriate configuration, and was applied to the ulceration. Once in place, Adaptic Touch was applied over the graft, which was then secured with Steri-Strips. Collagen hydrogel was applied over the Adaptic Touch, and a dry, sterile gauze dressing was applied. This represents the 8th application of an allograft at this site. 100% of the allograft was utilized. Post-Debridement Measurements and Additional Note: Post-Debridement Measurements/Treatment - Nurse 1 - General Ulcer Assessment Start: 01/24/25 09:52 Freq: Status: Active Protocol: .LOWEXT Activity Type Activity Date Activity User E-sign Co-sign Detail Recorded Client Recorded Date Recorded By Document 01/24/25 09:52 RB [id number] 01/24/25 09:57 RB Document 01/28/25 11:02 JM [id number] 01/28/25 11:42 JM Document 01/31/25 09:51 TS [id number] 01/31/25 09:58 TS Document 02/04/25 13:39 RB [id number] 02/04/25 13:41 RB Document 02/07/25 10:12 TS [id number] 02/07/25 10:22 TS Document 02/12/25 09:54 RB [id number] 02/12/25 10:05 RB Document 02/19/25 09:58 GM [id number] 02/19/25 10:03 01/24/25 01/28/25 01/31/25 09:52 11:02 09:51 - Today's Visit Information Type of service Follow-up Visit Nurse-only Follow-up Visit (Physician/SOFTWARE QUALITY ASSURANCE ENGINEER Visit (Physician/SOFTWARE QUALITY ASSURANCE ENGINEER ) ) Physician Covering Nurse Only Visit Jordan Combs Arrival Mode Ambulatory Ambulatory Ambulatory Transfer Assistance None None Patient Identification Verified (Name & Yes Yes Yes ) Patient Requires Transmission-Based No No No Precautions Safety Precautions NA Fall Prevention Vital Signs Temperature (97.8 F-99.1 F) 97.8 F 97.6 F L 96.5 F L Temperature Source Temporal Temporal Temporal Pulse Rate (60-100) 113 H 92 64 Pulse Location Monitor Monitor Monitor Respiratory Rate (12-18) 18 18 16 Respiratory rate source Observation Observation Observation Oxygen Delivery Method Room Air Room Air Room Air Blood Pressure (90/60-120/80) 119/86 H 116/82 H 149/118 H Blood Pressure Mean 97 93 128 Source Monitor Monitor Monitor Position Sitting Sitting Sitting Blood Pressure Location Left Arm Left Arm Right Arm History Since Last Visit- (Skip if this is Patient's initial visit) Have you changed medications since your No No last visit? Any new allergies or adverse reactions No No Had a fall/change in ADL's that may No No increase risk of falls Signs or symptoms of abuse and/or No No neglect since last visit Have you been in the hospital since your No No last visit? Has dressing in place as prescribed Yes Yes Has compression in place as prescribed Yes Yes Has offloadiing in place as prescribed N/A N/A Experienced any changes in pain level or No No management Left Footwear Regular Shoe Right Footwear Regular Shoe Pain Scale: 0-10 Numeric Is Patient Pain Free? Yes Yes Yes 02/04/25 02/07/25 02/12/25 13:39 10:12 09:54 WC - Today's Visit Information Type of service Nurse-only Follow-up Visit Follow-up Visit Visit (Physician/SOFTWARE QUALITY ASSURANCE ENGINEER (Physician/SOFTWARE QUALITY ASSURANCE ENGINEER ) ) Physician Covering Nurse Only Visit Arrival Mode Ambulatory Ambulatory Ambulatory Transfer Assistance None None Patient Identification Verified (Name & Yes Yes Yes ) Patient Requires Transmission-Based No No Precautions Safety Precautions Fall Prevention Vital Signs Temperature (97.8 F-99.1 F) 98 F 97.5 F L 97.1 F L Temperature Source Temporal Temporal Temporal Pulse Rate (60-100) 94 87 89 Pulse Location Monitor Monitor Monitor Respiratory Rate (12-18) 18 16 18 Respiratory rate source Observation Observation Oxygen Delivery Method Room Air Room Air Room Air Blood Pressure (90/60-120/80) 119/82 H 138/74 H 131/86 H Blood Pressure Mean 94 95 101 Source Monitor Monitor Monitor Position Sitting Semi-Fowlers Sitting Blood Pressure Location Left Arm Right Arm Right Arm History Since Last Visit- (Skip if this is Patient's initial visit) Have you changed medications since your No No No last visit? Any new allergies or adverse reactions No No No Had a fall/change in ADL's that may No No No increase risk of falls Signs or symptoms of abuse and/or No No No neglect since last visit Have you been in the hospital since your No No last visit? Has dressing in place as prescribed Yes Yes Yes Has compression in place as prescribed Yes Yes Yes Has offloadiing in place as prescribed N/A N/A N/A Experienced any changes in pain level or No No No management Left Footwear Regular Shoe Regular Shoe Right Footwear Regular Shoe Regular Shoe Pain Scale: 0-10 Numeric Is Patient Pain Free? Yes Yes Yes 02/19/25 09:58 WC - Today's Visit Information Type of service Initial Visit Physician Covering Nurse Only Visit Arrival Mode Ambulatory Transfer Assistance None Patient Identification Verified (Name & Yes ) Patient Requires Transmission-Based Precautions Safety Precautions Vital Signs Temperature (97.8 F-99.1 F) 97.6 F L Temperature Source Temporal Pulse Rate (60-100) 92 Pulse Location Monitor Respiratory Rate (12-18) 18 Respiratory rate source Ausculation Oxygen Delivery Method Room Air Blood Pressure (90/60-120/80) 131/93 H Blood Pressure Mean 105 Source Monitor Position Supine Blood Pressure Location Right Arm History Since Last Visit- (Skip if this is Patient's initial visit) Have you changed medications since your No last visit? Any new allergies or adverse reactions No Had a fall/change in ADL's that may No increase risk of falls Signs or symptoms of abuse and/or No neglect since last visit Have you been in the hospital since your No last visit? Has dressing in place as prescribed Yes Has compression in place as prescribed Yes Has offloadiing in place as prescribed Yes Experienced any changes in pain level or No management Left Footwear Regular Shoe Right Footwear Regular Shoe Pain Scale: 0-10 Numeric Is Patient Pain Free? Yes - Nurse 1 - General Ulcer Measurement Start: 01/24/25 09:52 Freq: Status: Active Protocol: Activity Type Activity Date Activity User E-sign Co-sign Detail Recorded Client Recorded Date Recorded By Document 01/24/25 09:52 RB [id number] 01/24/25 09:57 RB Document 01/28/25 11:02 JM [id number] 01/28/25 11:42 JM Document 01/31/25 09:51 TS [id number] 01/31/25 09:58 TS Document 02/04/25 13:39 RB [id number] 02/04/25 13:41 RB Document 02/07/25 10:12 TS [id number] 02/07/25 10:22 TS Document 02/12/25 09:54 RB [id number] 02/12/25 10:05 RB Document 02/19/25 09:58 GM [id number] 02/19/25 10:03 GM 01/24/25 01/28/25 01/31/25 09:52 11:02 09:51 Wound Center Nurse 1 1-Left lateral leg -Combined with other wound No No No -Current Size (cm) - Length 4 4 -Current Size (cm) - Width 2.5 2.2 -Current Size (cm) - Depth 0.2 0.2 -Total Square Cm 10.0 8.8 -Date of Last Picture (Recall this 01/24/25 01/31/25 field) -Photo Taken Yes Yes -Epithelialization -Tunneling No -Undermining/Tunneling No No -Circular Undermining No No -Exudate Amt Medium Large Medium -Exudate Type Serosanguineous Serosanguineous Serosanguineous -Wound Margin Thickened & Distinct, Rolled Under Outline Attached -Granulation Amt Medium (34-66%) Small (1-33%) -Granulation Quality [place],Red -Slough/Fibrin Yes -Necrosis Amt Medium (34-66%) Small (1-33%) -Necrotic Tissue Type Adherent Slough Adherent Slough -Structure Exposed N/A None/Limited to Skin Breakdown -Texture (Ashely-wound Skin Appearance) Assessed Assessed -Moisture (Ashely-wound Skin Appearance) Assessed Assessed -Color (Ashely-wound Skin Appearance) Erythema Assessed -Temperature (Ashely-wound Skin No Abnormality No Abnormality Appearance) (Pt Warm) (Pt Warm) -Tenderness on Palpation (Ashely-wound No Skin Appearance) -Ulcer Cleansing Wound Cleanser Soap and Water -Foul Odor after Cleansing No No -Anesthetic Used 5% Lidocaine 5% Lidocaine Gel Gel -Wound Comment(s) epimesh/wound veil/ steristrips left intact Lower Limb Edema Present Yes Right Calf (cm) Point of measurement (cm from the medial instep) Right Ankle (cm) Point of Measurement (cm from the medial instep) Left Calf (cm) 40.6 41.5 Point of measurement (cm from the medial 40 instep) Left Ankle (cm) 29 Point of Measurement (cm from the medial 32 instep) 02/04/25 02/07/25 02/12/25 13:39 10:12 09:54 Wound Center Nurse 1 1-Left lateral leg -Combined with other wound No No No -Current Size (cm) - Length 4 3.3 -Current Size (cm) - Width 3.1 1.3 -Current Size (cm) - Depth 0.2 0.2 -Total Square Cm 12.4 4.29 -Date of Last Picture (Recall this 02/07/25 02/12/25 field) -Photo Taken Yes Yes -Epithelialization -Tunneling No -Undermining/Tunneling No No -Circular Undermining No No -Exudate Amt Medium Medium Large -Exudate Type Serosanguineous Serosanguineous Serosanguineous -Wound Margin Thickened & Distinct, Rolled Under Outline Attached -Granulation Amt Small (1-33%) Medium (34-66%) -Granulation Quality [place],Red [place] -Slough/Fibrin Yes Yes -Necrosis Amt Large (67-100%) Medium (34-66%) -Necrotic Tissue Type Adherent Slough Adherent Slough -Structure Exposed Fascia N/A -Texture (Ashely-wound Skin Appearance) Assessed Assessed -Moisture (Ashely-wound Skin Appearance) No Abnormality, Assessed Assessed -Color (Ashely-wound Skin Appearance) Assessed Assessed, Hemosiderin Staining -Temperature (Ashely-wound Skin No Abnormality No Abnormality Appearance) (Pt Warm) (Pt Warm) -Tenderness on Palpation (Ashely-wound No Skin Appearance) -Ulcer Cleansing Soap and Water Wound Cleanser -Foul Odor after Cleansing No No -Anesthetic Used 5% Lidocaine 5% Lidocaine Gel Gel -Wound Comment(s) Lower Limb Edema Present Yes Yes Right Calf (cm) Point of measurement (cm from the medial 30 instep) Right Ankle (cm) Point of Measurement (cm from the medial 29 instep) Left Calf (cm) 39 38.5 Point of measurement (cm from the medial 32 instep) Left Ankle (cm) 25.7 26.2 Point of Measurement (cm from the medial 23 instep) 02/19/25 09:58 Wound Center Nurse 1 1-Left lateral leg -Combined with other wound No -Current Size (cm) - Length 3.1 -Current Size (cm) - Width 2.0 -Current Size (cm) - Depth 0.2 -Total Square Cm 6.20 -Date of Last Picture (Recall this 02/19/25 field) -Photo Taken Yes -Epithelialization Small 1-33% -Tunneling No -Undermining/Tunneling No -Circular Undermining No -Exudate Amt Medium -Exudate Type Serosanguineous -Wound Margin Distinct, Outline Attached -Granulation Amt Small (1-33%) -Granulation Quality [place],Red -Slough/Fibrin Yes -Necrosis Amt -Necrotic Tissue Type Adherent Slough -Structure Exposed N/A -Texture (Ashely-wound Skin Appearance) Assessed, Localized Edema -Moisture (Ashely-wound Skin Appearance) Assessed,Dry/ Scaly -Color (Ashely-wound Skin Appearance) Assessed, Erythema -Temperature (Ashely-wound Skin No Abnormality Appearance) (Pt Warm) -Tenderness on Palpation (Ashely-wound No Skin Appearance) -Ulcer Cleansing Soap and Water -Foul Odor after Cleansing No -Anesthetic Used 5% Lidocaine Gel -Wound Comment(s) Lower Limb Edema Present Yes Right Calf (cm) 41.5 Point of measurement (cm from the medial instep) Right Ankle (cm) 26.5 Point of Measurement (cm from the medial instep) Left Calf (cm) 38 Point of measurement (cm from the medial instep) Left Ankle (cm) 27.5 Point of Measurement (cm from the medial instep) WC - Nurse 2 - General Ulcer CM Notes Start: 01/24/25 09:52 Freq: Status: Active Protocol: Activity Type Activity Date Activity User E-sign Co-sign Detail Recorded Client Recorded Date Recorded By Document 01/24/25 10:18 GM(2) [id number] 01/24/25 10:20 GM(2) Edit Result 01/24/25 10:18 GM(2) (1) [id number] 02/01/25 07:42 GM(2) Document 01/31/25 10:25 GM(2) [id number] 01/31/25 10:28 GM(2) Document 02/07/25 10:41 GM(2) [id number] 02/07/25 10:45 GM(2) Document 02/12/25 10:38 DS [id number] 02/12/25 10:51 DS Document 02/19/25 11:04 DS [id number] 02/19/25 11:06 DS (1) 1-Left lateral leg - Debridement - Subq, 1st 20sq cm Yes => No 01/24/25 01/31/25 02/07/25 10:18 10:25 10:41 Wound Center Nurse 2 1-Left lateral leg -Time 10: 10: 10:41 -Correct Patient Yes Yes Yes -Correct Side, Site, Position Yes Yes Yes -Correct Procedure Yes Yes Yes -Procedure Performed Yes Yes Yes -Type of Procedure Debridement Debridement Debridement -Clinical Debridement Subcutaneous Subcutaneous Subcutaneous -Tissue Removed Subcutaneous Subcutaneous Subcutaneous -Post Debridement (cm) - Length 3.9 3.7 -Post Debridement (cm) - Width 2.4 1.9 -Post Debridement (cm) - Depth 0.2 0.2 -Total Square (Post) (cm) 9.36 7.03 -Area of Debridement (cm) - Length 3.9 3.7 -Area of Debridement (cm) - Width 2.4 1.9 -Total Square (Area) (cm) 9.36 7.03 -Tunneling No No No -Undermining/Tunneling No No No -Circular Undermining No No No -Wound/Ulcer Outcome Not Healed Not Healed Not Healed -Ulcer Cleansing Rinsed/ Rinsed/ Rinsed/ Irrigated with Irrigated with Irrigated with Saline Saline Saline -Foul Odor after Cleansing No No No -Bioengineered Tissue Yes Yes Yes -Type of Bioengineered Tissue -Type of Bioengineered Tissue Epifix Mesh Epifix Mesh Epifix Mesh -Expiration Date 05/22/29 07/22/29 07/22/29 -Product Lot Number [id number] -Percent Used 100 100 100 -Lot number of Saline Used [id number] -Bleeding Controlled with Pressure Pressure Pressure -Treatment Response Procedure Procedure Procedure Tolerated Well Tolerated Well Tolerated Well -Offloading No No -Debridement - Subq, 1st 20sq cm No Yes No -Apply Skin Sub - 1st 25 sq cm - Legs 1 1 1 -Epifix Mesh Application 1-4 (per sq 11 11 11 cm) -Epifix Mesh Application 5-8 (per sq cm) Pain Scale: 0-10 Numeric Is Patient Pain Free? Yes Yes Yes 02/12/25 02/19/25 10:38 11:04 Wound Center Nurse 2 1-Left lateral leg -Time 10:38 11:04 -Correct Patient Yes Yes -Correct Side, Site, Position Yes Yes -Correct Procedure Yes Yes -Procedure Performed Yes Yes -Type of Procedure Debridement Debridement -Clinical Debridement Subcutaneous Subcutaneous -Tissue Removed Subcutaneous Subcutaneous -Post Debridement (cm) - Length 3.5 3.5 -Post Debridement (cm) - Width 2.0 2.0 -Post Debridement (cm) - Depth 0.3 0.3 -Total Square (Post) (cm) 7.00 7.00 -Area of Debridement (cm) - Length 3.5 3.5 -Area of Debridement (cm) - Width 2.0 2.0 -Total Square (Area) (cm) 7.00 7.00 -Tunneling No No -Undermining/Tunneling No No -Circular Undermining No No -Wound/Ulcer Outcome Not Healed Not Healed -Ulcer Cleansing Rinsed/ gauze Irrigated with Saline -Foul Odor after Cleansing No No -Bioengineered Tissue Yes Yes -Type of Bioengineered Tissue Epifix Mesh Application 5-8 -Type of Bioengineered Tissue Epifix Mesh -Expiration Date 07/22/29 07/22/29 -Product Lot Number [id number] -Percent Used 100 100 -Lot number of Saline Used [id number] -Bleeding Controlled with Pressure Pressure -Treatment Response Procedure Procedure Tolerated Well Tolerated Well -Offloading -Debridement - Subq, 1st 20sq cm No No -Apply Skin Sub - 1st 25 sq cm - Legs 1 1 -Epifix Mesh Application 1-4 (per sq 11 cm) -Epifix Mesh Application 5-8 (per sq 11 cm) Pain Scale: 0-10 Numeric Is Patient Pain Free? Yes Yes - Nurse 3 - General Ulcer D/C NN Start: 01/24/25 09:52 Freq: Status: Active Protocol: Activity Type Activity Date Activity User E-sign Co-sign Detail Recorded Client Recorded Date Recorded By Document 01/24/25 10:27 TS [id number] 01/24/25 10:28 TS Document 01/28/25 11:42 JM [id number] 01/28/25 11:44 JM Document 01/31/25 10:48 RB [id number] 01/31/25 10:49 RB Document 02/04/25 13:39 RB [id number] 02/04/25 13:41 RB Document 02/07/25 11:09 ML [id number] 02/07/25 11:10 ML Document 02/12/25 11:07 TS [id number] 02/12/25 11:07 TS Document 02/19/25 11:13 TS [id number] 02/19/25 11:14 TS 01/24/25 01/28/25 01/31/25 10:27 11:42 10:48 Wound Care Center Nurse 3 1-Left lateral leg -Ulcer Cleansing Soap and Water -Foul Odor after Cleansing No -Primary Dressing Applied Aquacel Extra Aquacel Extra Aquacel Extra -Other Dressing abd ABD -Primary Dressing Covered/Secured with Other -Other Covering covered w/ABD pad -Patient Supplied Dressing Yes -Aquacel Extra 1 0 1 -Aquacel AG 4x4 LLE -Lotion applied to leg before No compression wrap -Multi-Layered Wrap Application Unna Boot - Unna Boot - Unna Boot - Left Left Left -Unna- Left (Qty applied) 1 1 1 Treatment Response Procedure Tolerated Well Pain Scale: 0-10 Numeric Is Patient Pain Free? Yes Yes Yes WC - Visit Discharge Discharge Condition Stable Stable Stable Ambulatory Status Ambulatory Ambulatory Ambulatory Transportation Private Auto Private Auto Private Auto Medication Reconcilliation completed & No No provided to patient/care provider Clinical Summary of Care Provided Yes Yes 02/04/25 02/07/25 02/12/25 13:39 11:09 11:07 Wound Care Center Nurse 3 1-Left lateral leg -Ulcer Cleansing Wound Cleanser -Foul Odor after Cleansing -Primary Dressing Applied -Other Dressing aquacel extra/ abd abd -Primary Dressing Covered/Secured with -Other Covering -Patient Supplied Dressing -Aquacel Extra -Aquacel AG 4x4 1 LLE -Lotion applied to leg before Yes compression wrap -Multi-Layered Wrap Application Unna Boot - Unna Boot - Unna Boot - Left Left Left -Unna- Left (Qty applied) 1 1 1 Treatment Response Procedure Tolerated Well Pain Scale: 0-10 Numeric Is Patient Pain Free? Yes Yes Yes WC - Visit Discharge Discharge Condition Stable Stable Ambulatory Status Ambulatory Ambulatory Transportation Private Auto Private Auto Medication Reconcilliation completed & No No provided to patient/care provider Clinical Summary of Care Provided Yes Yes 02/19/25 11:13 Wound Care Center Nurse 3 1-Left lateral leg -Ulcer Cleansing -Foul Odor after Cleansing -Primary Dressing Applied -Other Dressing -Primary Dressing Covered/Secured with -Other Covering -Patient Supplied Dressing -Aquacel Extra -Aquacel AG 4x4 LLE -Lotion applied to leg before Yes compression wrap -Multi-Layered Wrap Application Unna Boot - Left -Unna- Left (Qty applied) 1 Treatment Response Pain Scale: 0-10 Numeric Is Patient Pain Free? Yes WC - Visit Discharge Discharge Condition Stable Ambulatory Status Ambulatory Transportation Private Auto Medication Reconcilliation completed & No provided to patient/care provider Clinical Summary of Care Provided Yes Charges/Coding Procedures Integumentary [id number]: 06267 Skin sub graft trnk/arm/leg Assessment/Plan Assessment/Plan (1) Venous stasis ulcer of left lower leg with edema of left lower leg: CODE(S): I83.029 - Varicose veins of left lower extremity with ulcer of unspecified site; I83.892 - Varicose veins of left lower extremity with other complications; L97.929 - Non-pressure chronic ulcer of unspecified part of left lower leg with unspecified severity; R60.0 - Localized edema (2) Ulcer of left lower extremity with fat layer exposed: CODE(S): L97.922 - Non-pressure chronic ulcer of unspecified part of left lower leg with fat layer exposed (3) Stasis dermatitis of both legs: CODE(S): I87.2 - Venous insufficiency (chronic) (peripheral) (4) Bilateral lower extremity edema: CODE(S): R60.0 - Localized edema (5) Localized swelling of both lower legs: CODE(S): R22.43 - Localized swelling, mass and lump, lower limb, bilateral PLAN: Plan EpiFix allograft #8 was applied today. The allograft and its dressing are to be left in place, undisturbed, until the patient's return visit next week. Compression is to continue by means of an Unna compression wrap, which is to be reapplied today, and left in place until the patient's return visit in 1 week. Twice weekly Unna compression wrap changes would be preferred, but the holiday and other circumstances preclude this option. The patient has been encouraged to continue sleeping on a flat mattress at night. He has been encouraged to elevate his lower extremities during daytime hours as well. Elevation is to be to heart level, or higher, as much as possible. Prolonged idle sitting has been discouraged. Activity/ambulation has been encouraged. The patient has been encouraged to optimize his nutritional intake. Review of the patient's records reveals a noninvasive lower extremity arterial study performed in November 2024 with no evidence of significant arterial occlusive disease in the lower extremities bilaterally. A venous duplex examination in November 2024 revealed no significant abnormalities in the left lower extremity. The patient is to return in 1 week for reevaluation by Dr. Ricketts. Total time: 25 minutes
--- NOTE | 2025-02-19 14:01 | WC ---
PHOTO: LEFT LAT LEG 02/19/25
== END 2025-02-20 23:59 | disposition home or self-care (01) ==
LOC: WC 10:15
PROVIDERS: PCP Internal Medicine; Referring Provider Internal Medicine; Visit Provider Internal Medicine
DX: I83.022 Varicose veins of left lower extremity with ulcer of calf (principal); L97.222 Non-pressure chronic ulcer of left calf with fat layer exposed; I87.2 Venous insufficiency (chronic) (peripheral); Z87.891 Personal history of nicotine dependence; R60.0 Localized edema; R22.43 Localized swelling, mass and lump, lower limb, bilateral
CPT/HCPCS: 11042; 15271; 29580; Q4186